=== PATIENT | female | born 1955 | race Caucasian/White ===

== ENCOUNTER 2021-01-14 10:54 | Emergency (ER) | payer MEDICARE, MEDICAID, SELFPAY ==
[2021-01-14] VITALS (17 sets, daily range): BP systolic 149–219; BP diastolic 61–78; PULSE 53–79; RESP 12–22; O2SAT 94–98
--- NOTE | ~2021-01-14 | CT_ITS ---
EXAMINATION: CTA brain carotid EXAM DATE: 01/14/2021 13:13 INDICATION: Headache, left neck pain, r/o dissection. TECHNIQUE: Noncontrast head CT. Spiral CTA of the carotid arteries was performed with intravenous i njection 100 cc of Omnipaque 350. Axial, coronal, sagittal reformatted images reviewed. Additional r eformatted images created on dedicated 3-D workstation. NASCET comparable standard used to assess th e degree of arterial stenosis. Spiral CT angiogram cerebral arteries performed with the same intrave nous injection of contrast. Source images of the brain CTA transferred to dedicated workstation for 3 -D rotational image creation. Coronal, sagittal maximum intensity pixel images also reviewed. The d ose-length product (DLP) for this examination was 1702.71 mGy-cm. The exposure was tailored accordi ng to patient size, and iterative reconstruction (ASIR) was used as additional dose reduction techniq ue. There is no prior study for comparison. FINDINGS: There is shelflike plaque at the aortic arch just proximal to the left subclavian origin, p rojecting into the lumen of the aortic arch, with short band (about 1 cm) of fibrous plaque or intima l flap inferior to this. No carotid, subclavian or vertebral artery dissection. There is right caroti d bulb 25% stenosis and left carotid bulb 40% stenosis. There is dense circumferential plaque of the intracranial carotid arteries with no more than mild stenosis suspected. Left vertebral artery is dom inant. There are no cerebral artery aneurysms. There is symmetric cerebral artery arborization. The s agittal, transverse and sigmoid sinuses enhance normally, no venous sinus thrombosis. Internal cerebr al veins also enhance normally. There is no acute intraparenchymal hemorrhage. No evidence of intraparenchymal brain mass lesion. N o evidence of acute infarction. There is moderate periventricular and subcortical hypodensity, nonspe cific but probably related to small vessel ischemic disease. There is mild prominence of the sulci and ventricles related to cerebral atrophy. There is no mass effect or midline shift. There is no obstructive hydrocephalus suspected. There are no extra-axial collections. Incidental Findings: Mild emphysema. Right upper lobe granuloma. Advanced cervical arthropathy. IMPRESSION: 1. Aortic arch shelflike plaque projecting into the lumen with small thin band extending from this t o aortic arch. Could be considered small intimal flap/dissection. 2. Right carotid bulb 25% stenosis, left 40% stenosis. 3. Age-related intracranial findings. Reviewed, dictated and finalized at location B. IMPRESSION: 1. Aortic arch shelflike plaque projecting into the lumen with small thin band extending from this to aortic arch. Could be considered small intimal flap/dis section. 2. Right carotid bulb 25% stenosis, left 40% stenosis. 3. Age-related intracranial findings.
--- NOTE | 2021-01-14 11:06 | ECG_ITS ---
Measurements Intervals [place] Rate: 67 P: 63 DE: 215 QRS: 59 QRSD: 103 T: 60 QT: 424 QTc: 449 Interpretive Statements SINUS RHYTHM WITH FIRST DEGREE AV BLOCK BASELINE ARTIFACT- I, II, AVR, AVL ,AVF, V1, V6 ABNORMAL ECG Electronically Signed On 01-14-2021 11:46:28 CDT by Kennedy Dykes D.O.
[2021-01-14 11:09] LABS: Glucose Point of Care 272 mg/dl (65-105)
[2021-01-14 11:23] LABS: Basophils Absolute Auto 0.1 K/mm3 (0.0-0.1); Basophils Percent Auto 0.7 % (0.2-1.2); Eosinophils Absolute Auto 0.1 K/mm3 (0-0.3); Eosinophils Percent Auto 1.3 % (0-4.4); Hematocrit 46.1 % (37.0-47.0); Hemoglobin 15.2 g/dL (12.0-15.0); Immature Granulocyte Absolute 0.03 K/mm3 (0.00-0.031); Immature Granulocyte Percent A 0.3 % (0-0.5); Lymphocytes Absolute Auto 4.27 K/mm3 (0.9-3.2); Lymphocytes Percent Auto 43.6 % (18.3-44.2); Mean Corpuscular Hemoglobin 29.6 pg (26-34); Mean Corpuscular Volume 89.7 fl (80-100); Mean Platelet Volume 10.3 fl (7.4-10.4); Monocytes Absolute Auto 0.7 K/mm3 (0.1-0.6); Monocytes Percent Auto 7.2 % (2.6-8.5); Neutrophils Absolute Auto 4.6 K/mm3 (1.3-6.7); Neutrophils Percent Auto 46.9 % (45.5-73.1); Platelet Count Result 193 k/mm3 (150-375); Red Blood Count 5.14 M/mm3 (4.2-5.4); Red Cell Distribution Width 13.8 % (11.5-14.5); White Blood Count 9.8 K/mm3 (4.5-10.0)
[2021-01-14 11:36] LABS: Alanine Aminotransferase 18 U/L (4-35); Albumin Level 4.1 g/dL (3.5-5.1); Alkaline Phosphatase 52 U/L (38-126); Anion Gap 7 mmol/L (8-16); Aspartate Amino Transferase 25 U/L (14-36); Blood Urea Nitrogen 11 mg/dL (7-17); Calcium 9.2 mg/dL (8.4-10.2); Carbon Dioxide 29 mmol/L (22-30); Chloride 103 mmol/L (98-107); Estimated CRCL calculation 67 ml/min; Estimated Glomerular Filt Rate > 60; Glucose 265 mg/dL (65-105); Sodium 139 mmol/L (137-145)
[2021-01-14 11:37] LABS: Add Urine Microscopic? YES; Appearance Urine Cloudy (Clear); Bacteria Urine Trace /hpf; Bilirubin Urine Negative (Negative); Blood Urine Negative (Negative); Color Urine Amber (Yellow); Glucose Urine UA 1+ mg/dL (Negative); Ketones Urine Trace mg/dL (Negative); Leukocyte Esterase Ur 1+ LEU/UL (Negative); Mucus Urine Few /lpf; Nitrate Urine Negative (Negative); Protein Urine 2+ mg/dL (Negative); Specific Grav Ur 1.027 (1.001-1.035); Squamous Epithelial Cell Urine Many /hpf (Few); WBC Urine 31-50 /hpf
--- NOTE | 2021-01-14 12:02 | ED.GENADULT ---
HPI - General Adult General Chief complaint: Weakness Stated complaint: Multiple Complaints Time Seen by Provider: 01/14/21 11:12 Source: patient History of Present Illness HPI narrative: Patient is a 65 y/o female complaining of generalized headache since yesterday. She describes her pain as a hurting pain. She took Tylenol, which did not help. She rates her headache as 10/10. She also has nausea, vomiting, left neck pain and generalized weakness. She denies focal weakness. Related Data Home Medications Medication Instructions Recorded Confirmed alprazolam 01/14/21 01/14/21 aspirin 81 mg PO DAILY 01/14/21 carvedilol 01/14/21 ezetimibe mg 01/14/21 furosemide 01/14/21 insulin lispro 01/14/21 lisinopril 01/14/21 Allergies Allergy/AdvReac Type Severity Reaction Status Date / Time codeine Allergy Unknown Nausea and Verified 01/14/21 14:22 Vomiting Review of Systems Constitutional: Constitutional: Denies chills, Denies fever(s), Reports headache(s) and Reports weakness Eyes: Eyes: Denies blurry vision ENT: Reports headache(s) and Reports neck pain Cardiovascular: Cardiovascular: Denies chest pain and Denies dyspnea Respiratory: Respiratory: Denies cough and Denies dyspnea Gastrointestinal: Gastrointestinal: Denies abdominal pain, Denies diarrhea, Denies nausea and Denies vomiting Genitourinary: Genitourinary: Denies hematuria and Denies dysuria Musculoskeletal: Musculoskeletal: Denies back pain and Reports neck pain Neurologic: Reports headache(s) and Reports weakness Exam Const: General: no acute distress and well developed Orientation/consciousness: oriented to person, oriented to place, oriented to time and patient oriented x3 HENMT: Head: normocephalic Ears: external ears normal General nose exam: Normal external nose present Eyes: General: appearance normal, both eyes and all related structures Conjunctivae: conjunctivae normal Neck: Neck: normal visual inspection and full ROM Chest: Chest palpation & inspection: normal inspection of the chest and no tenderness Resp: Effort & Inspection: normal respiratory effort Auscultation: clear to auscultation bilaterally Cardio: Rate: regular rate Rhythm: regular rhythm GI: GI Palp: No abdominal tenderness and Yes Soft to palpation Skin: General skin exam: normal color and turgor normal Neuro: General: oriented to person, oriented to place, oriented to time and patient oriented x3 Cranial nerves: Yes CN's II-XII intact bilaterally Cognition (Neuro): normal cognition Speech: normal speech Motor exam (neuro): 5/5 motor strength present throughout Sensory Exam: normal sensation Coordination: [id number] test normal and [id number] test normal Extrem: General: normal to inspection, full ROM and no pedal edema Psych: Appearance: grossly normal Mental Status: mental status grossly normal Affect: normal affect Course Consultations Consultation #1: Discussed with Dr. Silva (cardiothoracic surgery), who agrees to accept the patient to [facility]. Discussed with Dr. Watkins (EDP), who agrees to accept the patient to ED. He also recommends transferring patient by air if possible. Date: 01/14/21 Time: 14:08 Vital Signs Vital signs: Vital Signs Pulse Rate 67 01/14/21 11:01 Respiratory Rate 15 01/14/21 11:01 Blood Pressure 180/67 H 01/14/21 11:01 Pulse Oximetry 94 01/14/21 11:01 Pulse Rate 58 L 01/14/21 14:25 Respiratory Rate 16 01/14/21 14:22 Blood Pressure 219/62 H 01/14/21 14:25 Pulse Oximetry 95 01/14/21 14:22 Medical Decision Making Vital Signs Vital Signs: Vital Signs Pulse Rate 67 01/14/21 11:01 Respiratory Rate 15 01/14/21 11:01 Blood Pressure 180/67 H 01/14/21 11:01 Pulse Oximetry 94 01/14/21 11:01 Pulse Rate 58 L 01/14/21 14:25 Respiratory Rate 16 01/14/21 14:22 Blood Pressure 219/62 H 01/14/21 14:25 Pulse Oximetry 95 01/14/21 14:22 Lab Data Resu
[2021-01-14] MEDS: METOCLOPRAMIDE HCL INJ 10 MG/2 ML VIAL IV PUSH (12:37)
[2021-01-14] MEDS: KETOROLAC 30 MG/ML VIAL (*BKC) IV PUSH (12:38)
[2021-01-14] MEDS: diphenhydrAMINE HCl INJ 50 MG/ML VIAL 25 MG IV PUSH (12:38)
[2021-01-14] MEDS: SODIUM CHLORIDE 0.9% IV 1,000 ML 999 ML IV CONT (12:42)
[2021-01-14] MEDS: niCARdipine 20 MG/200 ML 20 MG/200 ML BAG 50 MG IV CONT (14:25)
--- NOTE | 2021-01-29 13:04 | PC.NURSE ---
LATE ENTRY This note is being entered to document information to the patient's record. The following information was omitted on [01/29/21], by [Taylor This medication was initiated at 1425 on 01/14/21 was continued infusing with flight crew. Pt transferred at 1445. Approx 15 mls infused prior to leaving
== END 2021-01-14 14:45 | disposition short-term general hospital (02) ==
PROVIDERS: Emergency Medicine; Emergency Provider Emergency Medicine; PCP Internal Medicine
DX: I71.01 Dissection of thoracic aorta (principal); R51.9 Headache, unspecified; I10 Essential (primary) hypertension; Z79.82 Long term (current) use of aspirin; Z79.4 Long term (current) use of insulin; I44.0 Atrioventricular block, first degree; J44.9 Chronic obstructive pulmonary disease, unspecified; E11.9 Type 2 diabetes mellitus without complications; R82.998 Other abnormal findings in urine
CPT/HCPCS: 36415; 70496; 70498; 80053; 81001; 82948; 85025; 87086; 87088; 93005; 96361; 96374; 96375; 99291; J1200; J1885; J2765; J7030; Q9967

== ENCOUNTER 2021-01-17 05:36 | Inpatient (IN) | payer MEDICARE, MEDICAID, SELFPAY ==
[2021-01-17] VITALS (32 sets, daily range): BP systolic 120–203; BP diastolic 54–81; PULSE 64–96; RESP 14–29; TEMP 36.4–37.7; O2SAT 85–99; BMI 39.8
--- NOTE | ~2021-01-17 | XR_ITS ---
EXAMINATION: XR chest 1V portable INDICATION: Shortness of breath TECHNIQUE: Portable AP chest at 0645 hours COMPARISON: 06/10/2004 FINDINGS: The lungs are free of acute opacities. There is no pleural effusion or pneumothorax. The ca rdiomediastinal silhouette is normal. The visualized bones and soft tissues are unremarkable. IMPRESSION: 1. No acute cardiopulmonary abnormality. Reviewed, dictated and finalized at location A.
--- NOTE | ~2021-01-17 | CT_ITS ---
EXAMINATION: CTA chest PE protocol DATE: 01/19/2021 13:37 INDICATION: Hypoxia TECHNIQUE: Computed tomography angiography (CTA) of the chest was performed with 100 mL Omnipaque-350 intravenous contrast timed to evaluate the pulmonary arteries. Coronal maximum intensity projection 3D-reconstructions were created by the technologist. The dose-length product (DLP) was 691.76 mGy-cm. Automated exposure control and iterative reconstruction technique were employed. COMPARISON: None. FINDINGS: The pulmonary arteries are well-opacified. No pulmonary embolism is identified. A calcified nodule of the right upper lobe is consistent with old granulomatous disease. The lungs are free of a cute opacities. There is no pleural effusion or pneumothorax. There is mild dependent atelectasis. No pathologically enlarged thoracic lymph nodes are identified. The heart size is normal. There is mode rate thoracic spondylosis. The gallbladder is surgically absent. Punctate calcifications in an otherw ise normal spleen likely represent healed granulomatous disease. IMPRESSION: 1. No pulmonary embolism or acute cardiopulmonary abnormality. Reviewed, dictated and finalized at location A.
--- NOTE | ~2021-01-17 | XR_ITS ---
EXAMINATION: XR knee RT 2V DATE: 01/17/2021 14:01 INDICATION: Right knee pain TECHNIQUE: Two views of the right knee were obtained. COMPARISON: None. FINDINGS: Alignment is normal. No fracture or osteochondral lesion. There is mild tricompartmental os teoarthritis characterized by tiny marginal osteophytes. No joint effusion/synovitis. Calcified athe rosclerosis is noted. IMPRESSION: 1. No acute osseous abnormality. Reviewed, dictated and finalized at location A.
--- NOTE | ~2021-01-17 | XR_ITS ---
EXAMINATION: XR knee LT 2V DATE: 01/17/2021 14:01 INDICATION: Left knee pain TECHNIQUE: Two views of the left knee were obtained. COMPARISON: None. FINDINGS: Alignment is normal. No fracture or osteochondral lesion. There is mild tricompartmental os teoarthritis characterized by tiny marginal osteophytes. No joint effusion/synovitis. Calcified athe rosclerosis is noted. IMPRESSION: 1. No acute osseous abnormality. Reviewed, dictated and finalized at location A.
[2021-01-17 05:48] LABS: Glucose Point of Care 281 mg/dl (65-105)
[2021-01-17] MEDS: IPRATROPIUM BR 0.02% INH SOLN 0.5 MG/2.5 ML VIAL INHALATION ×2 (06:13→19:34)
[2021-01-17] MEDS: ALBUTEROL SULFATE NEB 2.5 MG/0.5 ML INH 5 MG INHALATION ×2 (06:13→19:33)
--- NOTE | 2021-01-17 06:18 | ED.GENADULT ---
HPI - General Adult General Chief complaint: Fall <Te Campbell MD - Last Filed: 01/17/21 06:49> Stated complaint: fall, vomiting <Te Campbell MD - Last Filed: 01/17/21 06:49> Time Seen by Provider: 01/17/21 05:39 <Te Campbell MD - Last Filed: 01/17/21 06:49> History of Present Illness HPI narrative: Patient is a 65-year-old female who presents ER status post fall. Patient reports she got up was walking to her kitchen to her bathroom when she slipped and fell. She landed on her knees on her buttock. She did not strike her head or lose consciousness. She has been having some emesis which is why she is going to bathroom. This is causing her a lot of discomfort. Patient was recently seen here on 01/14 and diagnosed with possible aortic dissection. She went to [facility] where further work-up revealed she was not having acute dissection of aorta and she was discharged home. She was at home and feeling unwell and went to [facility] on 01/16/2021. There she is diagnosed with urinary tract infection due to having discolored urine and placed on antibiotic. Patient also endorses shortness of breath upon arrival. She is wheezing and has history of COPD. She has not used any of her home medications. <Te Campbell MD - Last Filed: 01/17/21 06:49> Related Data Home medications: Home Medications Medication Instructions Recorded Confirmed alprazolam 01/14/21 01/14/21 aspirin 81 mg PO DAILY 01/14/21 carvedilol 01/14/21 ezetimibe mg 01/14/21 furosemide 01/14/21 insulin lispro 01/14/21 lisinopril 01/14/21 <Te Campbell MD - Last Filed: 01/17/21 06:49> Allergies/adverse reactions: Allergies Allergy/AdvReac Type Severity Reaction Status Date / Time codeine Allergy Unknown Nausea and Verified 01/14/21 14:22 Vomiting sulfamethoxazole Allergy Nausea and Verified 01/17/21 09:50 [From Bactrim] Vomiting trimethoprim [From Bactrim] Allergy Nausea and Verified 01/17/21 09:50 Vomiting <Te Campbell MD - Last Filed: 01/17/21 06:49> Review of Systems Review of Systems: All systems reviewed & are unremarkable except as noted in HPI and below <Te Campbell MD - Last Filed: 01/17/21 06:49> Constitutional: Constitutional: Denies chills, Denies fever(s) and Reports weakness <Te Campbell MD - Last Filed: 01/17/21 06:49> ENT: Denies nasal congestion and Denies sore throat <Te Campbell MD - Last Filed: 01/17/21 06:49> Cardiovascular: Cardiovascular: Denies chest pain, Denies rapid heart rate and Denies radiating jaw, neck or arm pain <Te Campbell MD - Last Filed: 01/17/21 06:49> Respiratory: Respiratory: Reports cough, Reports dyspnea and Denies wheezing <Te Campbell MD - Last Filed: 01/17/21 06:49> Gastrointestinal: Gastrointestinal: Denies abdominal pain, Denies diarrhea, Reports nausea and Reports vomiting <Te Campbell MD - Last Filed: 01/17/21 06:49> Genitourinary: Genitourinary: Reports dysuria, Denies flank pain and Denies urinary incontinence <Te Campbell MD - Last Filed: 01/17/21 06:49> PMFSH Past Medical History Medical History: Medical History (Updated 01/17/21 @ 10:49 by Jordin Parish MD) Anxiety COPD (chronic obstructive pulmonary disease) Diabetes Hypertension <Te Campbell MD - Last Filed: 01/17/21 06:49> Surgical History Surgical History: Surgical History (Updated 01/17/21 @ 06:23 by Te Campbell MD) History of cholecystectomy History of hysterectomy History of tonsillectomy <Te Campbell MD - Last Filed: 01/17/21 06:49> Social History Social History: Social History (Updated 01/17/21 @ 06:25 by Te Campbell MD) Smoking status: Current every day smoker <Te Campbell MD - Last Filed: 01/17/21 06:49> Exam Narrative: Exam Narrative: GENERAL: chronically ill-appearing, well-nourished, and
[2021-01-17] MEDS: ONDANSETRON INJ 4 MG/2 ML VIAL IV PUSH ×2 (06:23→13:39)
[2021-01-17 06:33] LABS: Basophils Absolute Auto 0.1 K/mm3 (0.0-0.1); Basophils Percent Auto 0.7 % (0.2-1.2); Eosinophils Percent Auto 0.3 % (0-4.4); Hematocrit 42.7 % (37.0-47.0); Hemoglobin 14.5 g/dL (12.0-15.0); Immature Granulocyte Absolute 0.06 K/mm3 (0.00-0.031); Immature Granulocyte Percent A 0.7 % (0-0.5); Lymphocytes Absolute Auto 0.93 K/mm3 (0.9-3.2); Lymphocytes Percent Auto 10.3 % (18.3-44.2); Mean Corpuscular Hemoglobin 29.8 pg (26-34); Mean Corpuscular Volume 87.7 fl (80-100); Mean Platelet Volume 10.6 fl (7.4-10.4); Monocytes Absolute Auto 0.5 K/mm3 (0.1-0.6); Monocytes Percent Auto 5.3 % (2.6-8.5); Neutrophils Absolute Auto 7.5 K/mm3 (1.3-6.7); Neutrophils Percent Auto 82.7 % (45.5-73.1); Platelet Count Result 160 k/mm3 (150-375); Red Blood Count 4.87 M/mm3 (4.2-5.4); Red Cell Distribution Width 13.6 % (11.5-14.5); White Blood Count 9.1 K/mm3 (4.5-10.0)
[2021-01-17 06:37] LABS: Add Urine Microscopic? YES; Appearance Urine Clear (Clear); Bilirubin Urine Negative (Negative); Blood Urine 2+ (Negative); Color Urine Yellow (Yellow); Glucose Urine UA 3+ mg/dL (Negative); Ketones Urine Trace mg/dL (Negative); Leukocyte Esterase Ur 1+ LEU/UL (Negative); Mucus Urine Rare /lpf; Nitrate Urine Negative (Negative); Protein Urine Negative (Negative); Specific Grav Ur 1.027 (1.001-1.035); Squamous Epithelial Cell Urine Few /hpf (Few); Urobilinogen Urine Negative mg/dL (<2.0); WBC Urine 31-50 /hpf
[2021-01-17 06:45] LABS: Alanine Aminotransferase 20 U/L (4-35); Alkaline Phosphatase 54 U/L (38-126); Anion Gap 8 mmol/L (8-16); Aspartate Amino Transferase 26 U/L (14-36); Bilirubin,Total 0.5 mg/dL (0.2-1.3); Blood Urea Nitrogen 8 mg/dL (7-17); Calcium 8.8 mg/dL (8.4-10.2); Carbon Dioxide 26 mmol/L (22-30); Chloride 104 mmol/L (98-107); Estimated CRCL calculation 77 ml/min; Estimated Glomerular Filt Rate > 60; Glucose 283 mg/dL (65-105); Lipase 68 U/L (23-300); Potassium 3.7 mmol/L (3.4-5.0); Sodium 138 mmol/L (137-145)
--- NOTE | 2021-01-17 07:08 | PC.NURSE ---
Report to [facility]
--- NOTE | 2021-01-17 10:59 | ADMGEN ---
This patient, Marilynn Pinon, was admitted to 2 Medical Room 248-. Patient/family oriented to hospital policies and general routines including ID bracelet, bed and alarms, visiting hours, pain management, procedures, bathroom and other care routines, personal items, smoking policy, room service/diet, and visiting hours. Information on how to activate the Rapid Response Team has been discussed. Patient/Family are encouraged to report perceived risks to care and to ask questions if they do not understand what they are told or what they should do.
[2021-01-17 11:04] LABS: Glucose Point of Care 258 mg/dl (65-105)
--- NOTE | 2021-01-17 12:52 | PM.IMHP ---
H&P: HPI History of Present Illness Date/Time: 01/17/21 12:52 this is a 65-year-old female patient who lives home alone. The patient came to the emergency room due to a fall that she sustained. The patient stated that she was in her living room and was walking there for kitchen to get to the bathroom when her knees gave out and she fell landed on her knees and on her buttocks. The patient stated she did not hit her head and that only her knees are hurting. When I examined her she complained of some left lower quadrant pain. Patient had a CT scan on 01/15/2020 Which was read as. 1 Aortic arch shelflike plaque projecting into the lumen with small thin band extending from this to aortic arch. Could be considered small intimal flap/dissection. 2. Right carotid bulb 25% stenosis, left 40% stenosis. 3. Age-related intracranial findings. The patient had been sent to [facility] and was told that she has aortic flap which did not require any medical treatment. The patient complained of shortness of breath that he in her chest x-ray was read as no acute cardiopulmonary hearing abnormal. The patient was placed on oxygen at 2 L per nasal cannula and she was wheezing. The patient's O2 saturation on room air today was between 85 and 89% prior to the oxygen. Was given nebulizer treatments in the emergency room. On ceftriaxone. Patient was complaining of nausea and was given Zofran. Have been in the 200s. She does have an insulin pump was removed when she was admitted to the floor. The patient is being admitted to observation status on the date of service of 01/17/2021 Chief Complaint: Fall Review of Systems Review of Systems: All systems reviewed & are unremarkable except as noted in HPI and below Constitutional: Constitutional: Reports as per HPI and Reports no additional constitutional complaints Eyes: Eyes: Reports as per HPI and Reports no additional eye complaints ENT: Reports system reviewed and no additional complaints, except as documented and Reports Normal hearing present Cardiovascular: Cardiovascular: Reports no additional cardiovascular complaints Respiratory: Respiratory: Reports no additional respiratory complaints and Reports no additional respiratory complaints Gastrointestinal: Gastrointestinal: Reports as per HPI and Reports no additional gastrointestinal complaints Musculoskeletal: Musculoskeletal: Reports no additional musculoskeletal complaints Integumentary/Breasts: Skin/Breast: Reports system reviewed and no additional complaints, except as docu and Reports as per HPI Neurologic: Reports system reviewed and no additional complaints, except as documented, Reports as per HPI and Reports Normal hearing present Psychiatric: Psychiatric: Reports no additional psychiatric complaints and Reports as per HPI Endocrine: Endocrine: Reports no additional endocrine complaints Hematologic/Lymphatic: Hematologic/Lymphatic: Reports no additional hematologic/lymphatic complaints Allergic/Immunologic: Allergic/Immunologic: Reports no additional allergic/immunologic complaints [facility] Past Medical History Medical History (Updated 01/17/21 @ 13:11 by Nella Aguayo NP) Anxiety CHF (congestive heart failure), NYHA class I COPD (chronic obstructive pulmonary disease) Diabetes History of CVA (cerebrovascular accident) Hypertension Surgical History Surgical History History of cholecystectomy History of hysterectomy History of tonsillectomy Family History Family History (Updated 01/17/21 @ 11:29 by Jami Estevez RN) Father Diabetes mellitus Mother Diabetes mellitus Sibling Diabetes mellitus Social History Social History (Updated 01/17/21 @ 13:12 by Nella Aguayo NP) Social History: The patient is and lives home alone. She has 2 children. Her daughter is a durable power assistant city attorney for healthcare. The patient desires to be a full code. The patie
[2021-01-17] MEDS: SODIUM CHLORIDE 0.9% IV 1,000 ML 125 ML IV CONT ×2 (13:29→21:52)
[2021-01-17] MEDS: ACETAMINOPHEN 325 MG TABLET 650 MG PO (13:51)
[2021-01-17 17:51] LABS: Glucose Point of Care 280 mg/dl (65-105)
[2021-01-17] MEDS: ASPIRIN 81 MG CHEWABLE TABLET PO (18:46)
[2021-01-17] MEDS: lisinopriL 20 MG TABLET PO (18:46)
[2021-01-17] MEDS: carvediloL 12.5 MG TABLET PO (18:47)
[2021-01-17] MEDS: FUROSEMIDE INJ 40 MG/4 ML VIAL IV PUSH (18:47)
[2021-01-17] MEDS: EZETIMIBE 10 MG TABLET PO (18:49)
[2021-01-17] MEDS: INSULIN ASPART (*BKC) 100 UNITS/ML SUB-Q (18:52)
[2021-01-17] MEDS: ALPRAZolam (*CRX) 0.5 MG TABLET 1 MG PO (19:14)
[2021-01-17 20:52] LABS: Glucose Point of Care 311 mg/dl (65-105)
[2021-01-17] MEDS: FAMOTIDINE 20 MG/2 ML VIAL IV PUSH (21:53)
[2021-01-17] MEDS: MONTELUKAST SODIUM 10 MG TABLET PO (21:53)
[2021-01-18] VITALS (16 sets, daily range): BP systolic 140–158; BP diastolic 47–57; PULSE 59–82; RESP 16–20; TEMP 36.1–36.6; O2SAT 94–99
[2021-01-18] MEDS: IPRATROPIUM BR 0.02% INH SOLN 0.5 MG/2.5 ML VIAL INHALATION ×4 (02:30→19:48)
[2021-01-18] MEDS: ALBUTEROL SULFATE NEB 2.5 MG/0.5 ML INH 5 MG INHALATION ×4 (02:30→19:48)
[2021-01-18 05:31] LABS: Basophils Absolute Auto 0.1 K/mm3 (0.0-0.1); Basophils Percent Auto 0.9 % (0.2-1.2); Eosinophils Absolute Auto 0.2 K/mm3 (0-0.3); Eosinophils Percent Auto 3.3 % (0-4.4); Hematocrit 40.9 % (37.0-47.0); Hemoglobin 12.9 g/dL (12.0-15.0); Immature Granulocyte Absolute 0.02 K/mm3 (0.00-0.031); Immature Granulocyte Percent A 0.3 % (0-0.5); Immature Platelet Fraction Pct 3.6 % (0.9-11.2); Lymphocytes Absolute Auto 1.04 K/mm3 (0.9-3.2); Mean Corpuscular HGB Conc 31.5 g/dl (32-36); Mean Corpuscular Hemoglobin 29.3 pg (26-34); Mean Platelet Volume 10.6 fl (7.4-10.4); Monocytes Absolute Auto 0.7 K/mm3 (0.1-0.6); Monocytes Percent Auto 11.4 % (2.6-8.5); Neutrophils Absolute Auto 3.8 K/mm3 (1.3-6.7); Neutrophils Percent Auto 66.1 % (45.5-73.1); Platelet Count Result 140 k/mm3 (150-375); Red Cell Distribution Width 13.8 % (11.5-14.5); White Blood Count 5.8 K/mm3 (4.5-10.0)
[2021-01-18 05:45] LABS: Alanine Aminotransferase 16 U/L (4-35); Albumin Level 3.5 g/dL (3.5-5.1); Alkaline Phosphatase 41 U/L (38-126); Anion Gap 6 mmol/L (8-16); Aspartate Amino Transferase 17 U/L (14-36); Bilirubin,Total 0.3 mg/dL (0.2-1.3); Blood Urea Nitrogen 8 mg/dL (7-17); Calcium 8.6 mg/dL (8.4-10.2); Carbon Dioxide 31 mmol/L (22-30); Chloride 104 mmol/L (98-107); Estimated CRCL calculation 68 ml/min; Estimated Glomerular Filt Rate > 60; Glucose 244 mg/dL (65-105); Magnesium 1.8 mg/dL (1.6-2.3); Potassium 3.8 mmol/L (3.4-5.0); Sodium 141 mmol/L (137-145)
[2021-01-18 05:46] LABS: Lactic Acid Reflex 1.1 mmol/L (0.7-2.1)
[2021-01-18 06:19] LABS: Thyroid Stimulating Hormone Reflex 0.617 uIU/mL (0.465-4.68)
[2021-01-18 08:09] LABS: Glucose Point of Care 230 mg/dl (65-105)
[2021-01-18] MEDS: INSULIN ASPART (*BKC) 100 UNITS/ML SUB-Q ×3 (08:54→18:24)
[2021-01-18] MEDS: FUROSEMIDE INJ 40 MG/4 ML VIAL IV PUSH (08:56)
[2021-01-18] MEDS: lisinopriL 20 MG TABLET PO (08:56)
[2021-01-18] MEDS: FAMOTIDINE 20 MG/2 ML VIAL IV PUSH ×2 (08:56→20:55)
[2021-01-18] MEDS: ASPIRIN 81 MG CHEWABLE TABLET PO (08:56)
[2021-01-18] MEDS: carvediloL 12.5 MG TABLET PO ×2 (08:56→17:24)
--- NOTE | 2021-01-18 11:59 | PM.IMPN ---
Progress Note: A&P Assessment and Plan (1) Fall: Code(s): W19.XXXA - Unspecified fall, initial encounter Status: Acute Assessment and Plan: She had a mechanical fall at home on 01/17/2021. She fell and landed on her knees and buttocks. She did not hit her head. Bilateral knee x-rays were normal. Fall precautions Appreciate PT/OT eval (2) UTI (urinary tract infection): Qualifiers: Hematuria presence: without hematuria Urinary tract infection type: acute cystitis Qualified Code(s): N30.00 - Acute cystitis without hematuria Code(s): N39.0 - Urinary tract infection, site not specified Status: Acute Assessment and Plan: UA abnormal at presentation. She had low-grade temperature of 99.8?. No leukocytosis. Continue IV Rocephin Urine cultures pending. Await results and tailor antibiotics accordingly. Blood cultures are pending (3) COPD exacerbation: Code(s): J44.1 - Chronic obstructive pulmonary disease with (acute) exacerbation Status: Acute Assessment and Plan: Wheezing noted upon presentation. She is requiring 2 L per nasal cannula, though no hypoxic episodes have been documented. Continue scheduled nebulized breathing treatments She has declined IV steroids Supplemental O2 available as needed with goal saturation 90% or above. Wean to goal. (4) Diabetes: Code(s): E11.9 - Type 2 diabetes mellitus without complications Status: Chronic Assessment and Plan: A1c is 9.2. Blood sugars are elevated above target. Last glucose was 254. She has an insulin pump but requires the assistance of her daughter to function it and would prefer to not use it during her hospitalization. She is not able to tell me her daily insulin requirement. Continue Accu-Cheks, sliding scale insulin, hypoglycemic protocol Will add scheduled novolog 5 units with meals and basal insulin 20 units Lantus qHS. Monitor blood sugars and adjust regimen as needed. Insulin pump discontinued. (5) Hypertension: Qualifiers: Hypertension type: unspecified Qualified Code(s): I10 - Essential (primary) hypertension Code(s): I10 - Essential (primary) hypertension Status: Chronic Assessment and Plan: Blood pressure reviewed and has been running high. Improved today. Last BP 158/54. Continue lisinopril and carvedilol (6) CHF (congestive heart failure), NYHA class I: Code(s): I50.9 - Heart failure, unspecified Status: Chronic Assessment and Plan: Reports she has not taken her Lasix in some time because she ran out of her prescription. Overall appears euvolemic. Continue Lasix. Switch to 40 mg daily PO Monitor intake and output. Weigh daily. Heart healthy diet Subjective Date/time seen: 01/18/21 11:59 Interval history: Date of service: 01/18/2021 Marilynn Pinon is a 65-year-old female with history of CHF, COPD, diabetes mellitus, hypertension, history of CVA who is seen in follow-up for UTI and COPD exacerbation. She complains of shortness of breath today and notes dyspnea on exertion. She reports cough productive of clear-yellow sputum. She denies wheezing. Denies orthopnea. Feels her lower extremity edema is unchanged and typical with her baseline. Denies fever or chills. No chest pain or palpitations. She has been urinating frequently but denies dysuria or hematuria. No suprapubic pain, flank pain, or back pain. Denies abdominal pain, nausea, vomiting, diarrhea. Has been good. She has no other complaints at this time. Review of Systems Review of Systems: All systems reviewed & are unremarkable except as noted in HPI and below Exam Narrative: Exam Narrative: Ms Pinon is an obese, well-appearing 65-year-old female who is sitting in a chair by the bedside. She appears comfortable and is in NARD. Neuro: awake, alert and oriented x4, speech clear, no focal neuro deficits
[2021-01-18 12:07] LABS: Glucose Point of Care 254 mg/dl (65-105)
[2021-01-18 12:32] LABS: Hemoglobin A1C 9.2 % (<5.7)
[2021-01-18] MEDS: EZETIMIBE 10 MG TABLET PO (17:24)
[2021-01-18 18:49] LABS: Glucose Point of Care 248 mg/dl (65-105)
[2021-01-18] MEDS: MONTELUKAST SODIUM 10 MG TABLET PO (20:55)
[2021-01-18] MEDS: INSULIN GLARGINE (*BKC) 100 UNITS/ML 20 UNITS SUB-Q (20:58)
[2021-01-18] MEDS: ALPRAZolam (*CRX) 0.5 MG TABLET 1 MG PO (21:04)
[2021-01-18 22:17] LABS: Glucose Point of Care 307 mg/dl (65-105)
[2021-01-19] VITALS (24 sets, daily range): BP systolic 136–172; BP diastolic 49–89; PULSE 54–77; RESP 18–185; TEMP 36.1–36.6; O2SAT 84–99
[2021-01-19] MEDS: IPRATROPIUM BR 0.02% INH SOLN 0.5 MG/2.5 ML VIAL INHALATION ×4 (01:43→20:28)
[2021-01-19] MEDS: ALBUTEROL SULFATE NEB 2.5 MG/0.5 ML INH 5 MG INHALATION ×4 (01:43→20:28)
[2021-01-19 05:32] LABS: Hematocrit 37.5 % (37.0-47.0); Hemoglobin 12.4 g/dL (12.0-15.0); Immature Platelet Fraction Pct 4.4 % (0.9-11.2); Mean Corpuscular HGB Conc 33.1 g/dl (32-36); Mean Corpuscular Hemoglobin 29.4 pg (26-34); Mean Corpuscular Volume 88.9 fl (80-100); Mean Platelet Volume 10.6 fl (7.4-10.4); Platelet Count Result 126 k/mm3 (150-375); Red Blood Count 4.22 M/mm3 (4.2-5.4); Red Cell Distribution Width 13.6 % (11.5-14.5); White Blood Count 4.7 K/mm3 (4.5-10.0)
[2021-01-19 05:52] LABS: Anion Gap 3 mmol/L (8-16); Blood Urea Nitrogen 16 mg/dL (7-17); Calcium 8.6 mg/dL (8.4-10.2); Carbon Dioxide 34 mmol/L (22-30); Chloride 100 mmol/L (98-107); Estimated CRCL calculation 68 ml/min; Estimated Glomerular Filt Rate > 60; Glucose 307 mg/dL (65-105); Potassium 3.7 mmol/L (3.4-5.0); Sodium 137 mmol/L (137-145)
[2021-01-19 07:54] LABS: Glucose Point of Care 279 mg/dl (65-105)
[2021-01-19] MEDS: FUROSEMIDE 40 MG TABLET PO (08:14)
[2021-01-19] MEDS: ASPIRIN 81 MG CHEWABLE TABLET PO (08:14)
[2021-01-19] MEDS: lisinopriL 20 MG TABLET PO (08:14)
[2021-01-19] MEDS: FAMOTIDINE 20 MG/2 ML VIAL IV PUSH ×2 (08:14→21:17)
[2021-01-19] MEDS: carvediloL 12.5 MG TABLET PO ×2 (08:14→17:25)
[2021-01-19] MEDS: INSULIN ASPART (*BKC) 100 UNITS/ML SUB-Q ×4 (08:47→17:31)
[2021-01-19] MEDS: ACETAMINOPHEN 325 MG TABLET 650 MG PO (11:31)
[2021-01-19 12:14] LABS: Glucose Point of Care 337 mg/dl (65-105)
--- NOTE | 2021-01-19 15:32 | HOMEO2EVAL ---
Evaluation was performed at [facility] Home Oxygen Evaluation RC: Home Oxygen (O2) Evaluation Start: 01/17/21 13:15 Freq: ONCE Status: Active Protocol: RPE Activity Type Activity Date Activity User E-Sign Co-Sign Detail Recorded Client Recorded Date Recorded By Document 01/19/21 15:00 [email or web address] [email or web address] 01/19/21 15:32 DJO Document 01/19/21 15:05 [email or web address] [email or web address] 01/19/21 15:32 DJO Document 01/19/21 15:10 [email or web address] [email or web address] 01/19/21 15:32 DJO Document 01/19/21 15:15 [email or web address] [email or web address] 01/19/21 15:32 DJO Document 01/19/21 15:30 [email or web address] [email or web address] 01/19/21 15:32 DJO 01/19/21 01/19/21 01/19/21 15:00 15:05 15:10 Home O2 Evaluation Test Phase Resting Exercise Exercise Oxygen Delivery Room Air Room Air Nasal Cannula Oxygen Flow Rate (L/min) 1 Pulse Oximetry (90-100 %) 92 86 L 88 L Pulse Rate (60-100 beats/min) 55 L 74 75 Activity Tolerance Ambulation Distance (feet) Treatment Charges O2 Evaluation - Inpatient 01/19/21 01/19/21 15:15 15:30 Home O2 Evaluation Test Phase Exercise Resting Oxygen Delivery Nasal Cannula Room Air Oxygen Flow Rate (L/min) 2 Pulse Oximetry (90-100 %) 90 92 Pulse Rate (60-100 beats/min) 77 57 L Activity Tolerance Fair Ambulation Distance (feet) 200 Treatment Charges
--- NOTE | 2021-01-19 15:32 | PCRCNOTE ---
HOME OXYGEN EVAL COMPLETE, 2 LITERS WITH ACTIVITY. SET UP WITH [facility] PHONE NUMBER [phone]. TANK HAS BEEN DELIVERED TO PT'S ROOM FOR DISCHARGE.
[2021-01-19] MEDS: ALPRAZolam (*CRX) 0.5 MG TABLET 1 MG PO (15:49)
--- NOTE | 2021-01-19 15:54 | PM.IMPN ---
Progress Note: A&P Assessment and Plan (1) Fall: Code(s): W19.XXXA - Unspecified fall, initial encounter Status: Acute Assessment and Plan: She had a mechanical fall at home on 01/17/2021 some dizziness. She fell and landed on her knees and buttocks. She did not hit her head. Bilateral knee x-rays were normal. Fall precautions Could be due to hypoxia will need home oxygen evaluation closer to discharge Appreciate PT/OT eval (2) UTI (urinary tract infection): Qualifiers: Hematuria presence: without hematuria Urinary tract infection type: acute cystitis Qualified Code(s): N30.00 - Acute cystitis without hematuria Code(s): N39.0 - Urinary tract infection, site not specified Status: Acute Assessment and Plan: UA abnormal at presentation. But no symptoms and urine culture is negative IV Rocephin discontinued (3) COPD exacerbation: Code(s): J44.1 - Chronic obstructive pulmonary disease with (acute) exacerbation Status: Acute Assessment and Plan: Wheezing noted upon presentation. She is requiring 2 L per nasal cannula, though no hypoxic episodes have been documented. Patient is significantly wheezy Continue scheduled nebulized breathing treatments After further discussion, she is going to go forward with IV steroids. She says steroids make her stomach hurts ongoing add Protonix Will add azithromycin for inflammatory affect and COPD exacerbation CTA of the chest negative for acute pathology Supplemental O2 available as needed with goal saturation 90% or above. Wean to goal. Consider pulmonology consult if patient worsens (4) Diabetes: Code(s): E11.9 - Type 2 diabetes mellitus without complications Status: Chronic Assessment and Plan: A1c is 9.2. Blood sugars are elevated above target. Last glucose was 337 before steroids. She has an insulin pump but requires the assistance of her daughter to function it and would prefer to not use it during her hospitalization. She is not able to tell me her daily insulin requirement. Continue Accu-Cheks, sliding scale insulin, hypoglycemic protocol I have added scheduled novolog 5 units with meals, continued sliding scale insulin, and increased Lantus to 30 units Lantus qHS. Monitor blood sugars and adjust regimen as needed. Insulin pump discontinued. This may worsen on steroids (5) Hypertension: Qualifiers: Hypertension type: unspecified Qualified Code(s): I10 - Essential (primary) hypertension Code(s): I10 - Essential (primary) hypertension Status: Chronic Assessment and Plan: Blood pressure reviewed and has been running high. Improved today. Last BP 136/54 Continue lisinopril and carvedilol (6) CHF (congestive heart failure), NYHA class I: Code(s): I50.9 - Heart failure, unspecified Status: Chronic Assessment and Plan: Reports she has not taken her Lasix in some time because she ran out of her prescription. Overall appears euvolemic. Continue Lasix (ordered as scheduled now) Monitor intake and output. Weigh daily. Heart healthy diet Time Spent With Patient Time with patient: 25 - 35 minutes Subjective Date/time seen: 01/19/21 15:54 Interval history: Pt is a 65-year-old female here for COPD exacerbation and fall. Patient was seen today and is requiring oxygen and still feels wheezy. She has no lightheadedness today but was lightheaded/dizzy when she fell. She says she has a productive cough but does not look at the color. She feels short of breath and is having to use pillows to prop her up which has only been going on for a few days. She thinks her breathing is the same since she has been here. She denies chest pain, diarrhea, cough, leg swelling or headache. Review of Systems Review of Systems: All systems reviewed & are unremarkable except as noted in HPI and below Exam Narrative:
[2021-01-19] MEDS: EZETIMIBE 10 MG TABLET PO (17:25)
[2021-01-19 19:19] LABS: Glucose Point of Care 263 mg/dl (65-105)
[2021-01-19] MEDS: methylPREDNISolone SOD SUCC 40 MG VIAL IV PUSH (21:16)
[2021-01-19] MEDS: MONTELUKAST SODIUM 10 MG TABLET PO (21:17)
[2021-01-19] MEDS: INSULIN GLARGINE (*BKC) 100 UNITS/ML 30 UNITS SUB-Q (21:22)
[2021-01-19 21:39] LABS: Glucose Point of Care 285 mg/dl (65-105)
[2021-01-20] VITALS (19 sets, daily range): BP systolic 153–182; BP diastolic 72–91; PULSE 55–75; RESP 18–20; TEMP 36.1–37.1; O2SAT 93–99; BMI 40.4
[2021-01-20] MEDS: ALPRAZolam (*CRX) 0.5 MG TABLET 1 MG PO ×2 (00:29→21:20)
[2021-01-20] MEDS: ALBUTEROL SULFATE NEB 2.5 MG/0.5 ML INH 5 MG INHALATION ×4 (02:06→21:42)
[2021-01-20] MEDS: IPRATROPIUM BR 0.02% INH SOLN 0.5 MG/2.5 ML VIAL INHALATION ×4 (02:06→21:43)
[2021-01-20 05:33] LABS: Basophils Percent Auto 0.7 % (0.2-1.2); Eosinophils Percent Auto 0.2 % (0-4.4); Hematocrit 40.4 % (37.0-47.0); Hemoglobin 13.9 g/dL (12.0-15.0); Immature Granulocyte Absolute 0.06 K/mm3 (0.00-0.031); Immature Granulocyte Percent A 1.4 % (0-0.5); Lymphocytes Absolute Auto 0.83 K/mm3 (0.9-3.2); Lymphocytes Percent Auto 19.1 % (18.3-44.2); Mean Corpuscular HGB Conc 34.4 g/dl (32-36); Mean Corpuscular Hemoglobin 29.6 pg (26-34); Mean Platelet Volume 10.3 fl (7.4-10.4); Monocytes Absolute Auto 0.1 K/mm3 (0.1-0.6); Monocytes Percent Auto 2.3 % (2.6-8.5); Neutrophils Absolute Auto 3.3 K/mm3 (1.3-6.7); Neutrophils Percent Auto 76.3 % (45.5-73.1); Platelet Count Result 151 k/mm3 (150-375); Red Cell Distribution Width 13.1 % (11.5-14.5); White Blood Count 4.4 K/mm3 (4.5-10.0)
[2021-01-20 05:47] LABS: Anion Gap 9 mmol/L (8-16); Blood Urea Nitrogen 14 mg/dL (7-17); Carbon Dioxide 28 mmol/L (22-30); Chloride 102 mmol/L (98-107); Estimated CRCL calculation 90 ml/min; Estimated Glomerular Filt Rate > 60; Glucose 345 mg/dL (65-105); Sodium 139 mmol/L (137-145)
[2021-01-20 07:42] LABS: Glucose Point of Care 336 mg/dl (65-105)
[2021-01-20] MEDS: INSULIN ASPART (*BKC) 100 UNITS/ML SUB-Q ×3 (07:43→21:17)
[2021-01-20] MEDS: methylPREDNISolone SOD SUCC 40 MG VIAL IV PUSH ×2 (07:52→20:28)
[2021-01-20] MEDS: PANTOPRAZOLE SODIUM IV 40 MG VIAL IV PUSH (07:54)
[2021-01-20] MEDS: FAMOTIDINE 20 MG/2 ML VIAL IV PUSH (08:01)
[2021-01-20] MEDS: ASPIRIN 81 MG CHEWABLE TABLET PO (08:03)
[2021-01-20] MEDS: carvediloL 12.5 MG TABLET PO ×2 (08:03→17:23)
[2021-01-20] MEDS: lisinopriL 20 MG TABLET PO (08:03)
[2021-01-20] MEDS: AZITHROMYCIN 250 MG TABLET PO (08:04)
[2021-01-20] MEDS: FUROSEMIDE 40 MG TABLET PO (08:04)
--- NOTE | 2021-01-20 10:41 | PM.IMPN ---
Progress Note: A&P Assessment and Plan (1) Hypoxia: Code(s): R09.02 - Hypoxemia Status: Acute Assessment and Plan: Noted to be hypoxic down to 84%. Likely secondary to COPD exacerbation. She is requiring 2 L per nasal cannula Continue supplemental oxygen with goal saturation 90% or above. Wean to goal. She will benefit from home oxygen trial prior to discharge (2) COPD exacerbation: Code(s): J44.1 - Chronic obstructive pulmonary disease with (acute) exacerbation Status: Acute Assessment and Plan: Wheezing noted upon presentation and she is requiring 2 L supplemental O2. Wheezing improved today. CTA of the chest negative for acute pathology Initially refused IV steroids, later agreeable. IV Solu-Medrol started on 01/19. Continue azithromycin for inflammatory affect and COPD exacerbation Scheduled nebulized breathing treatments q6h Supplemental O2 available as needed with goal saturation 90% or above. Wean to goal. Consider pulmonology consult if patient worsens at the staff (3) Fall: Code(s): W19.XXXA - Unspecified fall, initial encounter Status: Acute Assessment and Plan: She had a mechanical fall at home on 01/17/2021 with some dizziness. She fell and landed on her knees and buttocks. She did not hit her head. Bilateral knee x-rays were normal. Fall precautions Could be due to hypoxia will need home oxygen evaluation closer to discharge Appreciate PT/OT eval (4) Diabetes: Code(s): E11.9 - Type 2 diabetes mellitus without complications Status: Chronic Assessment and Plan: A1c is 9.2. Blood sugars are elevated above target, worsened with IV steroids. She has an insulin pump but requires the assistance of her daughter to function it and would prefer to not use it during her hospitalization. She is not able to tell me her daily insulin requirement. Continue Accu-Cheks, sliding scale insulin, hypoglycemic protocol Continue scheduled novolog 5 units with meals Iincreased Lantus to 35 units Lantus qHS. Monitor blood sugars and adjust regimen as needed. Insulin pump discontinued. Monitor glucose trends closely, especially while on IV steroids (5) Hypertension: Qualifiers: Hypertension type: unspecified Qualified Code(s): I10 - Essential (primary) hypertension Code(s): I10 - Essential (primary) hypertension Status: Chronic Assessment and Plan: Blood pressure reviewed and has been running high. Improved today. Last BP 172/80 Continue lisinopril and carvedilol Monitor blood pressure trends and adjust medications (6) CHF (congestive heart failure), NYHA class I: Code(s): I50.9 - Heart failure, unspecified Status: Chronic Assessment and Plan: Reports she has not taken her Lasix in some time because she ran out of her prescription. Overall appears euvolemic. Continue Lasix 40 mg daily Monitor intake and output. Weigh daily. Heart healthy diet (7) UTI (urinary tract infection): Qualifiers: Hematuria presence: without hematuria Urinary tract infection type: acute cystitis Qualified Code(s): N30.00 - Acute cystitis without hematuria Code(s): N39.0 - Urinary tract infection, site not specified Status: Acute Assessment and Plan: Ruled out. UA abnormal at presentation but no symptoms and urine culture is negative. IV Rocephin discontinued on 01/19. Subjective Date/time seen: 01/20/21 10:41 Interval history: Date of service: 01/18/2021 Marilynn Pinon is a 65-year-old female with history of CHF, COPD, diabetes mellitus, hypertension, history of CVA who is seen in follow-up for COPD exacerbation. She is feeling much better. She wants to go home as soon as possible. I told her I did not feel comfortable to send her home today and she said that she will be going home tomorrow no matter how she is doing. She reports she
[2021-01-20 12:31] LABS: Glucose Point of Care 421 mg/dl (65-105)
[2021-01-20] MEDS: INSULIN ASPART (*BKC) 100 UNITS/ML 13 UNITS SUB-Q (12:47)
[2021-01-20 14:40] LABS: Glucose Point of Care 354 mg/dl (65-105)
[2021-01-20] MEDS: INSULIN ASPART (*BKC) 100 UNITS/ML 8 UNITS SUB-Q (15:00)
[2021-01-20] MEDS: EZETIMIBE 10 MG TABLET PO (17:23)
[2021-01-20] MEDS: INSULIN ASPART (*BKC) 100 UNITS/ML 15 UNITS SUB-Q (17:35)
[2021-01-20 17:54] LABS: Glucose Point of Care 421 mg/dl (65-105)
[2021-01-20] MEDS: MONTELUKAST SODIUM 10 MG TABLET PO (20:28)
[2021-01-20] MEDS: INSULIN GLARGINE (*BKC) 100 UNITS/ML 35 UNITS SUB-Q (20:31)
[2021-01-20 22:06] LABS: Glucose Point of Care 372 mg/dl (65-105)
[2021-01-21] VITALS (16 sets, daily range): BP systolic 154–177; BP diastolic 62–87; PULSE 55–69; RESP 16–20; TEMP 36.1–36.5; O2SAT 91–100
[2021-01-21] MEDS: ALBUTEROL SULFATE NEB 2.5 MG/0.5 ML INH 5 MG INHALATION ×4 (02:05→20:15)
[2021-01-21] MEDS: IPRATROPIUM BR 0.02% INH SOLN 0.5 MG/2.5 ML VIAL INHALATION ×4 (02:05→20:15)
[2021-01-21 05:39] LABS: Hematocrit 40.7 % (37.0-47.0); Hemoglobin 13.7 g/dL (12.0-15.0); Mean Corpuscular HGB Conc 33.7 g/dl (32-36); Mean Corpuscular Hemoglobin 29.7 pg (26-34); Mean Corpuscular Volume 88.1 fl (80-100); Mean Platelet Volume 10.5 fl (7.4-10.4); Platelet Count Result 185 k/mm3 (150-375); Red Blood Count 4.62 M/mm3 (4.2-5.4); Red Cell Distribution Width 13.3 % (11.5-14.5); White Blood Count 7.3 K/mm3 (4.5-10.0)
[2021-01-21 05:49] LABS: Anion Gap 6 mmol/L (8-16); Blood Urea Nitrogen 19 mg/dL (7-17); Calcium 9.1 mg/dL (8.4-10.2); Carbon Dioxide 33 mmol/L (22-30); Chloride 100 mmol/L (98-107); Estimated CRCL calculation 78 ml/min; Estimated Glomerular Filt Rate > 60; Glucose 342 mg/dL (65-105); Potassium 3.9 mmol/L (3.4-5.0); Sodium 139 mmol/L (137-145)
[2021-01-21 08:08] LABS: Glucose Point of Care 360 mg/dl (65-105)
[2021-01-21] MEDS: INSULIN ASPART (*BKC) 100 UNITS/ML 9 UNITS SUB-Q ×3 (08:32→17:09)
[2021-01-21] MEDS: INSULIN ASPART (*BKC) 100 UNITS/ML SUB-Q ×3 (08:32→17:09)
[2021-01-21] MEDS: lisinopriL 20 MG TABLET PO (08:38)
[2021-01-21] MEDS: ASPIRIN 81 MG CHEWABLE TABLET PO (08:38)
[2021-01-21] MEDS: methylPREDNISolone SOD SUCC 40 MG VIAL IV PUSH ×2 (08:38→20:39)
[2021-01-21] MEDS: PANTOPRAZOLE SODIUM IV 40 MG VIAL IV PUSH (08:38)
[2021-01-21] MEDS: carvediloL 12.5 MG TABLET PO ×2 (08:38→17:15)
[2021-01-21] MEDS: AZITHROMYCIN 250 MG TABLET PO (08:38)
[2021-01-21] MEDS: FUROSEMIDE 40 MG TABLET PO (08:38)
[2021-01-21 11:54] LABS: Glucose Point of Care 364 mg/dl (65-105)
[2021-01-21] MEDS: ALPRAZolam (*CRX) 0.5 MG TABLET 1 MG PO ×2 (15:03→22:53)
--- NOTE | 2021-01-21 15:29 | P.PNIM_ITS ---
Progress Note: A&P Assessment and Plan (1) Hypoxia: Code(s): R09.02 - Hypoxemia Status: Acute Assessment and Plan: Noted to be hypoxic down to 84% and required up to 2 L supplemental O2. Ssecondary to COPD exacerbation. She is currently maintaining adequate oxygenation on room air. * Continue supplemental oxygen as needed with goal saturation 90% or above. Wean to goal. * Home oxygen trial performed. She will need 2 L of oxygen with activity. O2 tank has been provided (2) COPD exacerbation: Code(s): J44.1 - Chronic obstructive pulmonary disease with (acute) exacerbation Status: Acute Assessment and Plan: Wheezing noted upon presentation with increased O2 requirements. CTA of the chest negative for acute pathology * Initially refused IV steroids, later agreeable. IV Solu-Medrol started on 01/19. * Continue azithromycin for inflammatory affect and COPD exacerbation * Scheduled nebulized breathing treatments q6h * Supplemental O2 available as needed with goal saturation 90% or above. Wean to goal. * Consider pulmonology consult if patient worsens (3) Fall: Code(s): W19.XXXA - Unspecified fall, initial encounter Status: Acute Assessment and Plan: She had a mechanical fall at home on 01/17/2021 with some dizziness; may have been due to hypoxia. She fell and landed on her knees and buttocks. She did not hit her head. Bilateral knee x-rays were normal. * Fall precautions * Appreciate PT/OT eval (4) Diabetes: Code(s): E11.9 - Type 2 diabetes mellitus without complications Status: Chronic Assessment and Plan: A1c is 9.2. Blood sugars are elevated above target, worsened with IV steroids. She has an insulin pump but requires the assistance of her daughter to function it and would prefer to not use it during her hospitalization. She is not able to tell me her daily insulin requirement. * Continue Accu-Cheks, sliding scale insulin, hypoglycemic protocol * Continue scheduled novolog 9 units with meals * Iincreased Lantus to 40 units qHS. Monitor blood sugars and adjust regimen as needed. * Insulin pump discontinued. * Monitor glucose trends closely, especially while on IV steroids * She was seen by [employer] chemical educator on 01/20 (5) Hypertension: Qualifiers: Hypertension type: unspecified Qualified Code(s): I10 - Essential (primary) hypertension Code(s): I10 - Essential (primary) hypertension Status: Chronic Assessment and Plan: Blood pressure reviewed and has been running high. Improved today. Last BP 155/70 * Continue lisinopril and carvedilol * Monitor blood pressure trends and adjust medications (6) CHF (congestive heart failure), NYHA class I: Code(s): I50.9 - Heart failure, unspecified Status: Chronic Assessment and Plan: Reports she has not taken her Lasix in some time because she ran out of her prescription. Overall appears euvolemic. * Continue Lasix 40 mg daily * Monitor intake and output. Weigh daily. * Heart healthy diet (7) UTI (urinary tract infection): Qualifiers: Hematuria presence: without hematuria Urinary tract infection type: acute cystitis Qualified Code(s): N30.00 - Acute cystitis without hematuria Code(s): N39.0 - Urinary tract infection, site not specified Status: Acute Assessment and Plan: Ruled out. UA abnormal at presentation but no symptoms and urine culture is negative. IV Rocephin discontinued on 01/19.
--- NOTE | 2021-01-21 15:29 | PM.IMPN ---
Progress Note: A&P Assessment and Plan (1) Hypoxia: Code(s): R09.02 - Hypoxemia Status: Acute Assessment and Plan: Noted to be hypoxic down to 84% and required up to 2 L supplemental O2. Ssecondary to COPD exacerbation. She is currently maintaining adequate oxygenation on room air. Continue supplemental oxygen as needed with goal saturation 90% or above. Wean to goal. Home oxygen trial performed. She will need 2 L of oxygen with activity. O2 tank has been provided (2) COPD exacerbation: Code(s): J44.1 - Chronic obstructive pulmonary disease with (acute) exacerbation Status: Acute Assessment and Plan: Wheezing noted upon presentation with increased O2 requirements. CTA of the chest negative for acute pathology Initially refused IV steroids, later agreeable. IV Solu-Medrol started on 01/19. Continue azithromycin for inflammatory affect and COPD exacerbation Scheduled nebulized breathing treatments q6h Supplemental O2 available as needed with goal saturation 90% or above. Wean to goal. Consider pulmonology consult if patient worsens (3) Fall: Code(s): W19.XXXA - Unspecified fall, initial encounter Status: Acute Assessment and Plan: She had a mechanical fall at home on 01/17/2021 with some dizziness; may have been due to hypoxia. She fell and landed on her knees and buttocks. She did not hit her head. Bilateral knee x-rays were normal. Fall precautions Appreciate PT/OT eval (4) Diabetes: Code(s): E11.9 - Type 2 diabetes mellitus without complications Status: Chronic Assessment and Plan: A1c is 9.2. Blood sugars are elevated above target, worsened with IV steroids. She has an insulin pump but requires the assistance of her daughter to function it and would prefer to not use it during her hospitalization. She is not able to tell me her daily insulin requirement. Continue Accu-Cheks, sliding scale insulin, hypoglycemic protocol Continue scheduled novolog 9 units with meals Iincreased Lantus to 40 units qHS. Monitor blood sugars and adjust regimen as needed. Insulin pump discontinued. Monitor glucose trends closely, especially while on IV steroids She was seen by [employer] clin tech on 01/20 (5) Hypertension: Qualifiers: Hypertension type: unspecified Qualified Code(s): I10 - Essential (primary) hypertension Code(s): I10 - Essential (primary) hypertension Status: Chronic Assessment and Plan: Blood pressure reviewed and has been running high. Improved today. Last BP 155/70 Continue lisinopril and carvedilol Monitor blood pressure trends and adjust medications (6) CHF (congestive heart failure), NYHA class I: Code(s): I50.9 - Heart failure, unspecified Status: Chronic Assessment and Plan: Reports she has not taken her Lasix in some time because she ran out of her prescription. Overall appears euvolemic. Continue Lasix 40 mg daily Monitor intake and output. Weigh daily. Heart healthy diet (7) UTI (urinary tract infection): Qualifiers: Hematuria presence: without hematuria Urinary tract infection type: acute cystitis Qualified Code(s): N30.00 - Acute cystitis without hematuria Code(s): N39.0 - Urinary tract infection, site not specified Status: Acute Assessment and Plan: Ruled out. UA abnormal at presentation but no symptoms and urine culture is negative. IV Rocephin discontinued on 01/19. Subjective Date/time seen: 01/21/21 15:29 Interval history: Date of service: 01/21/2021 Marilynn Pinon is a 65-year-old female with history of CHF, COPD, diabetes mellitus, hypertension, history of CVA who is seen in follow-up for COPD exacerbation. She is doing better. She wants to go home. She does not feel like she needs to be hospitalized. I explained to her the need for continued IV medications. She wants to go home
[2021-01-21] MEDS: EZETIMIBE 10 MG TABLET PO (17:15)
[2021-01-21 17:26] LABS: Glucose Point of Care 397 mg/dl (65-105)
[2021-01-21] MEDS: MONTELUKAST SODIUM 10 MG TABLET PO (20:39)
[2021-01-21] MEDS: INSULIN ASPART (*BKC) 100 UNITS/ML 6 UNITS SUB-Q (20:50)
[2021-01-21] MEDS: INSULIN GLARGINE (*BKC) 100 UNITS/ML 40 UNITS SUB-Q (20:51)
[2021-01-21 22:21] LABS: Glucose Point of Care 401 mg/dl (65-105)
[2021-01-22] VITALS (12 sets, daily range): BP systolic 153–184; BP diastolic 52–74; PULSE 55–66; RESP 16–18; TEMP 35.9–36.3; O2SAT 90–97
[2021-01-22 00:49] LABS: Glucose Point of Care 287 mg/dl (65-105)
[2021-01-22] MEDS: IPRATROPIUM BR 0.02% INH SOLN 0.5 MG/2.5 ML VIAL INHALATION ×3 (02:38→14:18)
[2021-01-22] MEDS: ALBUTEROL SULFATE NEB 2.5 MG/0.5 ML INH 5 MG INHALATION ×3 (02:39→14:18)
[2021-01-22 05:40] LABS: Hematocrit 39.1 % (37.0-47.0); Hemoglobin 13.5 g/dL (12.0-15.0)
[2021-01-22 05:50] LABS: Anion Gap 6 mmol/L (8-16); Blood Urea Nitrogen 28 mg/dL (7-17); Calcium 8.8 mg/dL (8.4-10.2); Carbon Dioxide 30 mmol/L (22-30); Chloride 101 mmol/L (98-107); Estimated CRCL calculation 77 ml/min; Estimated Glomerular Filt Rate > 60; Glucose 331 mg/dL (65-105); Potassium 4.1 mmol/L (3.4-5.0); Sodium 137 mmol/L (137-145)
[2021-01-22] MEDS: INSULIN ASPART (*BKC) 100 UNITS/ML 15 UNITS SUB-Q ×2 (08:29→11:44)
[2021-01-22] MEDS: INSULIN ASPART (*BKC) 100 UNITS/ML SUB-Q ×2 (08:30→11:45)
[2021-01-22 08:35] LABS: Glucose Point of Care 305 mg/dl (65-105)
[2021-01-22] MEDS: ASPIRIN 81 MG CHEWABLE TABLET PO (08:38)
[2021-01-22] MEDS: methylPREDNISolone SOD SUCC 40 MG VIAL IV PUSH (08:39)
[2021-01-22] MEDS: AZITHROMYCIN 250 MG TABLET PO (08:39)
[2021-01-22] MEDS: carvediloL 12.5 MG TABLET PO (08:39)
[2021-01-22] MEDS: lisinopriL 20 MG TABLET PO (08:39)
[2021-01-22] MEDS: FUROSEMIDE 40 MG TABLET PO (08:39)
[2021-01-22] MEDS: PANTOPRAZOLE 40 MG TABLET PO (08:40)
[2021-01-22 12:32] LABS: Glucose Point of Care 389 mg/dl (65-105)
--- NOTE | 2021-01-22 12:46 | PM.DS ---
DS: Admitting Diagnosis Admitting Diagnosis Admitting Diagnosis: COPD exacerbation UTI Hyperglycemia DS: Discharge Diagnosis Discharge Diagnosis (1) Hypoxia: Code(s): R09.02 - Hypoxemia Status: Acute Assessment and Plan: Noted to be hypoxic down to 84% and required up to 2 L supplemental O2. Ssecondary to COPD exacerbation. She is currently maintaining adequate oxygenation on room air. Continue supplemental oxygen as needed with goal saturation 90% or above. Wean to goal. Home oxygen trial performed. She will need 2 L of oxygen with activity. O2 tank has been provided (2) COPD exacerbation: Code(s): J44.1 - Chronic obstructive pulmonary disease with (acute) exacerbation Status: Acute Assessment and Plan: Wheezing noted upon presentation with increased O2 requirements. CTA of the chest negative for acute pathology Initially refused IV steroids, later agreeable. IV Solu-Medrol started on 01/19. Continue azithromycin for inflammatory affect and COPD exacerbation Scheduled nebulized breathing treatments q6h Supplemental O2 available as needed with goal saturation 90% or above. Wean to goal. Consider pulmonology consult if patient worsens (3) Fall: Code(s): W19.XXXA - Unspecified fall, initial encounter Status: Acute Assessment and Plan: She had a mechanical fall at home on 01/17/2021 with some dizziness; may have been due to hypoxia. She fell and landed on her knees and buttocks. She did not hit her head. Bilateral knee x-rays were normal. Fall precautions Appreciate PT/OT eval (4) Diabetes: Code(s): E11.9 - Type 2 diabetes mellitus without complications Status: Chronic Assessment and Plan: A1c is 9.2. Blood sugars are elevated above target, worsened with IV steroids. She has an insulin pump but requires the assistance of her daughter to function it and would prefer to not use it during her hospitalization. She is not able to tell me her daily insulin requirement. Continue Accu-Cheks, sliding scale insulin, hypoglycemic protocol Continue scheduled novolog 9 units with meals Iincreased Lantus to 40 units qHS. Monitor blood sugars and adjust regimen as needed. Insulin pump discontinued. Monitor glucose trends closely, especially while on IV steroids She was seen by [employer] simulation educator on 01/20 (5) Hypertension: Qualifiers: Hypertension type: unspecified Qualified Code(s): I10 - Essential (primary) hypertension Code(s): I10 - Essential (primary) hypertension Status: Chronic Assessment and Plan: Blood pressure reviewed and has been running high. Improved today. Last BP 155/70 Continue lisinopril and carvedilol Monitor blood pressure trends and adjust medications (6) CHF (congestive heart failure), NYHA class I: Code(s): I50.9 - Heart failure, unspecified Status: Chronic Assessment and Plan: Reports she has not taken her Lasix in some time because she ran out of her prescription. Overall appears euvolemic. Continue Lasix 40 mg daily Monitor intake and output. Weigh daily. Heart healthy diet (7) UTI (urinary tract infection): Qualifiers: Hematuria presence: without hematuria Urinary tract infection type: acute cystitis Qualified Code(s): N30.00 - Acute cystitis without hematuria Code(s): N39.0 - Urinary tract infection, site not specified Status: Acute Assessment and Plan: Ruled out. UA abnormal at presentation but no symptoms and urine culture is negative. IV Rocephin discontinued on 01/19. DS: Summary Hospital Course Hospital Course: Patient is a 65 year old female with a past medical history of CHF, COPD, DM, and CVA that presented to the ED after a fall. Patient was going from her living room to the bathroom when her legs gave out and she fell to the floor. She did come to the hospital and has been
--- NOTE | 2021-01-22 12:46 | P.DS_ITS ---
DS: Admitting Diagnosis Admitting Diagnosis Admitting Diagnosis: COPD exacerbation UTI Hyperglycemia DS: Discharge Diagnosis Discharge Diagnosis (1) Hypoxia: Code(s): R09.02 - Hypoxemia Status: Acute Assessment and Plan: Noted to be hypoxic down to 84% and required up to 2 L supplemental O2. Ssecondary to COPD exacerbation. She is currently maintaining adequate oxygenation on room air. * Continue supplemental oxygen as needed with goal saturation 90% or above. Wean to goal. * Home oxygen trial performed. She will need 2 L of oxygen with activity. O2 tank has been provided (2) COPD exacerbation: Code(s): J44.1 - Chronic obstructive pulmonary disease with (acute) exacerbation Status: Acute Assessment and Plan: Wheezing noted upon presentation with increased O2 requirements. CTA of the chest negative for acute pathology * Initially refused IV steroids, later agreeable. IV Solu-Medrol started on 01/19. * Continue azithromycin for inflammatory affect and COPD exacerbation * Scheduled nebulized breathing treatments q6h * Supplemental O2 available as needed with goal saturation 90% or above. Wean to goal. * Consider pulmonology consult if patient worsens (3) Fall: Code(s): W19.XXXA - Unspecified fall, initial encounter Status: Acute Assessment and Plan: She had a mechanical fall at home on 01/17/2021 with some dizziness; may have been due to hypoxia. She fell and landed on her knees and buttocks. She did not hit her head. Bilateral knee x-rays were normal. * Fall precautions * Appreciate PT/OT eval (4) Diabetes: Code(s): E11.9 - Type 2 diabetes mellitus without complications Status: Chronic Assessment and Plan: A1c is 9.2. Blood sugars are elevated above target, worsened with IV steroids. She has an insulin pump but requires the assistance of her daughter to function it and would prefer to not use it during her hospitalization. She is not able to tell me her daily insulin requirement. * Continue Accu-Cheks, sliding scale insulin, hypoglycemic protocol * Continue scheduled novolog 9 units with meals * Iincreased Lantus to 40 units qHS. Monitor blood sugars and adjust regimen as needed. * Insulin pump discontinued. * Monitor glucose trends closely, especially while on IV steroids * She was seen by [employer]ue peer educator on 01/20 (5) Hypertension: Qualifiers: Hypertension type: unspecified Qualified Code(s): I10 - Essential (primary) hypertension Code(s): I10 - Essential (primary) hypertension Status: Chronic Assessment and Plan: Blood pressure reviewed and has been running high. Improved today. Last BP 155/70 * Continue lisinopril and carvedilol * Monitor blood pressure trends and adjust medications (6) CHF (congestive heart failure), NYHA class I: Code(s): I50.9 - Heart failure, unspecified Status: Chronic Assessment and Plan: Reports she has not taken her Lasix in some time because she ran out of her prescription. Overall appears euvolemic. * Continue Lasix 40 mg daily * Monitor intake and output. Weigh daily. * Heart healthy diet (7) UTI (urinary tract infection): Qualifiers: Hematuria presence: without hematuria Urinary tract infection type: ac zachariah cystitis Qualified Code(s): N30.00 - Acute cystitis without hematuria Code(s): N39.0 - Urinary tract infection, site not specified Status: Acute Assessment and Plan:
[2021-01-22] MEDS: ALPRAZolam (*CRX) 0.5 MG TABLET 1 MG PO (13:12)
--- NOTE | 2021-01-22 14:28 | HOMEO2EVAL ---
Evaluation was performed at [facility] Home Oxygen Evaluation RC: Home Oxygen (O2) Evaluation Start: 01/22/21 12:09 Freq: ONCE Status: Active Protocol: RPE Activity Type Activity Date Activity User E-Sign Co-Sign Detail Recorded Client Recorded Date Recorded By Document 01/22/21 13:00 DJO [email or web address] 01/22/21 14:28 DJO Document 01/22/21 13:05 DJO [email or web address] 01/22/21 14:28 DJO Document 01/22/21 13:15 [email or web address] [email or web address] 01/22/21 14:28 DJO 01/22/21 01/22/21 01/22/21 13:00 13:05 13:15 Home O2 Evaluation Test Phase Resting Exercise Resting Oxygen Delivery Room Air Room Air Room Air Pulse Oximetry (90-100 %) 94 90 95 Home Oxygen Evaluation Comments NO HOME O2 NEEDED AT THIS TIME. Treatment Charges O2 Evaluation - Inpatient
--- NOTE | 2021-01-22 14:28 | PCRCNOTE ---
HOME O2 EVAL REPEATED. THIS TIME PT DOES NOT REQUIRE HOME O2. [facility] HAD ALREADY SET UP O2 IN THE PATIENTS HOME, EVAL WAS COMPLETED TOO EARLY. I WILL CONTACT [facility] TO RETRIEVE O2 FROM HOME.
== END 2021-01-22 15:30 | disposition home or self-care (01) | DRG 192 ==
LOC: ANHED 09:47 → ANH2MED 10:06
PROVIDERS: Emergency Medicine; Nurse Practitioner; Physician Assistant; Admitting Provider Family Medicine; Emergency Provider Family Medicine; PCP Internal Medicine; Visit Provider Physician Assistant
DX: J44.1 Chronic obstructive pulmonary disease with (acute) exacerbation (principal); F17.210 Nicotine dependence, cigarettes, uncomplicated; I11.0 Hypertensive heart disease with heart failure; I50.9 Heart failure, unspecified; E11.65 Type 2 diabetes mellitus with hyperglycemia; R42 Dizziness and giddiness; R53.1 Weakness; R09.02 Hypoxemia; R82.90 Unspecified abnormal findings in urine; F41.9 Anxiety disorder, unspecified; W19.XXXA Unspecified fall, initial encounter; Z96.41 Presence of insulin pump (external) (internal); Z79.4 Long term (current) use of insulin; Z79.899 Other long term (current) drug therapy; Z86.73 Personal history of transient ischemic attack (TIA), and cerebral infarction without residual deficits
CPT/HCPCS: 36415; 51701; 71045; 71275; 73560; 80048; 80053; 81001; 82948; 83036; 83605; 83690; 83735; 84443; 85014; 85018; 85025; 85027; 85055; 87040; 87070; 87086; 87205; 94618; 94640; 96361; 96365; 96366; 96375; 96376; 97110; 97161; 97165; 97530; 97535; 99285; A9270; C9113; G0378; J0696; J1815; J1940; J2405; J2920; J7030; Q9967

== ENCOUNTER 2021-08-18 13:51 | Emergency (ER) | payer MEDICARE, SELFPAY ==
[2021-08-18 14:12] VITALS: BP 151/66; PULSE 69; RESP 18; TEMP 37.1; O2SAT 96
--- NOTE | 2021-08-18 14:26 | ED.GENADULT ---
HPI - General Adult General Chief complaint: Ear Stated complaint: Ear pain/covid exposure Time Seen by Provider: 08/18/21 14:01 Source: patient Mode of arrival: ambulatory Limitations: no limitations History of Present Illness HPI narrative: 66-year-old female presented for complaint of headache, body aches, sinus pressure/congestion, bilateral ear pain, denies chest pain, shortness of breath, cough, fever/chills. Endorses she had a positive home COVID test last week. Related Data Home Medications Medication Instructions Recorded Confirmed alprazolam 1 mg PO BID PRN 01/14/21 01/17/21 aspirin 81 mg PO DAILY 01/14/21 01/17/21 carvedilol 12.5 mg PO BID 01/14/21 01/17/21 ezetimibe 10 mg PO QPM 01/14/21 01/17/21 lisinopril 20 mg PO DAILY 01/14/21 01/17/21 furosemide 08/18/21 08/18/21 insulin lispro [Humalog U-100 08/18/21 Insulin] Allergies Allergy/AdvReac Type Severity Reaction Status Date / Time codeine Allergy Unknown Nausea and Verified 08/18/21 14:03 Vomiting sulfamethoxazole Allergy Nausea and Verified 08/18/21 14:03 [From Bactrim] Vomiting trimethoprim [From Bactrim] Allergy Nausea and Verified 08/18/21 14:03 Vomiting Review of Systems Review of Systems: CONSTITUTIONAL: Endorses malaise, denies chills, sweats, fever. EYES: Denies visual changes, redness, or discharge. ENT: Reports rhinorrhea, congestion, sinus pain, otalgia and sore throat. CARDIOVASCULAR: Denies chest pain, palpitations, or edema. RESPIRATORY: Reports cough, post nasal drainage. Denies dyspnea. GASTROINTESTINAL: Denies abdominal pain, nausea, vomiting, diarrhea SKIN: Denies rash or itching. MUSCULOSKELETAL: Endorses myalgia. NEUROLOGIC: Denies headache. [facility] Past Medical History Medical History Anxiety CHF (congestive heart failure), NYHA class I COPD (chronic obstructive pulmonary disease) Diabetes History of CVA (cerebrovascular accident) Hypertension Surgical History Surgical History History of cholecystectomy History of hysterectomy History of tonsillectomy Family History Family History Father Diabetes mellitus Mother Diabetes mellitus Sibling Diabetes mellitus Social History Social History Social History: The patient is and lives home alone. She has 2 children. Her daughter is a durable power estate attorney for healthcare. The patient desires to be a full code. The patient continues to smoke 10 cigarettes a day. The patient is on disability. She denies any alcohol, marijuana, or illicit drug. Years smoked: 51 Smoking status: Light tobacco smoker Tobacco type: cigarettes Second hand tobacco smoke exposure: No Alcohol intake: former Substance use: never Gender identity (if verbalized by the patient): Female Spiritual care concerns: No Exam Narrative: GENERAL: Ill-appearing, nontoxic no acute distress. HEAD: Normocephalic EYES: PERRLA, conjunctivae clear ENT: Mucous membranes moist. TM pearly rosen with dull light reflex bilaterally; no tragal tenderness. Oropharynx erythematous without lesions, no drooling, no hoarseness, no trismus, uvula midline. NECK: Supple. No lymphadenopathy CHEST: Clear to auscultation, breath sounds equal. No wheezing, rhonchi, rales, or stridor. No respiratory distress, speaks in full sentences. HEART: Regular rate and rhythm. No murmur heard. SKIN: Warm, dry, no rash. NEURO: Alert and oriented x3. PSYCH: Normal mood and affect Course Course Emergency Course: pt sustained left forearm skin tear from the door approx 1cm diameter, applied ALBINA and bandaid. Pt is requesting COVID test so she 'can be around her family' however pt is informed that she had a positive test at home last week and it is not indicated to retest
== END 2021-08-18 14:37 | disposition left against medical advice (07) ==
PROVIDERS: Emergency Provider Nurse Practitioner Family; PCP Internal Medicine
DX: H92.02 Otalgia, left ear (principal); B34.9 Viral infection, unspecified; I11.0 Hypertensive heart disease with heart failure; I50.9 Heart failure, unspecified; J44.9 Chronic obstructive pulmonary disease, unspecified; Z86.73 Personal history of transient ischemic attack (TIA), and cerebral infarction without residual deficits; E11.9 Type 2 diabetes mellitus without complications; F41.9 Anxiety disorder, unspecified; F17.210 Nicotine dependence, cigarettes, uncomplicated; Z86.16 Personal history of COVID-19
CPT/HCPCS: 99211; G0463

== ENCOUNTER 2023-02-27 10:12 | Inpatient (IN) | payer MEDICARE, MEDICAID, SELFPAY ==
[2023-02-27] VITALS (26 sets, daily range): BP systolic 139–201; BP diastolic 47–87; PULSE 60–72; RESP 17–24; TEMP 36.4–36.6; O2SAT 87–97; BMI 42.1
--- NOTE | ~2023-02-27 | XR_ITS ---
XR chest 2V DATE: 02/27/2023 10:52 INDICATION: Shortness of breath. Edema. TECHNIQUE: AP and lateral views COMPARISON: 01/19/2021 CT pulmonary scan 01/17/2021 portable AP chest FINDINGS: Cardiomegaly. Minimal aortic unfolding. There is a moderate device overlying the lower medial left chest. No hilar or mediastinal enlargement. No pulmonary infiltrate or consolidation, pleural effusion or pulmonary vascular congestion or pneumo thorax. Diffuse idiopathic skeletal hyperostosis of the thoracic spine. Status post cholecystectomy. IMPRESSION: Cardiomegaly No active pulmonary disease Reviewed, dictated and finalized at location A.
--- NOTE | ~2023-02-27 | XR_ITS ---
Clinical Indication: CHF AP and lateral views of the chest: Comparison: 02/27/2023 Findings: The lungs are clear, without evidence of focal consolidation or pleural effusion. Cardiome diastinal silhouette is within normal limits. Stable loop recorder present. Bones and soft tissues ar e unremarkable. Impression: Clear lungs. Reviewed, dictated and finalized at location . Impression: Clear lungs.
--- NOTE | ~2023-02-27 | US_ITS ---
EXAMINATION: US venous doppler [facility] DATE: 02/28/2023 08:43 INDICATION: Lower limb edema. TECHNIQUE: Grayscale ultrasound images without and with compression and Doppler ultrasound images of the bilateral lower extremity veins were obtained. COMPARISON: None. FINDINGS: The visualized portions of right common femoral vein, profunda (deep) femoral vein, femoral vein, pop liteal vein, peroneal veins, posterior tibial veins, and greater saphenous vein outflow are patent. The visualized portions of left common femoral vein, profunda femoral vein, femoral vein, popliteal v ein, and greater saphenous vein outflow are patent. The calf veins are not well visualized. IMPRESSION: 1. No deep venous thrombosis. Reviewed, dictated and finalized at location A.
--- NOTE | 2023-02-27 10:20 | ECG_ITS ---
Measurements Intervals [place] Rate: 68 P: 31 CO: 240 QRS: 56 QRSD: 103 T: 48 QT: 398 QTc: 424 Interpretive Statements SINUS RHYTHM WITH FIRST DEGREE AV BLOCK BORDERLINE ST-T WAVE ABNORMALITY- DIFFUSE LEADS BASELINE ARTIFACT- I, II, III, AVR, AVL, AVF, V1 BORDERLINE ECG COMPARED TO ECG 01/14/2021 11:04:24 ST-T WAVE ABNORMALITY NOW PRESENT Electronically Signed On 02-27-2023 23:57:21 CDT by Kennedy Dykes D.O.
[2023-02-27 11:03] LABS: Basophils Absolute Auto 0.1 K/mm3 (0.0-0.1); Basophils Percent Auto 0.7 % (0.2-1.2); Eosinophils Absolute Auto 0.3 K/mm3 (0-0.3); Eosinophils Percent Auto 3.8 % (0-4.4); Hematocrit 40.1 % (37.0-47.0); Hemoglobin 13.4 g/dL (12.0-15.0); Immature Granulocyte Absolute 0.02 K/mm3 (0.00-0.031); Immature Granulocyte Percent A 0.2 % (0-0.5); Lymphocytes Absolute Auto 3.04 K/mm3 (0.9-3.2); Mean Corpuscular HGB Conc 33.4 g/dl (32-36); Mean Corpuscular Hemoglobin 29.9 pg (26-34); Mean Corpuscular Volume 89.5 fl (80-100); Mean Platelet Volume 9.8 fl (7.4-10.4); Monocytes Absolute Auto 0.6 K/mm3 (0.1-0.6); Monocytes Percent Auto 7.4 % (2.6-8.5); Neutrophils Absolute Auto 4.2 K/mm3 (1.3-6.7); Neutrophils Percent Auto 50.9 % (45.5-73.1); Platelet Count Result 199 k/mm3 (150-375); Red Blood Count 4.48 M/mm3 (4.2-5.4); Red Cell Distribution Width 14.9 % (11.5-14.5); White Blood Count 8.2 K/mm3 (4.5-10.0)
[2023-02-27 11:16] LABS: Partial Thromboplastin Time 25.6 SECONDS (22.3-36.8); Prothrombin Time 13.7 Seconds (11.1-14.7)
[2023-02-27 11:27] LABS: NT Pro B Type Natriuretic Pept 221 pg/mL (19.9-100); Troponin I < 0.012 ng/mL (0.000-0.034)
[2023-02-27 11:35] LABS: Alanine Aminotransferase 18 U/L (6-35); Albumin Level 3.7 g/dL (3.5-5.1); Alkaline Phosphatase 34 U/L (38-126); Anion Gap 6 mmol/L (8-16); Aspartate Amino Transferase 17 U/L (14-36); Bilirubin,Total 0.4 mg/dL (0.2-1.3); Blood Urea Nitrogen 9 mg/dL (7-17); Calcium 8.6 mg/dL (8.4-10.2); Carbon Dioxide 31 mmol/L (22-30); Chloride 100 mmol/L (98-107); Estimated CRCL calculation 87 ml/min; Estimated Glomerular Filt Rate > 60; Glucose 282 mg/dL (65-110); Potassium 2.8 mmol/L (3.4-5.0); Sodium 137 mmol/L (137-145)
[2023-02-27] MEDS: POTASSIUM CHLORIDE 20 MEQ PACKET (FOR LIQUID) 40 MEQ PO (11:55)
[2023-02-27] MEDS: POTASSIUM CHLORIDE INJ 40 MEQ in SODIUM CHLORIDE 0.9% IV 500 ML 130 MEQ IVPB (11:55)
--- NOTE | 2023-02-27 12:34 | ED.EXTPRO ---
HPI - Extremity Problem General Chief complaint: Extremity Problem,Nontraumatic Stated complaint: swollen feet Time Seen by Provider: 02/27/23 10:24 History of Present Illness HPI Narrative: Patient states that over the last few days, she has noticed increased swelling to both legs, to the point where it is now past her knees, and she is having some difficulty breathing, initially worst with exertion and with laying flat but now also sometimes just at rest. She does have history of congestive heart failure for which she takes 80 mg of Lasix. Related Data Home Medications Medication Instructions Recorded Confirmed alprazolam 1 mg tablet 1 mg PO BID 01/14/21 09/03/22 carvedilol 12.5 mg tablet 12.5 mg PO BID 01/14/21 09/03/22 ezetimibe 10 mg tablet 10 mg PO DAILY 01/14/21 09/03/22 insulin lispro 100 unit/mL 11 unit subcut TID 08/18/21 09/03/22 subcutaneous solution (Humalog U-100 Insulin) albuterol sulfate 90 mcg/actuation 1 puff inhalation Q4H PRN 09/03/22 09/03/22 aerosol inhaler (Ventolin HFA) Shortness Of Breath amlodipine 10 mg tablet 10 mg PO DAILY 09/03/22 09/03/22 aspirin 81 mg tablet,delayed 81 mg PO DAILY 09/03/22 09/03/22 release furosemide 40 mg tablet 80 mg PO DAILY 09/03/22 09/03/22 hydralazine 25 mg tablet 25 mg PO TID 09/03/22 09/03/22 lisinopril 40 mg tablet 40 mg PO DAILY 09/03/22 09/03/22 metformin 500 mg tablet,extended 500 mg PO QHS 09/03/22 09/03/22 release 24 hr Allergies Allergy/AdvReac Type Severity Reaction Status Date / Time codeine AdvReac Unknown Nausea and Verified 02/27/23 11:38 Vomiting baclofen AdvReac Nausea and Verified 02/27/23 11:38 Vomiting sulfamethoxazole AdvReac Nausea and Verified 02/27/23 11:38 [From Bactrim] Vomiting trimethoprim [From Bactrim] AdvReac Nausea and Verified 02/27/23 11:38 Vomiting Review of Systems Review of Systems: CONST: No fever. HEENT: No sore throat C/V: No chest pain RESP: Shortness of breath GI: No abdominal pain : No dysuria. M/S: Bilateral lower extremity edema. SKIN: No rash. NEURO: [No headache or focal numbness or weakness] PSYCH: [No depression] [facility] Past Medical History Medical History Anxiety CHF (congestive heart failure), NYHA class I COPD (chronic obstructive pulmonary disease) Diabetes History of CVA (cerebrovascular accident) Hyperlipidemia Hypertension Stenosis of left internal carotid artery Surgical History Surgical History History of cholecystectomy History of hysterectomy History of tonsillectomy Family History Family History Father Diabetes mellitus Coronary artery disease Mother Diabetes mellitus Coronary artery disease Colon cancer Sibling Diabetes mellitus Social History Social History Social History: The patient is and lives home alone. She has 2 children. Her daughter is a durable power [place] attorney for healthcare. The patient desires to be a full code. The patient continues to smoke 10 cigarettes a day. The patient is on disability. She denies any alcohol, marijuana, or illicit drug. Smoking packs per day: 0.5 Smoking cigarettes per day: 10.0 Years smoked: 52 Smoking pack-years: 26.00 Smoking status: Former smoker Tobacco type: cigarettes Second hand tobacco smoke exposure: No Alcohol intake: former Substance use: never Gender identity (if verbalized by the patient): Female Spiritual care concerns: No Exam Narrative: EXAMINATION OF ORGAN SYSTEMS/BODY AREAS: Constitutional: Vital signs per nursing GENERAL:[No acute distress, non-toxic appearing.] HEAD: Normal with no signs of head trauma. EYES: EOMI, conjunctiva normal ENT: Hearing grossly intact LUNGS: Nonlabored breathing. HEART: [Re
[2023-02-27] MEDS: hydrALAZINE HCL 25 MG TABLET PO (14:55)
[2023-02-27] MEDS: carvediloL 12.5 MG TABLET PO (14:55)
[2023-02-27] MEDS: FUROSEMIDE INJ 100 MG/10 ML VIAL 80 MG IV PUSH (14:55)
[2023-02-27] MEDS: lisinopriL 20 MG TABLET 40 MG PO (14:56)
[2023-02-27] MEDS: amLODIPine BESYLATE 5 MG TABLET 10 MG PO (14:59)
--- NOTE | 2023-02-27 15:37 | PM.IMHP ---
H&P: HPI History of Present Illness Date/Time: 02/27/23 16:00 Chief Complaint: Leg swelling. Narrative: This is a 67-year-old female smoker with history of diastolic congestive heart failure, stroke, hyperlipidemia, carotid artery disease, insulin-dependent diabetes, and chronic obstructive pulmonary disease who presented to the emergency department for evaluation of leg swelling. The patient provides the following history. It is not unusual for her to have occasional swelling in her feet however the last several days she has had an increase in swelling which is now past her knees associated with pain and tightness in the legs. She is also felt more short of breath with activity and endorses mild orthopnea. She is on furosemide at home and reports compliance with that. She has a rescue inhaler which she has not been using. She denies fever, chills, sweats, chest pain, pleuritic pain, productive cough, racing heart, palpitations, cough, nausea, and vomiting. She she denies recent travel and has no history of venous thromboembolism. She was afebrile on arrival to the emergency department. Blood pressures have been as high as 201/87 though she admitted that she did not take her blood pressure medications yet this morning and she received those in the ED with improvement in her readings. Labs were significant for a normal white blood cell count, potassium 2.8, creatinine 0.60, glucose 282, proBNP 221. Chest x-ray showed cardiomegaly with no acute cardiopulmonary disease. She was given a dose of furosemide in the ED and is being admitted in this setting for further diuresis. At the time my evaluation she does not have any specific complaints. Review of Systems Review of Systems: Twelve systems were reviewed. No headache. No significant cold or flu symptoms. She denies sick contacts. No history of venous thromboembolism. No known history of sleep apnea though she does snore and has daytime somnolence on occasion. Except as documented, all other systems were reviewed and are negative. [facility] Past Medical History Medical History Anxiety Cerebrovascular accident Chronic obstructive pulmonary disease Diastolic congestive heart failure Hyperlipidemia Hypertension Insulin dependent diabetes mellitus Stenosis of left internal carotid artery Surgical History Surgical History History of cholecystectomy History of hysterectomy History of tonsillectomy Family History Family History Father Diabetes mellitus Coronary artery disease Mother Diabetes mellitus Coronary artery disease Colon cancer Sibling Diabetes mellitus Social History Social History (Updated 02/27/23 @ 23:41 by Dana Ashley PA-C) Social History: Surrogate medical decision maker: Ellen Tomlinson, sister. Code status: Full code. Smoking packs per day: 0.25 Smoking cigarettes per day: 5.0 Years smoked: 30 Smoking pack-years: 7.50 Smoking status: Current every day smoker Tobacco type: cigarettes Second hand tobacco smoke exposure: No Alcohol intake: former Substance use: never Lack of Transportation: No Lack of Food: Never True Current Housing: I Have Housing Concerned About Future Housing: No Difficulty Paying Gas/Electric Bills: No Difficulty Paying for Meds: No Currently Unemployed: No Education: Grade School Difficulty w/ Childcare or Family Care: No Additional living arrangements comments: . Lives alone. Has 2 children. Additional occupation/education comments: Disabled. Spiritual care concerns: No Meds Home Medications and Allergies Home Medications Medication Instructions Recorded Confirmed Type alprazolam 1 mg tablet 1 mg PO BID 01/14/21 02/27/23 History carvedilol 12.5 mg tablet 12.5 mg PO BID 01/14/21 02/27/23 History e
[2023-02-27 16:58] LABS: Glucose Point of Care 262 mg/dl (65-105)
--- NOTE | 2023-02-27 18:18 | ADMGEN ---
This patient, Marilynn Pinon, was admitted to [facility] Surg Room 332-01. Patient/family oriented to hospital policies and general routines including ID bracelet, bed and alarms, visiting hours, pain management, procedures, bathroom and other care routines, personal items, smoking policy, room service/diet, and visiting hours. Information on how to activate the Rapid Response Team has been discussed. Patient/Family are encouraged to report perceived risks to care and to ask questions if they do not understand what they are told or what they should do.
[2023-02-27 20:42] LABS: Anion Gap 4 mmol/L (8-16); Blood Urea Nitrogen 9 mg/dL (7-17); Calcium 8.3 mg/dL (8.4-10.2); Carbon Dioxide 35 mmol/L (22-30); Chloride 99 mmol/L (98-107); Estimated CRCL calculation 77 ml/min; Estimated Glomerular Filt Rate > 60; Glucose 308 mg/dL (65-110); Magnesium 1.9 mg/dL (1.6-2.3); Potassium 3.7 mmol/L (3.4-5.0); Sodium 138 mmol/L (137-145)
[2023-02-27 22:06] LABS: Glucose Point of Care 265 mg/dl (65-105)
[2023-02-28] VITALS (20 sets, daily range): BP systolic 143–150; BP diastolic 54–65; PULSE 53–80; RESP 16–20; TEMP 36.2–37.2; O2SAT 93–97
[2023-02-28] MEDS: carvediloL 12.5 MG TABLET PO ×3 (01:01→20:20)
[2023-02-28] MEDS: ALPRAZolam (*CRX) 0.5 MG TABLET 1 MG PO ×3 (01:01→18:03)
[2023-02-28] MEDS: INSULIN GLARGINE (*BKC) 100 UNITS/ML 36 UNITS SUB-Q ×2 (01:01→20:20)
[2023-02-28] MEDS: ALBUTEROL SULFATE NEB 2.5 MG/3 ML INH INHALATION ×4 (01:32→19:51)
[2023-02-28] MEDS: IPRATROPIUM BR 0.02% INH SOLN 0.5 MG/2.5 ML VIAL INHALATION ×4 (01:32→19:51)
--- NOTE | 2023-02-28 01:34 | PCRCNOTE ---
Apnea link not done this evening due to lack of boxes available. Apnea link to be done 02/28/23
[2023-02-28 07:30] LABS: Hematocrit 39.7 % (37.0-47.0); Mean Corpuscular HGB Conc 32.7 g/dl (32-36); Mean Corpuscular Hemoglobin 29.6 pg (26-34); Mean Corpuscular Volume 90.4 fl (80-100); Mean Platelet Volume 9.6 fl (7.4-10.4); Platelet Count Result 182 k/mm3 (150-375); Red Blood Count 4.39 M/mm3 (4.2-5.4); Red Cell Distribution Width 14.9 % (11.5-14.5); White Blood Count 7.5 K/mm3 (4.5-10.0)
[2023-02-28 07:39] LABS: Anion Gap 1 mmol/L (8-16); Blood Urea Nitrogen 10 mg/dL (7-17); Calcium 8.2 mg/dL (8.4-10.2); Carbon Dioxide 37 mmol/L (22-30); Chloride 99 mmol/L (98-107); Estimated CRCL calculation 90 ml/min; Estimated Glomerular Filt Rate > 60; Glucose 202 mg/dL (65-110); Potassium 3.5 mmol/L (3.4-5.0); Sodium 137 mmol/L (137-145)
[2023-02-28 08:33] LABS: Hemoglobin A1C 9.4 % (<5.7)
[2023-02-28 09:03] LABS: Thyroid Stimulating Hormone Reflex 0.504 uIU/mL (0.465-4.68)
[2023-02-28 09:08] LABS: Glucose Point of Care 180 mg/dl (65-105)
[2023-02-28] MEDS: INSULIN ASPART (*BKC) 100 UNITS/ML 11 UNITS SUB-Q ×3 (09:15→18:03)
[2023-02-28] MEDS: lisinopriL 20 MG TABLET 40 MG PO (09:17)
[2023-02-28] MEDS: CLOPIDOGREL BISULFATE 75 MG TABLET PO (09:17)
[2023-02-28] MEDS: amLODIPine BESYLATE 5 MG TABLET 10 MG PO (09:17)
[2023-02-28] MEDS: POTASSIUM CHLORIDE 20 MEQ ER TABLET PO (09:17)
[2023-02-28] MEDS: ATORVASTATIN 40 MG TABLET 80 MG PO (09:17)
[2023-02-28] MEDS: predniSONE 20 MG TABLET 40 MG PO (09:18)
[2023-02-28] MEDS: hydrALAZINE HCL 25 MG TABLET PO ×3 (09:18→18:03)
[2023-02-28] MEDS: EZETIMIBE 10 MG TABLET PO (09:18)
[2023-02-28] MEDS: FUROSEMIDE INJ 40 MG/4 ML VIAL IV PUSH ×2 (09:21→18:03)
[2023-02-28] MEDS: ASPIRIN 81 MG ENTERIC TABLET PO (09:23)
--- NOTE | 2023-02-28 11:34 | PM.IMPN ---
Progress Note: A&P Assessment and Plan (1) Acute on chronic diastolic congestive heart failure: Code(s): I50.33 - Acute on chronic diastolic (congestive) heart failure Status: Acute (2) Hypokalemia: Code(s): E87.6 - Hypokalemia Status: Acute (3) COPD exacerbation: Code(s): J44.1 - Chronic obstructive pulmonary disease with (acute) exacerbation Status: Acute (4) Suspected sleep apnea: Code(s): R29.818 - Other symptoms and signs involving the nervous system Status: Acute (5) Insulin dependent diabetes mellitus: Status: Acute Plan The patient presented to the emergency department for evaluation of lower extremity swelling and orthopnea as detailed in HPI. Labs, imaging, EKG, and all reports were personally reviewed. She appears to have mild volume overload and she will be judiciously diuresed with close monitoring of volume status, renal function, and electrolytes. Potassium has been replaced. Lower extremity venous Doppler ultrasounds ordered to rule out DVT. Chest CTA was negative for pulmonary embolism but was somewhat limited due to artifact. Echocardiogram ordered to evaluate cardiac function. She does have wheezing on exam and has been started on scheduled bronchodilators and a short burst of prednisone. Apnea link ordered given suspicions for sleep apnea. Wean oxygen as tolerated. She would benefit a home oxygen study prior to discharge. Continue basal insulin. Initiate sliding scale insulin, Accu-Cheks, and hypoglycemic protocol. Check hemoglobin A1c. Vital signs were reviewed and they have been stable. Smoking cessation is imperative and was discussed. She declines the need for nicotine patch. Her home medications will be reviewed and resumed as appropriate. Subjective Date/time seen: 02/28/23 11:34 Interval history: Breathing better Exam Narrative: General: Well-developed female in the semi-[place]valle position in bed in no acute distress. Weight: 104.5 kg. BMI: 42.1. HEENT: PERRL, EOMI.? Sclerae anicteric. Tacky mucous membranes. Oropharynx is crowded. Neck:? Supple. No obvious JVD or lymphadenopathy Though exam limited due to neck circumference. Respiratory: Respirations appear nonlabored. Lung sounds are diminished throughout with scattered end-expiratory wheezing. Cardiovascular:? Regular rate and rhythm with S1-S2.? Gastrointestinal:? Abdomen is soft, obese, nontender, and nondistended with positive bowel sounds. Skin:? Warm and dry. Extremities:? No cyanosis or clubbing. Bilateral lower extremity pitting edema, left greater than right. No palpable knots or cords. Equivocal Homans sign bilaterally. Neurologic: Alert and oriented. Cranial nerves 2-12 grossly intact. No gross focal deficits to casual conversation. Psychiatric: Pleasant and cooperative with appropriate mood and affect. Objective Data Vital Signs Vital Signs: Vital Signs - 24 hr 02/27/23 11:58 02/27/23 11:59 02/27/23 11:45 Temperature Pulse Rate 67 66 Respiratory Rate 22 H Blood Pressure Pulse Oximetry 94 89 L Oxygen Delivery Nasal Cannula Oxygen Flow Rate 2 Fraction of Inspired Oxygen 02/27/23 11:47 02/27/23 11:48 02/27/23 12:06 Temperature Pulse Rate 65 67 63 Respiratory Rate 20 19 21 H Blood Pressure 201/87 H Pulse Oximetry 89 L 87 L 97 Oxygen Delivery Oxygen Flow Rate Fraction of Inspired Oxygen 02/27/23 12:15 02/27/23 12:17 02/27/23 12:19 Temperature Pulse Rate 64 63 63 Respiratory Rate 22 H 21 H 21 H Blood Pressure 186/81 H Pulse Oximetry 96 97 96 Oxygen Delivery Oxygen Flow Rate Fraction of Inspired Oxygen 02/27/23 12:30 02/27/23 12:45 02/27/23 12:46 Temperature Pulse Rate 63 63 65 Respiratory Rate 21 H 20 21 H Blood Pressure 189/85 H Pulse Oximetry 97 95 95 Oxygen Delivery Oxygen Flow Rate Fraction of Inspired Oxygen 02/27/23 13:00 02/27/23 13:25 02/27/23 14:54 Temperature Pulse Rate 66
[2023-02-28 12:00] LABS: Glucose Point of Care 265 mg/dl (65-105)
[2023-02-28] MEDS: INSULIN ASPART (*BKC) 100 UNITS/ML SUB-Q ×3 (12:43→20:20)
[2023-02-28] MEDS: ENOXAPARIN 40 MG/0.4 ML SYRINGE SUB-Q (12:51)
--- NOTE | 2023-02-28 15:44 | ECHO_ITS ---
Patient Info Name: Marilynn Pinon Age: 67 years : 1955 Gender: Female Ht: 62 in Wt: 219 lbs BSA: 2.14 m2 HR: 57 bpm BP: 163 / 75 mmHg Heart Rhythm: Sinus Rhythm Technical Quality: Fair Exam Date: 02/28/2023 11:36 AM Exam Location: [facility] Card Pulmonary Patient Status: Inpatient Admit Date: 02/27/2023 Staff Ordering Physician: Dana Ashley PA-C Crew Supervisor: Delores Bedoya RDCS Attending Provider: Nicole Knight DO Referring Physician: Dion IZAGUIRRE; Exam Type: CA echo doppler color flow Study Info Indications - CHF I10 - Essential (primary) hypertension Complete two-dimensional, color flow and Doppler transthoracic echocardiogram is performed. Summary 1. Complete two-dimensional, color flow and Doppler transthoracic echocardiogram is performed. 2. Normal left ventricular size with mild concentric hypertrophy and normal systolic function. 3. No valvular abnormalities. Left Ventricle Left ventricular systolic function is normal, estimated at 65-70%. There is mild concentric increased left ventricular wall thickness. The left ventricular diastolic function is grade I diastolic dysfunction. Right Ventricle Right ventricular chamber dimension is normal. Left Atria Left atrial chamber dimension is normal. Right Atria Right atrial chamber dimension is normal. Aortic Valve The aortic valve is normal. Pulmonic Valve The pulmonic valve is not well visualized. Mitral Valve The mitral valve has normal leaflets. The mitral valve annulus is mildly calcified. Tricuspid Valve The tricuspid valve leaflets are normal. Pericardium/Pleural The pericardium appears normal. Aorta The aortic root size at the sinus of Valsalva is normal. Left Ventricular Outflow Tract Name Value Normal LVOT 2D LVOT Diameter 2.0 cm LVOT Doppler LVOT Peak Gradient 6 mmHg LVOT Mean Gradient 4 mmHg LVOT VTI 32 cm LVOT VTI/AV VTI Ratio 0.9 LVOT Stroke Volume 104 ml LVOT CO 6.1 l/min LVOT CI 2.8 l/min/m2 Pulmonic Valve Name Value Normal RVOT Doppler RVOT Peak Gradient 3 mmHg PV Doppler PV Peak Gradient 5 mmHg Mitral Valve Name Value Normal MV Doppler MV Decel [place] 398 cm/s2 MV PHT 71 ms MV Area (PHT) 3.1 cm2 4.0-5.0 MV Diastolic Function
[2023-02-28 17:23] LABS: Glucose Point of Care 342 mg/dl (65-105)
--- NOTE | 2023-02-28 19:08 | PC.NURSE ---
Pt is A&O4 female who has participated and contributed in plan of care. Pt denies any pain. Pt oxygenating better today than yesterday, still on 4L O2. Pt has been slid 2 times today with standing insulin order. Pt has been monitored for any changes in status while here.
[2023-02-28 22:36] LABS: Glucose Point of Care 376 mg/dl (65-105)
[2023-03-01] VITALS (11 sets, daily range): BP systolic 102–146; BP diastolic 44–51; PULSE 59–88; RESP 16–18; TEMP 35.9–37; O2SAT 94–98
[2023-03-01] MEDS: MELATONIN 5 MG TABLET PO (01:06)
[2023-03-01 06:54] LABS: Basophils Percent Auto 0.3 % (0.2-1.2); Eosinophils Absolute Auto 0.1 K/mm3 (0-0.3); Eosinophils Percent Auto 0.5 % (0-4.4); Hematocrit 38.8 % (37.0-47.0); Hemoglobin 12.8 g/dL (12.0-15.0); Immature Granulocyte Absolute 0.04 K/mm3 (0.00-0.031); Immature Granulocyte Percent A 0.4 % (0-0.5); Lymphocytes Absolute Auto 2.66 K/mm3 (0.9-3.2); Lymphocytes Percent Auto 28.2 % (18.3-44.2); Mean Corpuscular Hemoglobin 29.5 pg (26-34); Mean Corpuscular Volume 89.4 fl (80-100); Mean Platelet Volume 9.6 fl (7.4-10.4); Monocytes Absolute Auto 0.8 K/mm3 (0.1-0.6); Neutrophils Absolute Auto 5.9 K/mm3 (1.3-6.7); Neutrophils Percent Auto 62.6 % (45.5-73.1); Platelet Count Result 191 k/mm3 (150-375); Red Blood Count 4.34 M/mm3 (4.2-5.4); Red Cell Distribution Width 14.3 % (11.5-14.5); White Blood Count 9.4 K/mm3 (4.5-10.0)
[2023-03-01 07:02] LABS: Anion Gap 2 mmol/L (8-16); Blood Urea Nitrogen 19 mg/dL (7-17); Calcium 8.9 mg/dL (8.4-10.2); Carbon Dioxide 37 mmol/L (22-30); Chloride 97 mmol/L (98-107); Estimated CRCL calculation 77 ml/min; Estimated Glomerular Filt Rate > 60; Glucose 229 mg/dL (65-110); Potassium 3.9 mmol/L (3.4-5.0); Sodium 136 mmol/L (137-145)
[2023-03-01 07:53] LABS: Glucose Point of Care 210 mg/dl (65-105)
[2023-03-01] MEDS: INSULIN ASPART (*BKC) 100 UNITS/ML 11 UNITS SUB-Q ×3 (08:32→17:08)
[2023-03-01] MEDS: INSULIN ASPART (*BKC) 100 UNITS/ML SUB-Q ×4 (08:33→21:03)
[2023-03-01] MEDS: predniSONE 20 MG TABLET 40 MG PO (09:52)
[2023-03-01] MEDS: amLODIPine BESYLATE 5 MG TABLET 10 MG PO (09:52)
[2023-03-01] MEDS: lisinopriL 20 MG TABLET 40 MG PO (09:53)
[2023-03-01] MEDS: POTASSIUM CHLORIDE 20 MEQ ER TABLET PO (09:54)
[2023-03-01] MEDS: EZETIMIBE 10 MG TABLET PO (09:54)
[2023-03-01] MEDS: ATORVASTATIN 40 MG TABLET 80 MG PO (09:54)
[2023-03-01] MEDS: carvediloL 12.5 MG TABLET PO ×2 (09:54→21:03)
[2023-03-01] MEDS: CLOPIDOGREL BISULFATE 75 MG TABLET PO (09:54)
[2023-03-01] MEDS: hydrALAZINE HCL 25 MG TABLET PO ×3 (09:55→17:07)
[2023-03-01] MEDS: ALPRAZolam (*CRX) 0.5 MG TABLET 1 MG PO ×3 (10:04→21:03)
[2023-03-01] MEDS: ASPIRIN 81 MG ENTERIC TABLET PO (10:06)
--- NOTE | 2023-03-01 11:15 | PM.IMPN ---
Progress Note: A&P Assessment and Plan (1) Acute on chronic diastolic congestive heart failure: Code(s): I50.33 - Acute on chronic diastolic (congestive) heart failure Status: Acute Assessment and Plan: Continue diuresis. Respiratory status improved. (2) Hypokalemia: Code(s): E87.6 - Hypokalemia Status: Acute Assessment and Plan: Monitor and replace (3) COPD exacerbation: Code(s): J44.1 - Chronic obstructive pulmonary disease with (acute) exacerbation Status: Acute Assessment and Plan: Nebulizers Oral prednisone improved (4) Suspected sleep apnea: Code(s): R29.818 - Other symptoms and signs involving the nervous system Status: Acute (5) Insulin dependent diabetes mellitus: Status: Acute Assessment and Plan: monitor bs Plan likely dc in 1-2 days Subjective Date/time seen: 03/01/23 11:15 Interval history: No complaints Exam Narrative: General: Well-developed female in the semi-Ovalle position in bed in no acute distress. Weight: 104.5 kg. BMI: 42.1. HEENT: PERRL, EOMI.? Sclerae anicteric. Tacky mucous membranes. Oropharynx is crowded. Neck:? Supple. No obvious JVD or lymphadenopathy Though exam limited due to neck circumference. Respiratory: Respirations appear nonlabored. Lung sounds are diminished throughout with scattered end-expiratory wheezing. Cardiovascular:? Regular rate and rhythm with S1-S2.? Gastrointestinal:? Abdomen is soft, obese, nontender, and nondistended with positive bowel sounds. Skin:? Warm and dry. Extremities:? No cyanosis or clubbing. Bilateral lower extremity pitting edema, left greater than right. No palpable knots or cords. Equivocal Homans sign bilaterally. Neurologic: Alert and oriented. Cranial nerves 2-12 grossly intact. No gross focal deficits to casual conversation. Psychiatric: Pleasant and cooperative with appropriate mood and affect. Objective Data Vital Signs Vital Signs: Vital Signs - 24 hr 02/28/23 13:04 02/28/23 13:17 02/28/23 14:00 Temperature 97.6 F Pulse Rate 62 63 64 Respiratory Rate 18 18 16 Blood Pressure 143/57 H Pulse Oximetry 95 Oxygen Delivery Oxygen Flow Rate Fraction of Inspired Oxygen 02/28/23 19:53 02/28/23 19:53 02/28/23 20:20 Temperature Pulse Rate 64 74 Respiratory Rate 18 Blood Pressure Pulse Oximetry 93 Oxygen Delivery Nasal Cannula Oxygen Flow Rate 4 Fraction of Inspired Oxygen 36 02/28/23 20:00 02/28/23 22:00 03/01/23 06:00 Temperature 99 F 97.5 F L Pulse Rate 74 75 59 L Respiratory Rate 18 20 16 Blood Pressure 150/65 H 129/51 L Pulse Oximetry 93 97 98 Oxygen Delivery Nasal Cannula Oxygen Flow Rate 4 Fraction of Inspired Oxygen 36 03/01/23 09:54 Temperature Pulse Rate 60 Respiratory Rate Blood Pressure Pulse Oximetry Oxygen Delivery Oxygen Flow Rate Fraction of Inspired Oxygen Intake/Output Intake/Output: Intake & Output 02/26/23 02/27/23 02/28/23 03/01/23 23:59 23:59 23:59 23:59 Intake Total 572 044 9848 Balance 745 371 4524 Meds/Results Medications: Active Medications Generic Name Dose Route Start Last Admin Trade Name Freq PRN Reason Stop Dose Admin Acetaminophen 650 mg 02/27/23 23:43 Acetaminophen 325 Mg Tablet PO Q6H PRN Mild Pain (1-3) or Fever Albuterol 2.5 mg 02/28/23 02:00 03/01/23 02:04 Albuterol Sulfate Neb 2.5 Mg/3 Ml Inh INHALATION Not Given Q6HRT PALAK Alprazolam 1 mg 02/28/23 09:00 03/01/23 10:04 Alprazolam (*Crx) 0.5 Mg Tablet PO 1 mg BID PALAK Administration Alprazolam 1 mg 02/28/23 00:47 02/28/23 01:01 Alprazolam (*Crx) 0.5 Mg Tablet PO 1 mg ONCE PRN Administration Anxiety Amlodipine Besylate 10 mg 02/28/23 09:00 03/01/23 09:52 Amlodipine Besylate 5 Mg Tablet PO 10 mg DAILY PALAK Administration Aspirin 81 mg 02/28/23 09:00 03/01/23 10:06 Aspirin 81 Mg Enteric Tablet
[2023-03-01] MEDS: FUROSEMIDE INJ 40 MG/4 ML VIAL IV PUSH ×2 (11:48→17:07)
[2023-03-01 11:49] LABS: Glucose Point of Care 305 mg/dl (65-105)
[2023-03-01] MEDS: ALBUTEROL SULFATE NEB 2.5 MG/3 ML INH INHALATION ×2 (12:57→19:40)
[2023-03-01] MEDS: IPRATROPIUM BR 0.02% INH SOLN 0.5 MG/2.5 ML VIAL INHALATION ×2 (12:57→19:41)
[2023-03-01 16:52] LABS: Glucose Point of Care 401 mg/dl (65-105)
--- NOTE | 2023-03-01 17:27 | PC.NURSE ---
Patients BS at dinner was 401. Charge nurse spoke to Nella Aguayo by phone and was order to give 17 units of Novolog and recheck BS in two hours
[2023-03-01] MEDS: ACETAMINOPHEN 325 MG TABLET 650 MG PO (21:02)
[2023-03-01] MEDS: INSULIN ASPART (*BKC) 100 UNITS/ML 6 UNITS SUB-Q (21:03)
[2023-03-01] MEDS: INSULIN GLARGINE (*BKC) 100 UNITS/ML 36 UNITS SUB-Q (21:03)
[2023-03-01 21:21] LABS: Glucose Point of Care 411 mg/dl (65-105)
[2023-03-01 23:05] LABS: Glucose Point of Care 443 mg/dl (65-105)
[2023-03-01] MEDS: INSULIN ASPART (*BKC) 100 UNITS/ML 10 UNITS SUB-Q (23:12)
[2023-03-02] VITALS (17 sets, daily range): BP systolic 104–159; BP diastolic 48–66; PULSE 51–80; RESP 16–20; TEMP 35.7–36.3; O2SAT 92–100
[2023-03-02 02:09] LABS: Glucose Point of Care 346 mg/dl (65-105)
[2023-03-02] MEDS: ACETAMINOPHEN 325 MG TABLET 650 MG PO (03:01)
[2023-03-02] MEDS: ALBUTEROL SULFATE NEB 2.5 MG/3 ML INH INHALATION ×4 (03:02→20:10)
[2023-03-02] MEDS: IPRATROPIUM BR 0.02% INH SOLN 0.5 MG/2.5 ML VIAL INHALATION ×4 (03:02→20:10)
[2023-03-02 07:52] LABS: Glucose Point of Care 235 mg/dl (65-105)
[2023-03-02] MEDS: INSULIN ASPART (*BKC) 100 UNITS/ML SUB-Q ×4 (08:24→21:00)
[2023-03-02] MEDS: INSULIN ASPART (*BKC) 100 UNITS/ML 11 UNITS SUB-Q ×3 (08:25→17:02)
[2023-03-02] MEDS: FUROSEMIDE INJ 40 MG/4 ML VIAL IV PUSH ×2 (08:27→16:59)
[2023-03-02] MEDS: ATORVASTATIN 40 MG TABLET 80 MG PO (08:27)
[2023-03-02] MEDS: amLODIPine BESYLATE 5 MG TABLET 10 MG PO (08:27)
[2023-03-02] MEDS: CLOPIDOGREL BISULFATE 75 MG TABLET PO (08:27)
[2023-03-02] MEDS: carvediloL 12.5 MG TABLET PO ×2 (08:28→21:00)
[2023-03-02] MEDS: lisinopriL 20 MG TABLET 40 MG PO (08:28)
[2023-03-02] MEDS: POTASSIUM CHLORIDE 20 MEQ ER TABLET PO (08:28)
[2023-03-02] MEDS: predniSONE 20 MG TABLET 40 MG PO (08:28)
[2023-03-02] MEDS: EZETIMIBE 10 MG TABLET PO (08:29)
[2023-03-02] MEDS: hydrALAZINE HCL 25 MG TABLET PO ×3 (08:29→17:02)
[2023-03-02] MEDS: ALPRAZolam (*CRX) 0.5 MG TABLET 1 MG PO ×3 (08:31→21:00)
[2023-03-02] MEDS: ASPIRIN 81 MG ENTERIC TABLET PO (08:32)
[2023-03-02 08:50] LABS: Albumin Level 3.6 g/dL (3.5-5.1); Anion Gap 1 mmol/L (8-16); Blood Urea Nitrogen 24 mg/dL (7-17); Calcium 8.7 mg/dL (8.4-10.2); Carbon Dioxide 35 mmol/L (22-30); Chloride 98 mmol/L (98-107); Estimated CRCL calculation 78 ml/min; Estimated Glomerular Filt Rate > 60; Glucose 233 mg/dL (65-110); Magnesium 2.2 mg/dL (1.6-2.3); Phosphorus 3.3 mg/dL (2.5-4.5); Potassium 3.8 mmol/L (3.4-5.0); Sodium 134 mmol/L (137-145)
--- NOTE | 2023-03-02 11:41 | PCCCNOTE ---
On 03/02/23, the student, [Lenore Velazquez], provided care and completed [facility] documentation on this patient. I have reviewed the student's documentation and agree with the findings.
[2023-03-02 11:52] LABS: Glucose Point of Care 221 mg/dl (65-105)
--- NOTE | 2023-03-02 14:34 | PM.IMPN ---
Progress Note: A&P Assessment and Plan (1) Acute on chronic diastolic congestive heart failure: Code(s): I50.33 - Acute on chronic diastolic (congestive) heart failure Status: Acute Assessment and Plan: BNP only 221 and CXR showing CMG but no active disease. Echo showing EF 65-70% with Grade I diastolic dysfunction. Rt atrial pressure 10. Patient with pedal edema probably related to diastolic dysfunction. Apnea link positive but Rt atrial pressure not significantly elevated. Doppler negative for DVT. Will continue diuresis one more day. Repeat CXR. (2) Hypokalemia: Code(s): E87.6 - Hypokalemia Status: Acute Assessment and Plan: Potassium 2.8 on admission. Normal since replacement. Contineu to monitor (3) COPD exacerbation: Code(s): J44.1 - Chronic obstructive pulmonary disease with (acute) exacerbation Status: Acute Assessment and Plan: Patient with COPD exacerbation on admission. No wheezing now. Continue Prednisone, neb treatments. (4) Suspected sleep apnea: Code(s): R29.818 - Other symptoms and signs involving the nervous system Status: Acute Assessment and Plan: Apnea Link showing AHI 26 and RI 28. She was on 4L and she inadvertently disconnected the ApneaLink after 2hrs. Will repeat on room air. (5) Insulin dependent diabetes mellitus: Status: Acute Assessment and Plan: A1c 9.4. The patient's blood glucose was reviewed on 03/02 Glucose remains poorly controlled related to steroids. Continue AccuCheks covering with sliding scale. Hypoglycemia protocol available as needed. Advance lantus Plan likely dc in 1-2 days Subjective Date/time seen: 03/02/23 14:34 Interval history: 67yo female with HTN, dCHF and COPD here for leg edema. Assuming care. Chart reviewed. She is not on O2 normally. Denies SOB or cough. No CP. Walking to the bathroom. Lives alone. Exam Narrative: AF 97.1 104/48 62 16 100% ra Gen - NARD Chest - inspiratory crackles mid and lower lung stokes bilatrally, nml RR CV - RRR S1/S2 Abd - soft, obese, NT Ext - 1-2+ pitting bilateral LE edema. Psych- nml mood and affect Skin - warm and dry Objective Data Vital Signs Vital Signs: Vital Signs - 24 hr 03/01/23 19:42 03/01/23 21:03 03/01/23 21:00 Temperature Pulse Rate 64 88 88 Respiratory Rate 17 17 Blood Pressure Pulse Oximetry 94 Oxygen Delivery Nasal Cannula Oxygen Flow Rate 2 Fraction of Inspired Oxygen 36 03/01/23 20:05 03/01/23 22:00 03/02/23 03:02 Temperature 96.7 F L Pulse Rate 74 71 Respiratory Rate 18 18 Blood Pressure 146/44 H Pulse Oximetry 95 98 Oxygen Delivery Nasal Cannula Oxygen Flow Rate 2 Fraction of Inspired Oxygen 28 03/02/23 03:08 03/02/23 06:00 03/02/23 08:28 Temperature 96.2 F L Pulse Rate 72 51 L 60 Respiratory Rate 18 20 Blood Pressure 141/55 H Pulse Oximetry 99 Oxygen Delivery Oxygen Flow Rate Fraction of Inspired Oxygen 03/02/23 09:45 03/02/23 09:46 03/02/23 08:20 Temperature Pulse Rate 56 L Respiratory Rate 16 Blood Pressure Pulse Oximetry 96 98 Oxygen Delivery Room Air Nasal Cannula Oxygen Flow Rate 2 Fraction of Inspired Oxygen 03/02/23 08:45 03/02/23 09:55 03/02/23 14:12 Temperature Pulse Rate 60 62 Respiratory Rate 16 16 Blood Pressure Pulse Oximetry 94 Oxygen Delivery Room Air Oxygen Flow Rate Fraction of Inspired Oxygen Intake/Output Intake/Output: Intake & Output 02/27/23 02/28/23 03/01/23 03/02/23 23:59 23:59 23:59 23:59 Intake Total 862 064 1598 854 Balance 761 818 6920 854 Meds/Results Medications: Active Medications Generic Name Dose Route Start Last Admin Trade Name Freq PRN Reason Stop Dose Admin Acetaminophen 650 mg 02/27/23 23:43 03/02/23 03:01 Acetaminophen 325 Mg Tablet PO 650 mg Q6H PRN Administration Mild Pain (1-3) or Fe
[2023-03-02 16:54] LABS: Glucose Point of Care 352 mg/dl (65-105)
--- NOTE | 2023-03-02 19:00 | PC.NURSE ---
On 03/02/23, the TECHNICAL SUPPORT SPECIALIST, Carolyn Asher, provided care and completed [facility] documentation on this patient. I have reviewed the TECHNICAL SUPPORT SPECIALIST's documentation and agree with the findings.
[2023-03-02] MEDS: INSULIN GLARGINE (*BKC) 100 UNITS/ML 42 UNITS SUB-Q (21:00)
[2023-03-02 21:37] LABS: Glucose Point of Care 361 mg/dl (65-105)
--- NOTE | 2023-03-02 23:07 | PCRCNOTE ---
Patient refused apnea link tonight stating she does not have sleep apnea, and if she did, she would not use a cpap machine. RT encouraged overnight study, in which patient stated she did not need to do it.
[2023-03-03] VITALS (8 sets, daily range): BP systolic 120–165; BP diastolic 45–60; PULSE 55–90; RESP 16–20; TEMP 36.1–36.2; O2SAT 94–96
--- NOTE | 2023-03-03 03:07 | PCRCNOTE ---
Pt refused 0200 updraft treatment due to wanting sleep. Treatment to continue at 0800.
[2023-03-03 07:59] LABS: Anion Gap 2 mmol/L (8-16); Blood Urea Nitrogen 23 mg/dL (7-17); Calcium 8.5 mg/dL (8.4-10.2); Carbon Dioxide 35 mmol/L (22-30); Chloride 97 mmol/L (98-107); Estimated CRCL calculation 77 ml/min; Estimated Glomerular Filt Rate > 60; Glucose 240 mg/dL (65-110); Potassium 3.8 mmol/L (3.4-5.0); Sodium 134 mmol/L (137-145)
[2023-03-03 08:02] LABS: Glucose Point of Care 234 mg/dl (65-105)
[2023-03-03] MEDS: INSULIN ASPART (*BKC) 100 UNITS/ML SUB-Q ×2 (08:23→12:21)
[2023-03-03] MEDS: INSULIN ASPART (*BKC) 100 UNITS/ML 11 UNITS SUB-Q ×2 (08:23→12:21)
[2023-03-03] MEDS: ATORVASTATIN 40 MG TABLET 80 MG PO (08:24)
[2023-03-03] MEDS: POTASSIUM CHLORIDE 20 MEQ ER TABLET PO (08:24)
[2023-03-03] MEDS: amLODIPine BESYLATE 5 MG TABLET 10 MG PO (08:24)
[2023-03-03] MEDS: CLOPIDOGREL BISULFATE 75 MG TABLET PO (08:24)
[2023-03-03] MEDS: lisinopriL 20 MG TABLET 40 MG PO (08:24)
[2023-03-03] MEDS: carvediloL 12.5 MG TABLET PO (08:25)
[2023-03-03] MEDS: predniSONE 20 MG TABLET 40 MG PO (08:25)
[2023-03-03] MEDS: hydrALAZINE HCL 25 MG TABLET PO ×2 (08:25→12:22)
[2023-03-03] MEDS: EZETIMIBE 10 MG TABLET PO (08:26)
[2023-03-03] MEDS: ASPIRIN 81 MG ENTERIC TABLET PO (08:27)
[2023-03-03] MEDS: ALPRAZolam (*CRX) 0.5 MG TABLET 1 MG PO (08:30)
[2023-03-03] MEDS: IPRATROPIUM BR 0.02% INH SOLN 0.5 MG/2.5 ML VIAL INHALATION ×2 (09:18→14:50)
[2023-03-03] MEDS: ALBUTEROL SULFATE NEB 2.5 MG/3 ML INH INHALATION ×2 (09:18→14:50)
[2023-03-03] MEDS: FUROSEMIDE INJ 40 MG/4 ML VIAL IV PUSH (09:48)
--- NOTE | 2023-03-03 15:41 | PM.DS ---
DS: Admitting Diagnosis Discharge Date 03/03/23 Admitting Diagnosis Leg edema DS: Discharge Diagnosis Discharge Diagnosis (1) Acute on chronic diastolic congestive heart failure: Code(s): I50.33 - Acute on chronic diastolic (congestive) heart failure Status: Acute (2) Hypokalemia: Code(s): E87.6 - Hypokalemia Status: Acute (3) COPD exacerbation: Code(s): J44.1 - Chronic obstructive pulmonary disease with (acute) exacerbation Status: Acute (4) Suspected sleep apnea: Code(s): R29.818 - Other symptoms and signs involving the nervous system Status: Acute (5) Insulin dependent diabetes mellitus: Status: Acute DS: Summary Hospital Course Reason for hospitalization: 67yo female with HTN, dCHF and COPD here for leg edema. Please see H&P for details. Hospital Course: Patient presents with increasing leg edema.BNP only 221 and CXR showing CMG but no active disease. Echo showing EF 65-70% with Grade I diastolic dysfunction. Rt atrial pressure 10. Patient with pedal edema probably related to diastolic dysfunction vs venous insufficiency. Apnea link positive but Rt atrial pressure not significantly elevated. Doppler negative for DVT. She was treated with IV Lasix with good results. Potassium was low on admission but this was replaced and has been normal since. It was felt that the patient had a COPD exacerbation on admission. She was treated with prednisone. No further wheezing. ApneaLink on 4 L showed AHI of 26 and on RI of 28 the patient disconnected from the device inadvertently after 2 hours. Plan for sleep study as an outpatient. She had clinical improvement. She was able be discharged home on 03/03/2023. Status at Discharge Cognitive/behavioral status at discharge: Stable Time Spent with Patient Time attestation: Total time spent providing and/or coordinating discharge services: 34 minutes Exam Narrative: AF 97.0 120/45 64 18 95% ra Gen - NARD Chest - few basilar crackles o/w clear. CV - RRR S1/S2 Abd - soft, obese, NT Ext - trace bilateral LE edema. Psych- nml mood and affect Skin - warm and dry DS: Data Data Completed and Pending Labs on day of discharge: Labs from last 24 hours 03/03/23 03/03/23 03/02/23 07:59 07:30 20:42 Sodium 134 L Potassium 3.8 Chloride 97 L Carbon Dioxide 35 H Anion Gap 2 L BUN 23 H Creatinine 0.70 Estim Creat Clear Calc 77 Estimated GFR > 60 Glucose 240 H POC Capillary Glucose 234 H 361 H Calcium 8.5 03/02/23 16:51 Sodium Potassium Chloride Carbon Dioxide Anion Gap BUN Creatinine Estim Creat Clear Calc Estimated GFR Glucose POC Capillary Glucose 352 H Calcium Discharge Plan Discharge Attending physician on discharge: El Perdomo Discharging Clinician: El Perdomo Anticipated Discharge Date/Time: 03/03/23 15:51 Patient Disposition: Home, Self-Care Activity: as tolerated Diet: heart healthy and diabetic Discharge Instructions: Please check glucose before meals and before bed. Record and bring into your doctor for review. Check blood pressure 1 to 2 times a day. Record and bring into your doctor for review. Call your doctor if your blood pressure is greater than 180/110. Take precautions to avoid falls. Rise slowly from a lying or sitting position. Pause before standing or walking. Check daily morning weights after voiding. Call your doctor if you gain more than 3 lb in 2 days or 5 lb in 1 week. Contact your doctor or call 911 and come to the Emergency Room if you have shortness of breath or other worrisome symptoms. Avoid NSAIDs (ibuprofen, naproxen, Aleve). Tylenol is safe to take. Wear compression hose on in the morning and off at bedtime. Follow-up with your primary care provider in 1-2 weeks. Please call for appointment. Please talk with your doctor about setting up a sleep yon
--- NOTE | 2023-03-03 16:10 | PC.NURSE ---
On 03/03/23, the PEACH GROWER, Carolyn Asher, provided care and completed [facility] documentation on this patient. I have reviewed the PEACH GROWER's documentation and agree with the findings.
[2023-03-03 19:46] LABS: Glucose Point of Care 269 mg/dl (65-105)
== END 2023-03-03 16:55 | disposition home or self-care (01) | DRG 291 ==
LOC: ANHED 11:03 → ANH3MEDSUR 13:37
PROVIDERS: Chiropractor; Physician Assistant; Admitting Provider Student in an Organized Health Care Education/Training Program; Emergency Provider Emergency Medicine; PCP Internal Medicine; Visit Provider Internal Medicine
DX: I11.0 Hypertensive heart disease with heart failure (principal); I50.33 Acute on chronic diastolic (congestive) heart failure; Z68.41 Body mass index [BMI] 40.0-44.9, adult; J44.1 Chronic obstructive pulmonary disease with (acute) exacerbation; E78.5 Hyperlipidemia, unspecified; E87.6 Hypokalemia; E11.9 Type 2 diabetes mellitus without complications; E66.9 Obesity, unspecified; Z86.73 Personal history of transient ischemic attack (TIA), and cerebral infarction without residual deficits; Z90.49 Acquired absence of other specified parts of digestive tract; Z90.710 Acquired absence of both cervix and uterus; Z87.891 Personal history of nicotine dependence; G47.30 Sleep apnea, unspecified
CPT/HCPCS: 36415; 71046; 80048; 80053; 80069; 82948; 83036; 83735; 83880; 84443; 84484; 85025; 85027; 85610; 85730; 93005; 93306; 93970; 94640; 94762; 99285; A9270; J1650; J1815; J1940; J3480; J7040; J7512

== ENCOUNTER 2023-05-23 12:51 | Inpatient (IN) | payer MEDICARE, MEDICAID, SELFPAY ==
[2023-05-23] VITALS (42 sets, daily range): BP systolic 127–157; BP diastolic 53–81; PULSE 58–71; RESP 15–26; TEMP 36.6–36.7; O2SAT 86–97; BMI 39.4
--- NOTE | ~2023-05-23 | XR_ITS ---
EXAMINATION: XR chest 2V 05/23/2023 13:37 INDICATION: Shortness of breath PROCEDURE: 2 view chest COMPARISON: Comparison to multiple prior studies sequentially, with oldest reviewed study dated 06/01. FINDINGS: The lungs are clear. The cardiomediastinal silhouette is within normal limits. There are no pleural effusions. There is no pneumothorax suspected. IMPRESSION: 1: NO ACUTE CARDIOPULMONARY DISEASE. Reviewed, dictated and finalized at location B.
--- NOTE | ~2023-05-23 | US_ITS ---
EXAMINATION:US venous doppler LE BI INDICATION:Leg swelling TECHNIQUE: Multiple grayscale, color flow and Doppler images of the right and left lower extremity de ep venous systems were obtained and reviewed. COMPARISON:02/28/2023 FINDINGS: The common femoral, superficial femoral and popliteal veins demonstrate normal respiratory variation, augmentation and compressibility. Color flow is also seen within the posterior tibial, pe roneal, greater saphenous and profunda veins. IMPRESSION: 1: No lower extremity deep venous thrombosis. Reviewed, dictated and finalized at location B.
--- NOTE | 2023-05-23 13:04 | ECG_ITS ---
Measurements Intervals [place] Rate: 58 P: 13 AL: 219 QRS: 46 QRSD: 108 T: 35 QT: 430 QTc: 424 Interpretive Statements SINUS BRADYCARDIA WITH FIRST DEGREE AV BLOCK LOW QRS VOLTAGE IN PRECORDIAL LEADS [QRS DEFLECTION < 1.0 mV IN CHEST LEADS] BORDERLINE ECG COMPARED TO ECG 02/27/2023 10:27:46 NO SIGNIFICANT DIFFERENCE Electronically Signed On 05-23-2023 15:00:38 CDT by Lennox Wu M.D.
[2023-05-23 13:22] LABS: Basophils Absolute Auto 0.1 K/mm3 (0.0-0.1); Basophils Percent Auto 0.8 % (0.2-1.2); Eosinophils Absolute Auto 0.3 K/mm3 (0-0.3); Eosinophils Percent Auto 4.3 % (0-4.4); Hematocrit 45.1 % (37.0-47.0); Hemoglobin 14.4 g/dL (12.0-15.0); Immature Granulocyte Absolute 0.02 K/mm3 (0.00-0.031); Immature Granulocyte Percent A 0.3 % (0-0.5); Lymphocytes Absolute Auto 2.36 K/mm3 (0.9-3.2); Lymphocytes Percent Auto 30.6 % (18.3-44.2); Mean Corpuscular HGB Conc 31.9 g/dl (32-36); Mean Corpuscular Hemoglobin 29.4 pg (26-34); Mean Platelet Volume 10.1 fl (7.4-10.4); Monocytes Absolute Auto 0.5 K/mm3 (0.1-0.6); Monocytes Percent Auto 6.3 % (2.6-8.5); Neutrophils Absolute Auto 4.5 K/mm3 (1.3-6.7); Neutrophils Percent Auto 57.7 % (45.5-73.1); Platelet Count Result 214 k/mm3 (150-375); White Blood Count 7.7 K/mm3 (4.5-10.0)
[2023-05-23 13:33] LABS: Alanine Aminotransferase 16 U/L (6-35); Albumin Level 4.4 g/dL (3.5-5.1); Alkaline Phosphatase 40 U/L (38-126); Anion Gap 6 mmol/L (8-16); Aspartate Amino Transferase 18 U/L (14-36); Bilirubin,Total 0.6 mg/dL (0.2-1.3); Blood Urea Nitrogen 12 mg/dL (7-17); Carbon Dioxide 32 mmol/L (22-30); Chloride 101 mmol/L (98-107); Estimated CRCL calculation 64 ml/min; Estimated Glomerular Filt Rate > 60; Glucose 252 mg/dL (65-110); Partial Thromboplastin Time 26.3 SECONDS (22.3-36.8); Potassium 3.6 mmol/L (3.4-5.0); Sodium 139 mmol/L (137-145)
[2023-05-23 13:44] LABS: NT Pro B Type Natriuretic Pept 218 pg/mL (19.9-100)
--- NOTE | 2023-05-23 13:48 | ED.GENADULT ---
HPI - General Adult General Chief complaint: Extremity Problem,Nontraumatic <Sena Trevizo November, SECURITY ADMINISTRATOR - Last Filed: 05/23/23 14:35> Stated complaint: leg/feet swelling <Sena Trevizo November, SECURITY ADMINISTRATOR - Last Filed: 05/23/23 14:35> Time Seen by Provider: 05/23/23 16:14 <Sena Trevizo November, SECURITY ADMINISTRATOR - Last Filed: 05/23/23 14:35> History of Present Illness HPI narrative: Marilynn Pinon is a 68 y/o female who presents with reported hx of CHF who presents with increased lower leg swelling that has been getting worse over the past week. Denies chest pain / she states she always feels SOB. No fevers/chills, she is also concerned that her left leg is more swollen then the right. <Sena Trevizo November, SECURITY ADMINISTRATOR - Last Filed: 05/23/23 14:35> Marilynn Pinon is a 68 y/o female who presents with reported hx of CHF who presents with increased lower leg swelling that has been getting worse over the past week. Denies chest pain / she states she always feels SOB. No fevers/chills, she is also concerned that her left leg is more swollen then the right. States that she has been compliant with her Lasix 80 mg daily. Denies any changes in her diet or other habits. <Betty Bermeo MD - Last Filed: 05/26/23 17:09> Related Data Home medications: Home Medications Medication Instructions Recorded Confirmed alprazolam 1 mg tablet 1 mg PO TID PRN Anxiety 01/14/21 05/24/23 carvedilol 12.5 mg tablet 12.5 mg PO BID 01/14/21 05/23/23 ezetimibe 10 mg tablet 10 mg PO DAILY 01/14/21 05/23/23 insulin lispro 100 unit/mL 15 unit subcut TID 08/18/21 05/23/23 subcutaneous solution (Humalog U-100 Insulin) albuterol sulfate 90 mcg/actuation 1 puff inhalation Q4H PRN 09/03/22 05/23/23 aerosol inhaler (Ventolin HFA) Shortness Of Breath amlodipine 10 mg tablet 10 mg PO DAILY 09/03/22 05/23/23 aspirin 81 mg tablet,delayed 81 mg PO DAILY 09/03/22 05/23/23 release furosemide 40 mg tablet 80 mg PO DAILY 09/03/22 05/23/23 hydralazine 25 mg tablet 25 mg PO TID 09/03/22 05/23/23 lisinopril 40 mg tablet 40 mg PO DAILY 09/03/22 05/23/23 metformin 500 mg tablet,extended 500 mg PO HS 09/03/22 05/23/23 release 24 hr insulin glargine 100 unit/mL (3 20 unit subcut HS 05/23/23 05/23/23 mL) subcutaneous pen (Lantus Solostar U-100 Insulin) <Sena Trevizo November, - Last Filed: 05/23/23 14:35> Allergies/adverse reactions: Allergies Allergy/AdvReac Type Severity Reaction Status Date / Time codeine AdvReac Unknown Nausea and Verified 05/23/23 21:49 Vomiting baclofen AdvReac Nausea and Verified 05/23/23 21:49 Vomiting sulfamethoxazole AdvReac Nausea and Verified 05/23/23 21:49 [From Bactrim] Vomiting trimethoprim [From Bactrim] AdvReac Nausea and Verified 05/23/23 21:49 Vomiting <Sena Trevizo November, - Last Filed: 05/23/23 14:35> Review of Systems Review of Systems: All systems reviewed & are unremarkable except as noted in HPI and below <Betty Bermeo MD - Last Filed: 05/26/23 17:09> [facility] Past Medical History Medical History: Medical History Anxiety Cerebrovascular accident Chronic obstructive pulmonary disease Diastolic congestive heart failure Hyperlipidemia Hypertension Insulin dependent diabetes mellitus Stenosis of left internal carotid artery <Sena Trevizo November, - Last Filed: 05/23/23 14:35> Surgical History Surgical History: Surgical History History of cholecystectomy History of hysterectomy History of tonsillectomy <Sena Trevizo November,N - Last Filed: 05/23/23 14:35> Family History Family History: Family History Father Diabetes mellitus Coronary artery disease Mother Diabetes mellitus Coronary artery disease Colon cancer Sibling Diabetes mellitus <Sena Henao, SECURITY ADMINISTRATOR - Last Filed: 05/23/23 14:35> Social History
[2023-05-23 14:13] LABS: Troponin I < 0.012 ng/mL (0.000-0.034)
[2023-05-23 16:06] LABS: Appearance Urine Cloudy (Clear); Bacteria Urine 4+ /hpf; Bilirubin Urine Negative (Negative); Blood Urine Negative (Negative); Color Urine Yellow (Yellow); Glucose Urine UA Negative (Negative); Ketones Urine Negative (Negative); Leukocyte Esterase Ur 1+ LEU/UL (Negative); Nitrate Urine Positive (Negative); Protein Urine Negative (Negative); RBC Urine 0-2 /hpf (0-2); Specific Grav Ur 1.009 (1.001-1.035); Squamous Epithelial Cell Urine None seen /hpf (Few); Urobilinogen Urine 0.2 mg/dL (<2.0); pH Urine 5.5 (5.0-9.0)
[2023-05-23 16:29] LABS: Add Urine Microscopic? YES
[2023-05-23] MEDS: ALBUTEROL SULFATE NEB 2.5 MG/3 ML INH 5 MG INHALATION (16:49)
[2023-05-23] MEDS: IPRATROPIUM BR 0.02% INH SOLN 0.5 MG/2.5 ML VIAL INHALATION (16:49)
[2023-05-23] MEDS: FUROSEMIDE INJ 100 MG/10 ML VIAL 80 MG IV PUSH (17:27)
[2023-05-23] MEDS: cefTRIAXone 2 GM/NS 100 ML 2 GM/100 ML BAG IVPB (17:28)
--- NOTE | 2023-05-23 19:33 | PM.IMHP ---
H&P: HPI History of Present Illness Date/Time: 05/23/23 19:33 Chief Complaint: leg swelling Narrative: THIS IS A 68-YEAR-OLD FEMALE WITH PAST MEDICAL HISTORY SIGNIFICANT FOR DIASTOLIC HEART FAILURE, TYPE 2 DIABETES MELLITUS, OBESITY, DYSLIPIDEMIA, PERIPHERAL NEUROPATHY DIABETIC, CHRONIC OBSTRUCTIVE DISEASE OF THE LUNG, CAROTID ARTERY DISEASE. PATIENT PRESENTED TO THE EMERGENCY ROOM WITH A COMPLAINT OF BILATERAL LOWER EXTREMITY PAIN AND WORSENING SWELLING STATES THAT HER LEGS REMAIN SWOLLEN AT ALL TIMES BUT HAS WORSENED OVER THE PERIOD OF THE LAST 3 WEEKS OR SO, DENIES ANY SHORTNESS OF BREATH, COUGH, SPUTUM PRODUCTION, FEVERS, RIGORS, CHILLS, LIGHTHEADEDNESS, SYNCOPE, NEAR SYNCOPE, DIZZINESS, CHEST PAIN, PALPITATIONS, ORTHOPNEA OR PND. UPON PRESENTATION TO THE EMERGENCY ROOM PATIENT WAS NOTED TO HAVE LOST LOW PULSE OX PLACED ON SUPPLEMENTAL OXYGEN BY NASAL CANNULA. PRELIMINARY WORKUP WAS SIGNIFICANT FOR URINALYSIS WAS NUMEROUS WBCS PRESENT CHEMISTRY PANEL BRAIN NATRIURETIC PEPTIDE WAS 800. PATIENT HAS BEEN ADMITTED FOR FURTHER EVALUATION MANAGEMENT AND TREATMENT. EXAMINATION: XR chest 2V 05/23/2023 13:37 INDICATION: Shortness of breath PROCEDURE:? 2 view chest COMPARISON: Comparison to multiple prior studies sequentially, with oldest reviewed study dated? 06/10/2004. FINDINGS: The lungs are clear.? The cardiomediastinal silhouette is within normal limits.? There are no pleural effusions.? There is no pneumothorax suspected.? IMPRESSION: 1:? NO ACUTE CARDIOPULMONARY DISEASE. EXAMINATION:US venous doppler LE BI INDICATION:Leg swelling TECHNIQUE: Multiple grayscale, color flow and Doppler images of the right and left lower extremity deep venous systems were obtained and reviewed. COMPARISON:02/28/2023 FINDINGS: The common femoral, superficial femoral and popliteal veins demonstrate normal respiratory variation, augmentation and compressibility.? Color flow is also seen within the posterior tibial, peroneal, greater saphenous and profunda veins. IMPRESSION: 1:? No lower extremity deep venous thrombosis. Rate 58 GA 219 QRSd 108 QT 430 QTc 424 --[place]urch[place]-- P 13 QRS 46 T 35 SINUS BRADYCARDIA WITH FIRST DEGREE AV BLOCK LOW QRS VOLTAGE IN PRECORDIAL LEADS [QRS DEFLECTION < 1.0 mV IN CHEST LEADS] BORDERLINE ECG COMPARED TO ECG 02/27/2023 10:27:46 NO SIGNIFICANT DIFFERENCE Electronically Signed On 05-23-2023 15:00:38 CDT by Lennox Church Provider: Estrella Nichols Lisandro AWAD Comment [id number] - Abnormal ECG - Confirmed By: Lennox Keith MD Review of Systems Review of Systems: WORSENING LEG SWELLING, LEG PAIN. Constitutional: Constitutional: Denies chills, Denies fatigue, Denies fever(s), Denies frequent falls, Denies malaise and Denies weakness Eyes: Eyes: Denies change in vision ENT: Denies dysphagia, Denies vertigo, Denies dizziness and Denies odynophagia Cardiovascular: Cardiovascular: Denies chest pain, Denies leg ulcers, Reports leg edema, Denies lightheadedness, Denies radiating jaw, neck or arm pain, Denies palpitations and Denies dyspnea on exertion Respiratory: Respiratory: Denies chest congestion, Denies cough, Denies excessive phlegm production and Denies dyspnea Gastrointestinal: Gastrointestinal: Denies abdominal pain, Denies dyspepsia, Denies heartburn, Denies diarrhea, Denies nausea and Denies vomiting Genitourinary: Genitourinary: Denies dysuria Musculoskeletal: Musculoskeletal: Denies back pain, Denies arthralgias and Denies joint swelling Integumentary/Breasts: Skin/Breast: Denies rash Neurologic: Denies vertigo, Denies dizziness, Denies focal weakness and Denies Sensory deficit (Neuro) Psychiatric: Psychiatric: Reports no additional psychiatric complaints and Reports as per HPI Endocrine: Endocrine: Denies cold intolerance, Denies fatigue, Denies flushing, Denies heat intolerance, Denies polyphagia, Denies polydipsia and Denies palpitations Hematologic/Lymphatic: Hematologic/Ly
[2023-05-23] MEDS: ACETAMINOPHEN 500 MG TABLET 1000 MG PO (20:08)
--- NOTE | 2023-05-23 20:58 | PC.NURSE ---
neelam applied after administration of lasix @4515
[2023-05-23 21:32] LABS: Glucose Point of Care 245 mg/dl (65-105)
--- NOTE | 2023-05-23 21:34 | ADMGEN ---
This patient, Marilynn Pinon, was admitted to 2 Medical Room 242-. Patient/family oriented to hospital policies and general routines including ID bracelet, bed and alarms, visiting hours, pain management, procedures, bathroom and other care routines, personal items, smoking policy, room service/diet, and visiting hours. Information on how to activate the Rapid Response Team has been discussed. Patient/Family are encouraged to report perceived risks to care and to ask questions if they do not understand what they are told or what they should do.
[2023-05-24] VITALS (15 sets, daily range): BP systolic 114–142; BP diastolic 54–61; PULSE 51–69; RESP 14–20; TEMP 36.4–36.9; O2SAT 90–98
[2023-05-24] MEDS: ACETAMINOPHEN 500 MG TABLET 1000 MG PO ×2 (05:27→23:10)
--- NOTE | 2023-05-24 07:17 | P.PNIM_ITS ---
Progress Note: A&P Assessment and Plan (1) UTI (urinary tract infection): Code(s): N39.0 - Urinary tract infection, site not specified Status: Acute Assessment and Plan: 05/23/23: (Copied from chart) * Started on Rocephin 05/24/23: * White blood cell count 7.7 * UA positive for nitrates, 1+ leukocytes, 4+ bacteria, many urine WBC's * urine culture obtained in pending * continue with Rocephin (2) Acute hypoxic respiratory failure: Code(s): J96.01 - Acute respiratory failure with hypoxia Status: Acute Assessment and Plan: 05/23/23:(copied from chart) * On supplemental oxygen by nasal cannula * Trying keep oxygen saturation at 94% 05/24/23: * hypoxic on admission, SpO2 86-89% on room air * patient started on 2 L nasal cannula, keep sat between 88-92% as patient has history of COPD * Current every day smoker, 0.5 pack/day * albuterol inhaler ordered (3) Acute on chronic diastolic congestive heart failure: Code(s): I50.33 - Acute on chronic diastolic (congestive) heart failure Status: Acute Assessment and Plan: 05/24/23: * patient given 80 mg IV push of Lasix x1 yesterday. * Continue Coreg and lisinopril * continue aspirin 81 mg daily (4) Chronic obstructive pulmonary disease: Code(s): J44.9 - Chronic obstructive pulmonary disease, unspecified Status: Acute Assessment and Plan: 05/24/23: * Currently on 2L due to hypoxia on admission, SPO2 86-89% * Titrate to keep between 88-92% (5) Chronic hypertension: Code(s): I10 - Essential (primary) hypertension Status: Acute Assessment and Plan: 05/23/23: * Continue home meds * Continue to monitor 05/24/23: * blood pressures ranging 128/60- 154/69 * continue with amlodipine a 10 mg daily and hydralazine 25 mg t.i.d. (6) Diabetes: Code(s): E11.9 - Type 2 diabetes mellitus without complications Status: Chronic Assessment and Plan: 05/24/2023: * blood sugars currently ranging 240-269 * continue with home dose Lantus 20 units at bedtime * continue with 15 units of aspart t.i.d. with meals and at bedtime * holding metformin * moderate dose sliding scale insulin ordered for correctional (7) Hyperlipidemia: Code(s): E78.5 - Hyperlipidemia, unspecified Status: Acute Assessment and Plan: 05/24/23: * continue atorvastatin 80 mg p.o. daily * continue Plavix 75 mg daily * Will check a lipid panel Time Spent With Patient Time with patient: Greater than 35 minutes Subjective Date/time seen: 05/24/23 07:17 Interval history: 05/24/23: Interval Summary: This is a 68-year-old female who presented to the hospital with complaints of leg swelling. She has a significant past medical history of diastolic heart failure, Type II DM, obesity, dyslipidemia, peripheral neuropathy, COPD, and CAD. On arrival to the ER patient was found to be hypoxic requiring 2L NC to be placed. Hospital work up included ECG which shown sinus josé miguel with 1st degree AV block, chest x-ray negative for any acute cardiopulmonary process, and venous dopplers which were negative for DVT. Labs revealed WBC 7.7, carbon dioxide 32, BUN 12, creatinine 0.8 potassium 3.6, sodium was 139, blood glucose ranging 242- 269, liver enzymes normal. UA positive for nitrates, 1+ leukocytes, 4+ bacteria, and many urine WBC's. Urine culture was obtained. Patient given 80 of Lasix and started on Rocephin. On examination today patient is alert and oriented x4, VSS, she is afebrile, currently o
--- NOTE | 2023-05-24 07:17 | PM.IMPN ---
Progress Note: A&P Assessment and Plan (1) UTI (urinary tract infection): Code(s): N39.0 - Urinary tract infection, site not specified Status: Acute Assessment and Plan: 05/23/23: (Copied from chart) Started on Rocephin 05/24/23: White blood cell count 7.7 UA positive for nitrates, 1+ leukocytes, 4+ bacteria, many urine WBC's urine culture obtained in pending continue with Rocephin (2) Acute hypoxic respiratory failure: Code(s): J96.01 - Acute respiratory failure with hypoxia Status: Acute Assessment and Plan: 05/23/23:(copied from chart) On supplemental oxygen by nasal cannula Trying keep oxygen saturation at 94% 05/24/23: hypoxic on admission, SpO2 86-89% on room air patient started on 2 L nasal cannula, keep sat between 88-92% as patient has history of COPD Current every day smoker, 0.5 pack/day albuterol inhaler ordered (3) Acute on chronic diastolic congestive heart failure: Code(s): I50.33 - Acute on chronic diastolic (congestive) heart failure Status: Acute Assessment and Plan: 05/24/23: patient given 80 mg IV push of Lasix x1 yesterday. Continue Coreg and lisinopril continue aspirin 81 mg daily (4) Chronic obstructive pulmonary disease: Code(s): J44.9 - Chronic obstructive pulmonary disease, unspecified Status: Acute Assessment and Plan: 05/24/23: Currently on 2L due to hypoxia on admission, SPO2 86-89% Titrate to keep between 88-92% (5) Chronic hypertension: Code(s): I10 - Essential (primary) hypertension Status: Acute Assessment and Plan: 05/23/23: Continue home meds Continue to monitor 05/24/23: blood pressures ranging 128/60- 154/69 continue with amlodipine a 10 mg daily and hydralazine 25 mg t.i.d. (6) Diabetes: Code(s): E11.9 - Type 2 diabetes mellitus without complications Status: Chronic Assessment and Plan: 05/24/2023: blood sugars currently ranging 240-269 continue with home dose Lantus 20 units at bedtime continue with 15 units of aspart t.i.d. with meals and at bedtime holding metformin moderate dose sliding scale insulin ordered for correctional (7) Hyperlipidemia: Code(s): E78.5 - Hyperlipidemia, unspecified Status: Acute Assessment and Plan: 05/24/23: continue atorvastatin 80 mg p.o. daily continue Plavix 75 mg daily Will check a lipid panel Time Spent With Patient Time with patient: Greater than 35 minutes Subjective Date/time seen: 05/24/23 07:17 Interval history: 05/24/23: Interval Summary: This is a 68-year-old female who presented to the hospital with complaints of leg swelling. She has a significant past medical history of diastolic heart failure, Type II DM, obesity, dyslipidemia, peripheral neuropathy, COPD, and CAD. On arrival to the ER patient was found to be hypoxic requiring 2L NC to be placed. Hospital work up included ECG which shown sinus josé miguel with 1st degree AV block, chest x-ray negative for any acute cardiopulmonary process, and venous dopplers which were negative for DVT. Labs revealed WBC 7.7, carbon dioxide 32, BUN 12, creatinine 0.8 potassium 3.6, sodium was 139, blood glucose ranging 242-269, liver enzymes normal. UA positive for nitrates, 1+ leukocytes, 4+ bacteria, and many urine WBC's. Urine culture was obtained. Patient given 80 of Lasix and started on Rocephin. On examination today patient is alert and oriented x4, VSS, she is afebrile, currently on 2L NC. Patient does have some pain to palpation over the bladder. She denies any fevers, chills, nausea, vomiting, diarrhea,chest pain, or SOB. She denies any new complaints today. Labs today revealed WBC 7.2, absolute neutrophils 3.7, Sodium 137, potassium 3.2, chloride 101, BUN 9, creatinine 0.6, blood sugars ranging 216-272, total cholesterol 1 0 a, LDL 42, HDL 54, triglycerides 115. We will continue with Rocephin IV while
[2023-05-24 07:47] LABS: Glucose Point of Care 230 mg/dl (65-105)
[2023-05-24 08:05] LABS: Basophils Absolute Auto 0.1 K/mm3 (0.0-0.1); Basophils Percent Auto 0.8 % (0.2-1.2); Eosinophils Absolute Auto 0.3 K/mm3 (0-0.3); Eosinophils Percent Auto 3.7 % (0-4.4); Hematocrit 41.7 % (37.0-47.0); Hemoglobin 13.3 g/dL (12.0-15.0); Immature Granulocyte Absolute 0.02 K/mm3 (0.00-0.031); Immature Granulocyte Percent A 0.3 % (0-0.5); Lymphocytes Absolute Auto 2.72 K/mm3 (0.9-3.2); Lymphocytes Percent Auto 37.6 % (18.3-44.2); Mean Corpuscular HGB Conc 31.9 g/dl (32-36); Mean Platelet Volume 10.2 fl (7.4-10.4); Monocytes Absolute Auto 0.5 K/mm3 (0.1-0.6); Monocytes Percent Auto 6.4 % (2.6-8.5); Neutrophils Absolute Auto 3.7 K/mm3 (1.3-6.7); Neutrophils Percent Auto 51.2 % (45.5-73.1); Platelet Count Result 190 k/mm3 (150-375); Red Blood Count 4.58 M/mm3 (4.2-5.4); Red Cell Distribution Width 14.9 % (11.5-14.5); White Blood Count 7.2 K/mm3 (4.5-10.0)
[2023-05-24] MEDS: carvediloL 12.5 MG TABLET PO ×2 (09:34→19:52)
[2023-05-24] MEDS: amLODIPine BESYLATE 5 MG TABLET 10 MG PO (09:34)
[2023-05-24] MEDS: CLOPIDOGREL BISULFATE 75 MG TABLET PO (09:35)
[2023-05-24] MEDS: ATORVASTATIN 40 MG TABLET 80 MG PO (09:35)
[2023-05-24] MEDS: lisinopriL 20 MG TABLET 40 MG PO (09:35)
[2023-05-24] MEDS: ASPIRIN 81 MG ENTERIC TABLET PO (09:35)
[2023-05-24] MEDS: INSULIN ASPART (*BKC) 100 UNITS/ML 15 UNITS SUB-Q ×3 (09:36→17:29)
[2023-05-24] MEDS: ENOXAPARIN 40 MG/0.4 ML SYRINGE SUB-Q (09:36)
[2023-05-24] MEDS: INSULIN ASPART (*BKC) 100 UNITS/ML SUB-Q ×2 (09:37→12:09)
[2023-05-24 11:47] LABS: Glucose Point of Care 272 mg/dl (65-105)
[2023-05-24 13:29] LABS: Alanine Aminotransferase 14 U/L (6-35); Albumin Level 3.6 g/dL (3.5-5.1); Alkaline Phosphatase 42 U/L (38-126); Anion Gap 4 mmol/L (8-16); Aspartate Amino Transferase 18 U/L (14-36); Bilirubin,Total 0.5 mg/dL (0.2-1.3); Blood Urea Nitrogen 9 mg/dL (7-17); Calcium 8.6 mg/dL (8.4-10.2); Carbon Dioxide 32 mmol/L (22-30); Chloride 101 mmol/L (98-107); Cholesterol 108 mg/dL (0-200); Estimated CRCL calculation 84 ml/min; Estimated Glomerular Filt Rate > 60; Glucose 216 mg/dL (65-110); HDL Direct 54 mg/dL; Potassium 3.2 mmol/L (3.4-5.0); Sodium 137 mmol/L (137-145); Triglycerides 115 mg/dL (<150)
[2023-05-24 13:40] LABS: LDL Cholesterol Direct 42 mg/dL
[2023-05-24 16:56] LABS: Glucose Point of Care 153 mg/dl (65-105)
[2023-05-24] MEDS: ALPRAZolam (*CRX) 0.5 MG TABLET 1 MG PO ×2 (17:24→19:52)
[2023-05-24] MEDS: cefTRIAXone 2 GM/NS 100 ML 2 GM/100 ML BAG IVPB (17:25)
[2023-05-24] MEDS: INSULIN GLARGINE (*BKC) 100 UNITS/ML 20 UNITS SUB-Q (19:55)
[2023-05-24 21:58] LABS: Glucose Point of Care 176 mg/dl (65-105)
[2023-05-25] VITALS (17 sets, daily range): BP systolic 118–148; BP diastolic 49–70; PULSE 56–74; RESP 18–20; TEMP 36.1–36.9; O2SAT 92–99
[2023-05-25 05:13] LABS: Basophils Absolute Auto 0.1 K/mm3 (0.0-0.1); Basophils Percent Auto 0.8 % (0.2-1.2); Eosinophils Absolute Auto 0.3 K/mm3 (0-0.3); Eosinophils Percent Auto 4.4 % (0-4.4); Hematocrit 38.5 % (37.0-47.0); Hemoglobin 12.3 g/dL (12.0-15.0); Immature Granulocyte Absolute 0.02 K/mm3 (0.00-0.031); Immature Granulocyte Percent A 0.3 % (0-0.5); Lymphocytes Absolute Auto 3.73 K/mm3 (0.9-3.2); Lymphocytes Percent Auto 49.9 % (18.3-44.2); Mean Corpuscular HGB Conc 31.9 g/dl (32-36); Mean Corpuscular Hemoglobin 29.1 pg (26-34); Mean Corpuscular Volume 91.2 fl (80-100); Mean Platelet Volume 10.2 fl (7.4-10.4); Monocytes Absolute Auto 0.5 K/mm3 (0.1-0.6); Monocytes Percent Auto 7.1 % (2.6-8.5); Neutrophils Absolute Auto 2.8 K/mm3 (1.3-6.7); Neutrophils Percent Auto 37.5 % (45.5-73.1); Platelet Count Result 192 k/mm3 (150-375); Red Blood Count 4.22 M/mm3 (4.2-5.4); Red Cell Distribution Width 14.7 % (11.5-14.5); White Blood Count 7.5 K/mm3 (4.5-10.0)
[2023-05-25 05:23] LABS: Alanine Aminotransferase 13 U/L (6-35); Albumin Level 3.4 g/dL (3.5-5.1); Alkaline Phosphatase 38 U/L (38-126); Anion Gap 5 mmol/L (8-16); Aspartate Amino Transferase 15 U/L (14-36); Bilirubin,Total 0.5 mg/dL (0.2-1.3); Blood Urea Nitrogen 17 mg/dL (7-17); Calcium 8.4 mg/dL (8.4-10.2); Carbon Dioxide 31 mmol/L (22-30); Chloride 100 mmol/L (98-107); Estimated CRCL calculation 65 ml/min; Estimated Glomerular Filt Rate > 60; Glucose 179 mg/dL (65-110); Potassium 3.3 mmol/L (3.4-5.0); Sodium 136 mmol/L (137-145)
[2023-05-25 08:34] LABS: Glucose Point of Care 191 mg/dl (65-105)
[2023-05-25] MEDS: CLOPIDOGREL BISULFATE 75 MG TABLET PO (09:05)
[2023-05-25] MEDS: ATORVASTATIN 40 MG TABLET 80 MG PO (09:05)
[2023-05-25] MEDS: ASPIRIN 81 MG ENTERIC TABLET PO (09:05)
[2023-05-25] MEDS: ENOXAPARIN 40 MG/0.4 ML SYRINGE SUB-Q (09:07)
[2023-05-25] MEDS: INSULIN ASPART (*BKC) 100 UNITS/ML 15 UNITS SUB-Q ×3 (09:08→18:03)
[2023-05-25] MEDS: lisinopriL 20 MG TABLET 40 MG PO (09:11)
--- NOTE | 2023-05-25 09:48 | P.PNIM_ITS ---
Progress Note: A&P Assessment and Plan (1) UTI (urinary tract infection): Code(s): N39.0 - Urinary tract infection, site not specified Status: Acute Assessment and Plan: 05/23/23: (Copied from chart) * Started on Rocephin 05/24/23: * White blood cell count 7.7 * UA positive for nitrates, 1+ leukocytes, 4+ bacteria, many urine WBC's * urine culture obtained in pending * continue with Rocephin 05/25/23: * White blood cell count 7.5 * UA positive for nitrates, 1+ leukocytes, 4+ bacteria, many urine WBC's * urine culture obtained in pending * continue with Rocephin (2) Acute hypoxic respiratory failure: Code(s): J96.01 - Acute respiratory failure with hypoxia Status: Acute Assessment and Plan: 05/23/23:(copied from chart) * On supplemental oxygen by nasal cannula * Trying keep oxygen saturation at 94% 05/24/23: * hypoxic on admission, SpO2 86-89% on room air * patient started on 2 L nasal cannula, keep sat between 88-92% as patient has history of COPD * Current every day smoker, 0.5 pack/day * albuterol inhaler ordered 05/25/23: * hypoxic on admission, SpO2 86-89% on room air * patient started on 2 L nasal cannula, keep sat between 88-92% as patient has history of COPD * Current every day smoker, 0.5 pack/day * albuterol inhaler ordered (3) Acute on chronic diastolic congestive heart failure: Code(s): I50.33 - Acute on chronic diastolic (congestive) heart failure Status: Acute Assessment and Plan: 05/24/23: * patient given 80 mg IV push of Lasix x1 yesterday. * Continue Coreg and lisinopril * continue aspirin 81 mg daily 05/25/23: * patient given 80 mg IV push of Lasix x1 05/23. * Continue lisinopril * continue aspirin 81 mg daily * Coreg given parameters to hold if HR <60 as patient has been running bradycardic in the 50s * K+ 40 mEq PO ordered for K= at 3.3 (4) Chronic obstructive pulmonary disease: Code(s): J44.9 - Chronic obstructive pulmonary disease, unspecified Status: Acute Assessment and Plan: 05/25/23: * Currently on 2L due to hypoxia on admission, SPO2 86-89% * Titrate to keep between 88-92% (5) Chronic hypertension: Code(s): I10 - Essential (primary) hypertension Status: Acute Assessment and Plan: 05/23/23: * Continue home meds * Continue to monitor 05/24/23: * blood pressures ranging 128/60- 154/69 * continue with amlodipine a 10 mg daily and hydralazine 25 mg t.i.d. 05/25/23: * blood pressures ranging 128/60- 154/69 * parameters given for BP <120 and holding antihypertensives * continue with amlodipine a 10 mg daily and hydralazine 25 mg t.i.d. (6) Diabetes: Code(s): E11.9 - Type 2 diabetes mellitus without complications Status: Chronic Assessment and Plan: 05/25/2023: * blood sugars currently ranging 170s-190s today * continue with home dose Lantus 20 units at bedtime * continue with 15 units of aspart t.i.d. with meals and at bedtime * holding metformin * moderate dose sliding scale insulin ordered for correctional (7) Hyperlipidemia: Code(s): E78.5 - Hyperlipidemia, unspecified Status: Acute Assessment and Plan: 05/25/23: * continue atorvastatin 80 mg p.o. daily * continue Plavix 75 mg daily * Will check a lipid panel Subjective Date/time seen: 05/25/23 09:48 Interval history: 05/25/23: Interval Summary: This is a 68-year-old female who presented to the hospital with
--- NOTE | 2023-05-25 09:48 | PM.IMPN ---
Progress Note: A&P Assessment and Plan (1) UTI (urinary tract infection): Code(s): N39.0 - Urinary tract infection, site not specified Status: Acute Assessment and Plan: 05/23/23: (Copied from chart) Started on Rocephin 05/24/23: White blood cell count 7.7 UA positive for nitrates, 1+ leukocytes, 4+ bacteria, many urine WBC's urine culture obtained in pending continue with Rocephin 05/25/23: White blood cell count 7.5 UA positive for nitrates, 1+ leukocytes, 4+ bacteria, many urine WBC's urine culture obtained in pending continue with Rocephin (2) Acute hypoxic respiratory failure: Code(s): J96.01 - Acute respiratory failure with hypoxia Status: Acute Assessment and Plan: 05/23/23:(copied from chart) On supplemental oxygen by nasal cannula Trying keep oxygen saturation at 94% 05/24/23: hypoxic on admission, SpO2 86-89% on room air patient started on 2 L nasal cannula, keep sat between 88-92% as patient has history of COPD Current every day smoker, 0.5 pack/day albuterol inhaler ordered 05/25/23: hypoxic on admission, SpO2 86-89% on room air patient started on 2 L nasal cannula, keep sat between 88-92% as patient has history of COPD Current every day smoker, 0.5 pack/day albuterol inhaler ordered (3) Acute on chronic diastolic congestive heart failure: Code(s): I50.33 - Acute on chronic diastolic (congestive) heart failure Status: Acute Assessment and Plan: 05/24/23: patient given 80 mg IV push of Lasix x1 yesterday. Continue Coreg and lisinopril continue aspirin 81 mg daily 05/25/23: patient given 80 mg IV push of Lasix x1 05/23. Continue lisinopril continue aspirin 81 mg daily Coreg given parameters to hold if HR <60 as patient has been running bradycardic in the 50s K+ 40 mEq PO ordered for K= at 3.3 (4) Chronic obstructive pulmonary disease: Code(s): J44.9 - Chronic obstructive pulmonary disease, unspecified Status: Acute Assessment and Plan: 05/25/23: Currently on 2L due to hypoxia on admission, SPO2 86-89% Titrate to keep between 88-92% (5) Chronic hypertension: Code(s): I10 - Essential (primary) hypertension Status: Acute Assessment and Plan: 05/23/23: Continue home meds Continue to monitor 05/24/23: blood pressures ranging 128/60- 154/69 continue with amlodipine a 10 mg daily and hydralazine 25 mg t.i.d. 05/25/23: blood pressures ranging 128/60- 154/69 parameters given for BP <120 and holding antihypertensives continue with amlodipine a 10 mg daily and hydralazine 25 mg t.i.d. (6) Diabetes: Code(s): E11.9 - Type 2 diabetes mellitus without complications Status: Chronic Assessment and Plan: 05/25/2023: blood sugars currently ranging 170s-190s today continue with home dose Lantus 20 units at bedtime continue with 15 units of aspart t.i.d. with meals and at bedtime holding metformin moderate dose sliding scale insulin ordered for correctional (7) Hyperlipidemia: Code(s): E78.5 - Hyperlipidemia, unspecified Status: Acute Assessment and Plan: 05/25/23: continue atorvastatin 80 mg p.o. daily continue Plavix 75 mg daily Will check a lipid panel Subjective Date/time seen: 05/25/23 09:48 Interval history: 05/25/23: Interval Summary: This is a 68-year-old female who presented to the hospital with complaints of leg swelling. She has a significant past medical history of diastolic heart failure, Type II DM, obesity, dyslipidemia, peripheral neuropathy, COPD, and CAD. On arrival to the ER patient was found to be hypoxic requiring 2L NC to be placed. Hospital work up included ECG which shown sinus josé miguel with 1st degree AV block, chest x-ray negative for any acute cardiopulmonary process, and venous dopplers which were negative for DVT. Labs revealed WBC 7.7, carbon dioxide 32, BUN 12, creati
[2023-05-25] MEDS: POTASSIUM CHLORIDE 20 MEQ ER TABLET 40 MEQ PO (10:09)
[2023-05-25] MEDS: amLODIPine BESYLATE 5 MG TABLET 10 MG PO (10:09)
[2023-05-25 11:57] LABS: Glucose Point of Care 219 mg/dl (65-105)
[2023-05-25] MEDS: INSULIN ASPART (*BKC) 100 UNITS/ML SUB-Q ×2 (12:19→20:01)
[2023-05-25] MEDS: ALPRAZolam (*CRX) 0.5 MG TABLET 1 MG PO ×2 (13:22→20:00)
[2023-05-25] MEDS: hydrALAZINE HCL 25 MG TABLET PO ×2 (13:22→18:03)
[2023-05-25 17:10] LABS: Glucose Point of Care 162 mg/dl (65-105)
[2023-05-25] MEDS: cefTRIAXone 2 GM/NS 100 ML 2 GM/100 ML BAG IVPB (18:03)
[2023-05-25 19:55] LABS: Glucose Point of Care 248 mg/dl (65-105)
[2023-05-25] MEDS: carvediloL 12.5 MG TABLET PO (20:00)
[2023-05-25] MEDS: INSULIN GLARGINE (*BKC) 100 UNITS/ML 20 UNITS SUB-Q (20:00)
[2023-05-25] MEDS: ACETAMINOPHEN 500 MG TABLET 1000 MG PO (20:01)
[2023-05-26] VITALS (11 sets, daily range): BP systolic 144–151; BP diastolic 62–68; PULSE 54–66; RESP 18; TEMP 36.4; O2SAT 93–100
[2023-05-26 05:00] LABS: Basophils Absolute Auto 0.1 K/mm3 (0.0-0.1); Eosinophils Absolute Auto 0.3 K/mm3 (0-0.3); Eosinophils Percent Auto 4.3 % (0-4.4); Hematocrit 38.6 % (37.0-47.0); Hemoglobin 12.2 g/dL (12.0-15.0); Immature Granulocyte Absolute 0.01 K/mm3 (0.00-0.031); Immature Granulocyte Percent A 0.2 % (0-0.5); Lymphocytes Absolute Auto 2.79 K/mm3 (0.9-3.2); Lymphocytes Percent Auto 47.4 % (18.3-44.2); Mean Corpuscular HGB Conc 31.6 g/dl (32-36); Mean Corpuscular Volume 91.9 fl (80-100); Mean Platelet Volume 10.4 fl (7.4-10.4); Monocytes Absolute Auto 0.5 K/mm3 (0.1-0.6); Monocytes Percent Auto 7.7 % (2.6-8.5); Neutrophils Absolute Auto 2.3 K/mm3 (1.3-6.7); Neutrophils Percent Auto 39.4 % (45.5-73.1); Platelet Count Result 171 k/mm3 (150-375); Red Cell Distribution Width 14.8 % (11.5-14.5); White Blood Count 5.9 K/mm3 (4.5-10.0)
[2023-05-26 05:09] LABS: Alanine Aminotransferase 15 U/L (6-35); Albumin Level 3.4 g/dL (3.5-5.1); Alkaline Phosphatase 33 U/L (38-126); Anion Gap 2 mmol/L (8-16); Aspartate Amino Transferase 15 U/L (14-36); Bilirubin,Total 0.4 mg/dL (0.2-1.3); Blood Urea Nitrogen 15 mg/dL (7-17); Calcium 8.5 mg/dL (8.4-10.2); Carbon Dioxide 30 mmol/L (22-30); Chloride 104 mmol/L (98-107); Estimated CRCL calculation 99 ml/min; Estimated Glomerular Filt Rate > 60; Glucose 208 mg/dL (65-110); Potassium 4.1 mmol/L (3.4-5.0); Sodium 136 mmol/L (137-145)
[2023-05-26] MEDS: ACETAMINOPHEN 500 MG TABLET 1000 MG PO ×2 (05:43→11:57)
[2023-05-26 08:07] LABS: Glucose Point of Care 220 mg/dl (65-105)
[2023-05-26] MEDS: lisinopriL 20 MG TABLET 40 MG PO (08:25)
[2023-05-26] MEDS: CLOPIDOGREL BISULFATE 75 MG TABLET PO (08:25)
[2023-05-26] MEDS: ASPIRIN 81 MG ENTERIC TABLET PO (08:25)
[2023-05-26] MEDS: hydrALAZINE HCL 25 MG TABLET PO (08:25)
[2023-05-26] MEDS: ATORVASTATIN 40 MG TABLET 80 MG PO (08:26)
[2023-05-26] MEDS: amLODIPine BESYLATE 5 MG TABLET 10 MG PO (08:26)
[2023-05-26] MEDS: ENOXAPARIN 40 MG/0.4 ML SYRINGE SUB-Q (08:27)
[2023-05-26] MEDS: INSULIN ASPART (*BKC) 100 UNITS/ML SUB-Q (08:28)
[2023-05-26] MEDS: INSULIN ASPART (*BKC) 100 UNITS/ML 15 UNITS SUB-Q ×2 (08:28→11:57)
[2023-05-26] MEDS: carvediloL 12.5 MG TABLET PO (08:45)
[2023-05-26] MEDS: DOCUSATE SODIUM 100 MG CAPSULE PO (10:28)
[2023-05-26] MEDS: polyethylene glycoL 3350 17 GM POWD.PACK PO (10:28)
--- NOTE | 2023-05-26 11:36 | HOMEO2EVAL ---
Evaluation was performed at [facility] Home Oxygen Evaluation RC: Home Oxygen (O2) Evaluation Start: 05/26/23 08:34 Freq: ONCE Status: Active Protocol: RPE Activity Type Activity Date Activity User E-sign Co-sign Detail Recorded Client Recorded Date Recorded By Document 05/26/23 11:00 DJO [email or web address] 05/26/23 11:36 DJO Document 05/26/23 11:05 DJO [email or web address] 05/26/23 11:36 DJO Document 05/26/23 11:15 [email or web address] [email or web address] 05/26/23 11:36 DJO 05/26/23 05/26/23 05/26/23 11:00 11:05 11:15 Home O2 Evaluation [Oxygen] -Test Phase Resting Exercise Resting -Oxygen Delivery Room Air Room Air Room Air [Pulse Oximetry] -Pulse Oximetry (90-100 %) 95 93 95 [Pulse Rate] -Pulse Rate (60-100 beats/min) 56 L 66 57 L [Evaluation] -Activity Tolerance Fair [Charges] -Treatment Charges O2 Evaluation - Inpatient
--- NOTE | 2023-05-26 11:37 | PCRCNOTE ---
HOME O2 EVAL COMPLETE, NO REQUIREMENTS
[2023-05-26 11:46] LABS: Glucose Point of Care 177 mg/dl (65-105)
--- NOTE | 2023-05-26 11:53 | PM.DS ---
DS: Admitting Diagnosis Discharge Date 05/26/23 Admitting Diagnosis acute hypoxic respiratory failure DS: Discharge Diagnosis Discharge Diagnosis (1) UTI (urinary tract infection): Code(s): N39.0 - Urinary tract infection, site not specified Status: Acute Assessment and Plan: UA positive for nitrates, 1+ leukocytes, 4+ bacteria, many urine WBC's urine culture sensitive to Macrobid, will send home with 7 doses (2) Acute hypoxic respiratory failure: Code(s): J96.01 - Acute respiratory failure with hypoxia Status: Acute Assessment and Plan: hypoxic on admission, SpO2 86-89% on room air patient started on 2 L nasal cannula, keep sat between 88-92% as patient has history of COPD Current every day smoker, 0.5 pack/day albuterol inhaler ordered O2 home eval performed, no need for at home oxygen (3) Acute on chronic diastolic congestive heart failure: Code(s): I50.33 - Acute on chronic diastolic (congestive) heart failure Status: Acute Assessment and Plan: patient given 80 mg IV push of Lasix x1 05/23. Continue lisinopril continue aspirin 81 mg daily Coreg given parameters to hold if HR <60 as patient has been running bradycardic in the 50s K+replaced while inpatient (4) Chronic obstructive pulmonary disease: Code(s): J44.9 - Chronic obstructive pulmonary disease, unspecified Status: Acute (5) Chronic hypertension: Code(s): I10 - Essential (primary) hypertension Status: Acute Assessment and Plan: continue with amlodipine a 10 mg daily and hydralazine 25 mg t.i.d. (6) Diabetes: Code(s): E11.9 - Type 2 diabetes mellitus without complications Status: Chronic Assessment and Plan: blood sugars currently ranging 170s-200s today continue with home dose Lantus 20 units at bedtime continue with 15 units of aspart t.i.d. with meals and at bedtime resume metformin (7) Hyperlipidemia: Code(s): E78.5 - Hyperlipidemia, unspecified Status: Acute Assessment and Plan: continue atorvastatin 80 mg p.o. daily continue Plavix 75 mg daily DS: Summary Hospital Course Reason for hospitalization: 68 YO female presented to the hospital with complaints of leg swelling. Hospital Course: She has a significant past medical history of diastolic heart failure, Type II DM, obesity, dyslipidemia, peripheral neuropathy, COPD, and CAD. On arrival to the ER patient was found to be hypoxic requiring 2L NC to be placed. Hospital work up included ECG which shown sinus josé miguel with 1st degree AV block, chest x-ray negative for any acute cardiopulmonary process, and venous dopplers which were negative for DVT. Labs revealed WBC 7.7, carbon dioxide 32, BUN 12, creatinine 0.8 potassium 3.6, sodium was 139, blood glucose ranging 242-269, liver enzymes normal. UA positive for nitrates, 1+ leukocytes, 4+ bacteria, and many urine WBC's. Urine culture was obtained. Patient given 80 of Lasix and started on Rocephin. On examination today patient is alert and oriented x4, VS but running bradycardic in the 50s, she is afebrile, currently on 2L NC. Patient does have some pain to palpation over the abdomen. She denies any fevers, chills, nausea, vomiting, diarrhea, chest pain, or SOB. She is reporting neuropathic pain in her lower legs bilaterally. This is something she deals with daily at home. Discussed lifestyle, use of PT and blood sugar management to help alleviate these symptoms. She may follow up outpatient for medication if needed. Labs today revealed WBC stable, blood sugars 170s-200s. Will send home on Macrobid for UTI coverage. Respiratory completed O2 home evaluation to determine if she needed to return home on supplemental oxygen, but deemed no needs. She can return home, she has 2 children that help her get to and from her appointments and tend to her needs. Status at Discharge Functional status at discharge:
[2023-05-26] MEDS: NITROFURANTOIN MONOHYD MACROCR 100 MG CAP PO (11:57)
== END 2023-05-26 13:15 | disposition home or self-care (01) | DRG 291 ==
LOC: ANHED 16:14 → ANH2MED 20:35
PROVIDERS: Emergency Medicine; Nurse Practitioner Acute Care; Nurse Practitioner Family; Admitting Provider Internal Medicine; Emergency Provider Emergency Medicine; PCP Internal Medicine; Visit Provider Nurse Practitioner
DX: I11.0 Hypertensive heart disease with heart failure (principal); I50.33 Acute on chronic diastolic (congestive) heart failure; J96.01 Acute respiratory failure with hypoxia; N39.0 Urinary tract infection, site not specified; I65.22 Occlusion and stenosis of left carotid artery; J44.9 Chronic obstructive pulmonary disease, unspecified; E11.42 Type 2 diabetes mellitus with diabetic polyneuropathy; E78.5 Hyperlipidemia, unspecified; F17.210 Nicotine dependence, cigarettes, uncomplicated; F41.9 Anxiety disorder, unspecified; Z86.73 Personal history of transient ischemic attack (TIA), and cerebral infarction without residual deficits; Z79.02 Long term (current) use of antithrombotics/antiplatelets; Z79.82 Long term (current) use of aspirin; Z79.4 Long term (current) use of insulin
CPT/HCPCS: 36415; 71046; 80053; 80061; 81001; 82948; 83880; 84484; 85025; 85610; 85730; 87077; 87086; 87186; 93005; 93970; 94618; 94640; 96365; 96366; 96375; 97110; 97161; 97165; 97530; 97535; 99285; A9270; G0378; J0696; J1650; J1815; J1940

== ENCOUNTER 2023-07-20 10:01 | Inpatient (IN) | payer MEDICARE, MEDICAID, SELFPAY ==
[2023-07-20] VITALS (21 sets, daily range): BP systolic 121–143; BP diastolic 45–117; PULSE 60–78; RESP 15–26; TEMP 36.3–37; O2SAT 89–100; BMI 41.1
--- NOTE | ~2023-07-20 | XR_ITS ---
Clinical Indication: Shortness of breath AP and lateral views of the chest: Comparison: 05/23/2023 Findings: The lungs are clear, without evidence of focal consolidation or pleural effusion. Cardiome diastinal silhouette is stable, with cardiac loop recorder. Bones and soft tissues are unremarkable. Impression: Clear lungs. Reviewed, dictated and finalized at location . HEAD PUMPER Impression: Clear lungs.
--- NOTE | 2023-07-20 10:18 | ED.GENADULT ---
HPI - General Adult General Chief complaint: Extremity Problem,Nontraumatic Stated complaint: LEG SWELLING, FELL OUT OF BED THIS Source: patient Mode of arrival: EMS ([place]) History of Present Illness HPI narrative: Patient presents with extremity issue. States she probably slipped out of bed, fell on her butt; denies frankly falling. Also complaining of general swelling, shortness of breath, headache, myalgias and generalized abdominal pain. No loss of consciousness. LBM this morning without diarrhea, constipation, blood. History of COPD and CHF; not currently on O2 but states it had been recommended previously. Has had a cough productive of yellow sputum. Experienced chest pain last night that resolved. CHronic NIYAH in the setting of her underlying medical conditions. No fevers. Related Data Home Medications Medication Instructions Recorded Confirmed alprazolam 1 mg tablet 1 mg PO TID PRN Anxiety 01/14/21 07/20/23 carvedilol 12.5 mg tablet 12.5 mg PO BID 01/14/21 07/20/23 ezetimibe 10 mg tablet 10 mg PO DAILY 01/14/21 07/20/23 insulin lispro 100 unit/mL 15 unit subcut TID 08/18/21 07/20/23 subcutaneous solution (Humalog U-100 Insulin) albuterol sulfate 90 mcg/actuation 1 puff inhalation Q4H PRN 09/03/22 07/20/23 aerosol inhaler (Ventolin HFA) Shortness Of Breath amlodipine 10 mg tablet 10 mg PO DAILY 09/03/22 07/20/23 aspirin 81 mg tablet,delayed 81 mg PO DAILY 09/03/22 07/20/23 release furosemide 40 mg tablet 80 mg PO DAILY 09/03/22 07/20/23 hydralazine 25 mg tablet 25 mg PO TID 09/03/22 07/20/23 lisinopril 40 mg tablet 40 mg PO DAILY 09/03/22 07/20/23 metformin 500 mg tablet,extended 500 mg PO HS 09/03/22 07/20/23 release 24 hr insulin glargine 100 unit/mL (3 20 unit subcut HS 05/23/23 07/20/23 mL) subcutaneous pen (Lantus Solostar U-100 Insulin) Allergies Allergy/AdvReac Type Severity Reaction Status Date / Time codeine AdvReac Unknown Nausea and Verified 05/23/23 21:49 Vomiting baclofen AdvReac Nausea and Verified 05/23/23 21:49 Vomiting sulfamethoxazole AdvReac Nausea and Verified 05/23/23 21:49 [From Bactrim] Vomiting trimethoprim [From Bactrim] AdvReac Nausea and Verified 05/23/23 21:49 Vomiting PMFSH Past Medical History Medical History Anxiety Cerebrovascular accident Chronic obstructive pulmonary disease Diastolic congestive heart failure Hyperlipidemia Hypertension Insulin dependent diabetes mellitus Stenosis of left internal carotid artery Surgical History Surgical History History of cholecystectomy History of hysterectomy History of tonsillectomy Family History Family History Father Diabetes mellitus Coronary artery disease Mother Diabetes mellitus Coronary artery disease Colon cancer Sibling Diabetes mellitus Social History Social History Social History: Surrogate medical decision maker: Ellen Valenciaand, sister. Code status: Full code. Smoking packs per day: 0.5 Smoking cigarettes per day: 10.0 Years smoked: 40 Smoking pack-years: 20.00 Smoking status: Current every day smoker Second hand tobacco smoke exposure: No Alcohol intake: never Substance use: never Do You Feel Safe in your Home?: Yes Lack of Transportation: No Lack of Food: Never True Current Housing: I Have Housing Concerned About Future Housing: No Difficulty Paying Gas/Electric Bills: No Difficulty Paying for Meds: No Currently Unemployed: No Education: Grade School Difficulty w/ Childcare or Family Care: No Additional living arrangements comments: . Lives alone. Has 2 children. Additional occupation/education comments: Disabled. Spiritual care concerns: No Exam Narrative: GENERAL: Well-ap
--- NOTE | 2023-07-20 10:31 | ECG_ITS ---
Measurements Intervals [place] Rate: 67 P: 56 CO: 234 QRS: 60 QRSD: 89 T: 18 QT: 407 QTc: 431 Interpretive Statements SINUS RHYTHM WITH FIRST DEGREE AV BLOCK BASELINE ARTIFACT NONSPECIFIC ST & T-WAVE ABNORMALITY BORDERLINE ECG COMPARED TO ECG 07/20/2023 10:16:07 FIRST DEGREE AV BLOCK NOW PRESENT Electronically Signed On 07-20-2023 16:04:27 [employer] SCREED OPERATOR by Edilberto Duque M.D.
--- NOTE | 2023-07-20 10:43 | ECG_ITS ---
Measurements Intervals [place] Rate: 68 P: 18 CO: 205 QRS: 55 QRSD: 103 T: 17 QT: 416 QTc: 443 Interpretive Statements SINUS RHYTHM BASELINE ARTIFACT NONSPECIFIC T-WAVE ABNORMALITY BORDERLINE ECG COMPARED TO ECG 05/23/2023 13:13:40 SINUS RHYTHM NOW PRESENT T-WAVE ABNORMALITY NOW PRESENT Electronically Signed On 07-20-2023 15:58:24 COMMUNICATIONS SYSTEMS ENGINEER by Edilberto Duque M.D.
[2023-07-20] MEDS: SODIUM CHLORIDE 0.9% IV 1,000 ML 999 ML IV CONT (11:00)
[2023-07-20 11:07] LABS: Basophils Percent Auto 0.7 % (0.2-1.2); Eosinophils Absolute Auto 0.1 K/mm3 (0-0.3); Eosinophils Percent Auto 1.4 % (0-4.4); Hematocrit 40.5 % (37.0-47.0); Hemoglobin 13.1 g/dL (12.0-15.0); Immature Granulocyte Absolute 0.02 K/mm3 (0.00-0.031); Immature Granulocyte Percent A 0.3 % (0-0.5); Lymphocytes Absolute Auto 1.66 K/mm3 (0.9-3.2); Lymphocytes Percent Auto 28.4 % (18.3-44.2); Mean Corpuscular HGB Conc 32.3 g/dl (32-36); Mean Corpuscular Volume 92.7 fl (80-100); Mean Platelet Volume 9.6 fl (7.4-10.4); Monocytes Absolute Auto 0.7 K/mm3 (0.1-0.6); Monocytes Percent Auto 12.2 % (2.6-8.5); Neutrophils Absolute Auto 3.3 K/mm3 (1.3-6.7); Platelet Count Result 161 k/mm3 (150-375); Red Blood Count 4.37 M/mm3 (4.2-5.4); Red Cell Distribution Width 14.8 % (11.5-14.5); White Blood Count 5.8 K/mm3 (4.5-10.0)
[2023-07-20 11:19] LABS: Alanine Aminotransferase 16 U/L (6-35); Albumin Level 3.7 g/dL (3.5-5.1); Alkaline Phosphatase 43 U/L (38-126); Anion Gap 3 mmol/L (8-16); Aspartate Amino Transferase 17 U/L (14-36); Bilirubin,Total 0.8 mg/dL (0.2-1.3); Blood Urea Nitrogen 11 mg/dL (7-17); Calcium 8.8 mg/dL (8.4-10.2); Carbon Dioxide 33 mmol/L (22-30); Chloride 103 mmol/L (98-107); Creatine Kinase 71 U/L (30-135); Estimated CRCL calculation 66 ml/min; Estimated Glomerular Filt Rate > 60; Glucose 201 mg/dL (65-110); Potassium 3.7 mmol/L (3.4-5.0); Sodium 139 mmol/L (137-145)
[2023-07-20 11:27] LABS: Lipase 53 U/L (23-300)
[2023-07-20 11:28] LABS: NT Pro B Type Natriuretic Pept 1020 pg/mL (19.9-100)
[2023-07-20 11:35] LABS: D Dimer 0.47 ug/mL (<0.48)
[2023-07-20 11:37] LABS: Troponin I < 0.012 ng/mL (0.000-0.034)
[2023-07-20 11:43] LABS: Influenza A QL RT-PCR Negative (Negative); Influenza B QL RT-PCR Negative (Negative); RSV RNA, RT-PCR Negative (Negative); SARS-CoV-2 RNA PCR Positive (Negative)
--- NOTE | 2023-07-20 13:56 | PM.IMHP ---
H&P: HPI History of Present Illness Date/Time: 07/20/23 13:55 Chief Complaint: Shortness of breath, weakness. Narrative: This is a 68-year-old female smoker with history of diastolic congestive heart failure, stroke, hyperlipidemia, carotid artery disease, insulin-dependent diabetes, and chronic obstructive pulmonary disease who presented to the emergency department for evaluation of shortness of breath and weakness. The patient provides the following history. She has not been feeling well since Tuesday with generalized malaise, headache, body aches, nonproductive cough, and increasing shortness of breath from baseline. This morning she slipped while trying to get out of bed and she decided to come in for evaluation. She sustained no injuries in the fall and there was no head trauma or loss of consciousness. She was afebrile on arrival with stable blood pressures. SpO2 was as low as 89% and she is currently on 2 L nasal cannula with an SpO2 in the mid 90s. CMP and CBC were pretty unremarkable. Troponin was negative and proBNP was 1020. Chest x-ray showed no acute findings. She tested positive for SARS-CoV-2 by PCR. With further questioning she reports that her niece recently had COVID and she assumes that she picked it up from her. She denies fever, sinus congestion, sore throat, decreased appetite, nausea, vomiting, diarrhea, chest pain, and pleuritic pain. She has chronic edema which is stable. In the ED she recieved 10 mg dexamethasone and 1 L of crystalloids and she is being admitted in this setting for further treatment. Review of Systems Review of Systems: Twelve systems were reviewed and are negative except for as per HPI. [facility] Past Medical History Medical History Anxiety Cerebrovascular accident Chronic obstructive pulmonary disease Diastolic congestive heart failure Hyperlipidemia Hypertension Insulin dependent diabetes mellitus Stenosis of left internal carotid artery Surgical History Surgical History History of cholecystectomy History of hysterectomy History of tonsillectomy Family History Family History Father Diabetes mellitus Coronary artery disease Mother Diabetes mellitus Coronary artery disease Colon cancer Sibling Diabetes mellitus Social History Social History Social History: Surrogate medical decision maker: Ellen Tomlinson, sister. Code status: Full code. Smoking packs per day: 0.5 Smoking cigarettes per day: 10.0 Years smoked: 40 Smoking pack-years: 20.00 Smoking status: Current every day smoker Second hand tobacco smoke exposure: No Alcohol intake: never Substance use: never Do You Feel Safe in your Home?: Yes Lack of Transportation: No Lack of Food: Never True Current Housing: I Have Housing Concerned About Future Housing: No Difficulty Paying Gas/Electric Bills: No Difficulty Paying for Meds: No Currently Unemployed: No Education: Grade School Difficulty w/ Childcare or Family Care: No Additional living arrangements comments: . Lives alone. Has 2 children. Additional occupation/education comments: Disabled. Spiritual care concerns: No Meds Home Medications and Allergies Home Medications Medication Instructions Recorded Confirmed Type alprazolam 1 mg tablet 1 mg PO TID PRN Anxiety 01/14/21 07/20/23 History carvedilol 12.5 mg tablet 12.5 mg PO BID 01/14/21 07/20/23 History ezetimibe 10 mg tablet 10 mg PO DAILY 01/14/21 07/20/23 History blood sugar diagnostic (Contour #[id number] ea 01/22/21 07/20/23 Rx Next Test Strips) insulin lispro 100 unit/mL 15 unit subcut TID 08/18/21 07/20/23 History subcutaneous solution (Humalog U-100 Insulin) albuterol sulfate 90 mcg/actuation 1 puff inhalation Q4H UT
[2023-07-20] MEDS: ACETAMINOPHEN 325 MG TABLET 650 MG PO ×2 (15:16→21:44)
[2023-07-20 16:49] LABS: Glucose Point of Care 335 mg/dl (65-105)
[2023-07-20] MEDS: hydrALAZINE HCL 25 MG TABLET PO (17:31)
[2023-07-20] MEDS: carvediloL 12.5 MG TABLET PO (17:31)
[2023-07-20] MEDS: INSULIN ASPART (*BKC) 100 UNITS/ML 15 UNITS SUB-Q (17:32)
[2023-07-20] MEDS: ALPRAZolam (*CRX) 0.5 MG TABLET 1 MG PO ×2 (17:37→23:19)
[2023-07-20 20:08] LABS: Glucose Point of Care 415 mg/dl (65-105)
[2023-07-20] MEDS: INSULIN GLARGINE (*BKC) 100 UNITS/ML 20 UNITS SUB-Q (21:35)
[2023-07-20] MEDS: REMDESIVIR 200 MG/NS 250 ML 200 MG/250 ML BAG 250 MG IVPB (21:35)
[2023-07-20 21:37] LABS: Prothrombin Time 13.9 Seconds (11.1-14.7)
[2023-07-20] MEDS: INSULIN ASPART (*BKC) 100 UNITS/ML 12 UNITS SUB-Q (23:11)
[2023-07-21] VITALS (8 sets, daily range): BP systolic 122–141; BP diastolic 45–66; PULSE 61–69; RESP 18–20; TEMP 35.8–36.6; O2SAT 97–98
[2023-07-21 04:57] LABS: Hematocrit 39.2 % (37.0-47.0); Hemoglobin 12.5 g/dL (12.0-15.0); Mean Corpuscular HGB Conc 31.9 g/dl (32-36); Mean Corpuscular Volume 94.2 fl (80-100); Mean Platelet Volume 10.5 fl (7.4-10.4); Platelet Count Result 174 k/mm3 (150-375); Red Blood Count 4.16 M/mm3 (4.2-5.4); Red Cell Distribution Width 14.4 % (11.5-14.5)
[2023-07-21 05:35] LABS: Alanine Aminotransferase 15 U/L (6-35); Albumin Level 3.6 g/dL (3.5-5.1); Alkaline Phosphatase 45 U/L (38-126); Anion Gap 5 mmol/L (8-16); Aspartate Amino Transferase 16 U/L (14-36); Bilirubin,Total 0.5 mg/dL (0.2-1.3); Blood Urea Nitrogen 17 mg/dL (7-17); CRP 1.1 mg/dL (<1.0); Calcium 8.3 mg/dL (8.4-10.2); Carbon Dioxide 33 mmol/L (22-30); Chloride 98 mmol/L (98-107); Estimated CRCL calculation 54 ml/min; Estimated Glomerular Filt Rate 55; Glucose 339 mg/dL (65-110); Magnesium 2.2 mg/dL (1.6-2.3); Potassium 4.4 mmol/L (3.4-5.0); Sodium 136 mmol/L (137-145)
[2023-07-21 06:10] LABS: Lactate Dehydrogenase 182 U/L (120-246)
[2023-07-21 08:12] LABS: Glucose Point of Care 317 mg/dl (65-105)
[2023-07-21] MEDS: DEXAMETHASONE 2 MG TABLET 6 MG PO (09:19)
[2023-07-21] MEDS: EZETIMIBE 10 MG TABLET PO (09:19)
[2023-07-21] MEDS: CLOPIDOGREL BISULFATE 75 MG TABLET PO (09:20)
[2023-07-21] MEDS: ASPIRIN 81 MG ENTERIC TABLET PO (09:20)
[2023-07-21] MEDS: ATORVASTATIN 40 MG TABLET 80 MG PO (09:20)
[2023-07-21] MEDS: lisinopriL 20 MG TABLET 40 MG PO (09:20)
[2023-07-21] MEDS: FUROSEMIDE 40 MG TABLET 80 MG PO (09:20)
[2023-07-21] MEDS: amLODIPine BESYLATE 5 MG TABLET 10 MG PO (09:20)
[2023-07-21] MEDS: hydrALAZINE HCL 25 MG TABLET PO ×3 (09:21→17:34)
[2023-07-21] MEDS: carvediloL 12.5 MG TABLET PO ×2 (09:21→17:34)
[2023-07-21] MEDS: INSULIN ASPART (*BKC) 100 UNITS/ML 15 UNITS SUB-Q ×3 (09:25→17:36)
[2023-07-21 12:15] LABS: Glucose Point of Care > 500 mg/dl (65-105)
[2023-07-21] MEDS: INSULIN ASPART (*BKC) 100 UNITS/ML 10 UNITS SUB-Q (12:39)
[2023-07-21] MEDS: ALPRAZolam (*CRX) 0.5 MG TABLET 1 MG PO ×2 (13:02→23:31)
--- NOTE | 2023-07-21 14:56 | PM.IMPN ---
Progress Note: A&P Assessment and Plan (1) Acute hypoxic respiratory failure: Code(s): J96.01 - Acute respiratory failure with hypoxia Status: Acute Assessment and Plan: Likely due to COVID and underlying, chronic COPD. Chest x-ray showed no evidence of consolidation or effusion. Pulmonary embolism seems less likely (very recent venous Doppler ultrasounds were negative for DVT). Wean oxygen as tolerated. (2) COVID: Code(s): U07.1 - COVID-19 Status: Acute Assessment and Plan: Patient was exposed to her niece who had COVID and tested positive today. Dexamethasone and remdesivir daily until discharge due to oxygen requirement and high risk for adverse outcome. Albuterol and ipratropium inhalers scheduled Initiate isolation precautions per protocol. (3) Chronic obstructive pulmonary disease: Code(s): J44.9 - Chronic obstructive pulmonary disease, unspecified Status: Acute Assessment and Plan: No evidence to suggest exacerbation. Continue maintenance inhalers. (4) Insulin dependent diabetes mellitus: Status: Acute Assessment and Plan: Hemoglobin A1c was 9.4% in January 2023. Fasting glucose today was 201. Continue basal insulin. Initiate sliding scale insulin, Accu-Cheks, and hypoglycemic protocol. (5) Suspected sleep apnea: Code(s): R29.818 - Other symptoms and signs involving the nervous system Status: Acute Assessment and Plan: ApneaLink and March 2023 showed suspected pathological breathing disorder with an AHI of 26. Patient is a formal outpatient sleep study. Subjective Date/time seen: 07/21/23 14:56 Interval history: Patient doing well today. She denies any difficulties breathing. States that she does not wear oxygen at home although she is a current smoker and admits to approximately 5 cigarettes daily. She has very uncontrolled diabetes and might need insulin adjustments while in the hospital. Inhalers were added to patient's treatment regimen. Patient does have some distant lung zones and bibasilar wheezing Exam Narrative: GENERAL: Comfortable, no acute distress HENMT: moist mucous membranes EYES: EOM intact b/l NECK: no lymphadenopathy RESPIRATORY: bibasilar wheezing CARDIO: RRR GI: soft, nontender, bowel sounds present SKIN: no rashes EXTREMITIES: +1 pedal edema Objective Data Vital Signs Vital Signs: Vital Signs - 24 hr 07/20/23 16:59 07/20/23 17:31 07/20/23 21:20 Temperature 98.6 F Pulse Rate 66 66 66 Respiratory Rate 18 17 Blood Pressure 121/45 L Pulse Oximetry 94 94 Oxygen Delivery Nasal Cannula Oxygen Flow Rate 4 07/20/23 21:25 07/21/23 05:17 07/21/23 09:21 Temperature 97.6 F Pulse Rate 62 63 Respiratory Rate 20 Blood Pressure 124/49 L Pulse Oximetry 94 98 Oxygen Delivery Nasal Cannula Oxygen Flow Rate 4 07/21/23 09:22 07/21/23 08:00 07/21/23 13:34 Temperature 97.9 F Pulse Rate 69 63 Respiratory Rate 20 Blood Pressure 130/66 141/63 H Pulse Oximetry 97 97 97 Oxygen Delivery Nasal Cannula Oxygen Flow Rate 3 Intake/Output Intake/Output: Intake & Output 07/18/23 07/19/23 07/20/23 07/21/23 23:59 23:59 23:59 23:59 Intake Total 440 590 Output Total 600 Balance 440 -10 Meds/Results Medications: Active Medications Generic Name Dose Route Start Last Admin Trade Name Freq PRN Reason Stop Dose Admin Acetaminophen 650 mg 07/20/23 12:53 07/20/23 21:44 Acetaminophen 325 Mg Tablet PO 650 mg Q4H PRN Administration Mild Pain (1-3) or Fever Albuterol 1 puff 07/20/23 16:56 Albuterol Sulfate (*Sp) Aerosol 1 Puff INHALATION Q4H PRN Shortness Of Breath Alprazolam 1 mg 07/20/23 16:56 07/21/23 13:02 Alprazolam (*Crx) 0.5 Mg Tablet PO 1 mg TID PRN Administration Anxiety Amlodipine Besylate 10 mg 07/21/23 09:00 07/21/23 09:20 Amlodipine Besylate 5 Mg Ta
[2023-07-21 17:34] LABS: Glucose Point of Care 271 mg/dl (65-105)
[2023-07-21] MEDS: REMDESIVIR 100 MG/NS 250 ML 100 MG/250 ML BAG 250 MG IVPB (21:52)
[2023-07-21] MEDS: INSULIN GLARGINE (*BKC) 100 UNITS/ML 20 UNITS SUB-Q (21:53)
[2023-07-21] MEDS: INSULIN ASPART (*BKC) 100 UNITS/ML SUB-Q (21:57)
[2023-07-21] MEDS: ACETAMINOPHEN 325 MG TABLET 650 MG PO (22:08)
[2023-07-21 22:17] LABS: Glucose Point of Care 370 mg/dl (65-105)
--- NOTE | 2023-07-21 23:06 | PCRCNOTE ---
Window of time for administration has passed. See next scheduled administration.
[2023-07-22] VITALS (11 sets, daily range): BP systolic 119–141; BP diastolic 39–58; PULSE 50–62; RESP 12–20; TEMP 35.8–36.9; O2SAT 93–98
[2023-07-22] MEDS: ALBUTEROL SULFATE (*SP) AEROSOL 1 PUFF INHALATION (03:55)
[2023-07-22 06:04] LABS: Hemoglobin 12.7 g/dL (12.0-15.0); Mean Corpuscular HGB Conc 31.8 g/dl (32-36); Mean Corpuscular Volume 94.3 fl (80-100); Mean Platelet Volume 10.8 fl (7.4-10.4); Platelet Count Result 171 k/mm3 (150-375); Red Blood Count 4.24 M/mm3 (4.2-5.4); Red Cell Distribution Width 14.6 % (11.5-14.5); White Blood Count 7.2 K/mm3 (4.5-10.0)
[2023-07-22 06:13] LABS: Prothrombin Time 13.6 Seconds (11.1-14.7)
[2023-07-22 06:25] LABS: Alanine Aminotransferase 14 U/L (6-35); Albumin Level 3.5 g/dL (3.5-5.1); Alkaline Phosphatase 40 U/L (38-126); Anion Gap 2 mmol/L (8-16); Aspartate Amino Transferase 17 U/L (14-36); Bilirubin,Total 0.4 mg/dL (0.2-1.3); Blood Urea Nitrogen 30 mg/dL (7-17); Calcium 8.6 mg/dL (8.4-10.2); Carbon Dioxide 33 mmol/L (22-30); Chloride 97 mmol/L (98-107); Estimated CRCL calculation 68 ml/min; Estimated Glomerular Filt Rate > 60; Glucose 322 mg/dL (65-110); Potassium 4.7 mmol/L (3.4-5.0); Sodium 132 mmol/L (137-145)
[2023-07-22 08:06] LABS: Glucose Point of Care 277 mg/dl (65-105)
[2023-07-22] MEDS: EZETIMIBE 10 MG TABLET PO (08:18)
[2023-07-22] MEDS: DEXAMETHASONE 2 MG TABLET 6 MG PO (08:18)
[2023-07-22] MEDS: FUROSEMIDE 40 MG TABLET 80 MG PO (08:18)
[2023-07-22] MEDS: ATORVASTATIN 40 MG TABLET 80 MG PO (08:18)
[2023-07-22] MEDS: amLODIPine BESYLATE 5 MG TABLET 10 MG PO (08:18)
[2023-07-22] MEDS: CLOPIDOGREL BISULFATE 75 MG TABLET PO (08:18)
[2023-07-22] MEDS: carvediloL 12.5 MG TABLET PO ×2 (08:19→17:01)
[2023-07-22] MEDS: ASPIRIN 81 MG ENTERIC TABLET PO (08:19)
[2023-07-22] MEDS: lisinopriL 20 MG TABLET 40 MG PO (08:19)
[2023-07-22] MEDS: hydrALAZINE HCL 25 MG TABLET PO ×3 (08:19→17:01)
[2023-07-22] MEDS: INSULIN ASPART (*BKC) 100 UNITS/ML 15 UNITS SUB-Q ×4 (08:19→17:01)
[2023-07-22] MEDS: ALBUTEROL SULFATE (*SP) INHALER 2 PUFF INHALATION ×2 (09:12→20:36)
[2023-07-22 11:52] LABS: Glucose Point of Care 438 mg/dl (65-105)
--- NOTE | 2023-07-22 12:00 | PM.IMPN ---
Progress Note: A&P Assessment and Plan (1) Acute hypoxic respiratory failure: Code(s): J96.01 - Acute respiratory failure with hypoxia Status: Acute Assessment and Plan: Likely due to COVID and underlying, chronic COPD. Chest x-ray showed no evidence of consolidation or effusion. Pulmonary embolism seems less likely (very recent venous Doppler ultrasounds were negative for DVT). Patient requiring 2 L of oxygen. Wean oxygen as tolerated. (2) COVID: Code(s): U07.1 - COVID-19 Status: Acute Assessment and Plan: Patient was exposed to her niece who had COVID and tested positive today. Dexamethasone and remdesivir daily until discharge due to oxygen requirement and high risk for adverse outcome. Albuterol and ipratropium inhalers scheduled Initiate isolation precautions per protocol. (3) Chronic obstructive pulmonary disease: Code(s): J44.9 - Chronic obstructive pulmonary disease, unspecified Status: Acute Assessment and Plan: No evidence to suggest exacerbation. Continue maintenance inhalers. (4) Insulin dependent diabetes mellitus: Status: Acute Assessment and Plan: Hemoglobin A1c was 9.4% in January 2023. Fasting glucose today was 201. Continue basal insulin. Initiate sliding scale insulin, Accu-Cheks, and hypoglycemic protocol. (5) Suspected sleep apnea: Code(s): R29.818 - Other symptoms and signs involving the nervous system Status: Acute Assessment and Plan: ApneaLink and March 2023 showed suspected pathological breathing disorder with an AHI of 26. Patient is a formal outpatient sleep study. Subjective Date/time seen: 07/22/23 12:00 Interval history: Patient doing well today still requiring oxygen this time. Encouraged nursing staff to wean oxygen on the patient. Patient to work with therapy today. Patient states she is not short of breath and does have any difficulties breathing either. She is eating well. Once patient can be weaned off oxygen she should be able to discharge. Exam Narrative: GENERAL: Comfortable, no acute distress HENMT: moist mucous membranes EYES: EOM intact b/l NECK: no lymphadenopathy RESPIRATORY: bibasilar wheezing CARDIO: RRR - distant heart sounds. GI: soft, nontender, bowel sounds present SKIN: no rashes EXTREMITIES: No edema Objective Data Vital Signs Vital Signs: Vital Signs - 24 hr 07/21/23 13:34 07/21/23 17:34 07/21/23 21:55 Temperature 97.9 F 96.4 F L Pulse Rate 63 63 61 Respiratory Rate 20 18 Blood Pressure 141/63 H 122/45 L Pulse Oximetry 97 97 Oxygen Delivery Oxygen Flow Rate 07/21/23 21:40 07/22/23 03:56 07/22/23 04:51 Temperature 96.5 F L Pulse Rate 50 L Respiratory Rate 18 20 Blood Pressure 139/58 L Pulse Oximetry 97 98 Oxygen Delivery Nasal Cannula Oxygen Flow Rate 3 07/22/23 08:50 07/22/23 08:50 07/22/23 09:14 Temperature 97.1 F L Pulse Rate 58 L 52 L Respiratory Rate 16 Blood Pressure 134/47 L Pulse Oximetry 96 Oxygen Delivery Nasal Cannula Oxygen Flow Rate 2 07/22/23 08:35 Temperature Pulse Rate Respiratory Rate Blood Pressure Pulse Oximetry 94 Oxygen Delivery Nasal Cannula Oxygen Flow Rate 2 Intake/Output Intake/Output: Intake & Output 07/19/23 07/20/23 07/21/23 07/22/23 23:59 23:59 23:59 23:59 Intake Total 440 1080 Output Total 1300 1200 Balance 440 -220 -1200 Meds/Results Medications: Active Medications Generic Name Dose Route Start Last Admin Trade Name Freq PRN Reason Stop Dose Admin Acetaminophen 650 mg 07/20/23 12:53 07/21/23 22:08 Acetaminophen 325 Mg Tablet PO 650 mg Q4H PRN Administration Mild Pain (1-3) or Fever Albuterol 1 puff 07/20/23 16:56 07/22/23 03:55 Albuterol Sulfate (*Sp) Aerosol 1 Puff INHALATION 1 puff Q4H PRN Administration Shortness Of Breath Albuterol 2 puff
[2023-07-22] MEDS: INSULIN ASPART (*BKC) 100 UNITS/ML SUB-Q ×4 (12:09→20:54)
[2023-07-22 16:52] LABS: Glucose Point of Care 343 mg/dl (65-105)
[2023-07-22] MEDS: ALPRAZolam (*CRX) 0.5 MG TABLET 1 MG PO ×2 (17:07→22:16)
[2023-07-22] MEDS: INSULIN GLARGINE (*BKC) 100 UNITS/ML 30 UNITS SUB-Q (20:54)
[2023-07-22] MEDS: REMDESIVIR 100 MG/NS 250 ML 100 MG/250 ML BAG 250 MG IVPB (20:59)
[2023-07-22 22:16] LABS: Glucose Point of Care 403 mg/dl (65-105)
[2023-07-22 22:16] LABS: Glucose Point of Care 349 mg/dl (65-105)
[2023-07-23 01:18] VITALS: PULSE 52; RESP 16
[2023-07-23] MEDS: ALBUTEROL SULFATE (*SP) INHALER 2 PUFF INHALATION ×2 (01:18→07:39)
[2023-07-23 02:59] VITALS: BP 157/54; PULSE 58; RESP 20; TEMP 36.3; O2SAT 95
[2023-07-23 05:49] LABS: Hematocrit 38.8 % (37.0-47.0); Hemoglobin 12.7 g/dL (12.0-15.0); Mean Corpuscular HGB Conc 32.7 g/dl (32-36); Mean Corpuscular Hemoglobin 29.8 pg (26-34); Mean Corpuscular Volume 91.1 fl (80-100); Mean Platelet Volume 10.7 fl (7.4-10.4); Platelet Count Result 184 k/mm3 (150-375); Red Blood Count 4.26 M/mm3 (4.2-5.4); Red Cell Distribution Width 14.4 % (11.5-14.5); White Blood Count 6.8 K/mm3 (4.5-10.0)
[2023-07-23 05:56] LABS: Alanine Aminotransferase 14 U/L (6-35); Albumin Level 3.3 g/dL (3.5-5.1); Alkaline Phosphatase 41 U/L (38-126); Anion Gap 7 mmol/L (8-16); Aspartate Amino Transferase 13 U/L (14-36); Bilirubin,Total 0.4 mg/dL (0.2-1.3); Blood Urea Nitrogen 32 mg/dL (7-17); Calcium 8.2 mg/dL (8.4-10.2); Carbon Dioxide 32 mmol/L (22-30); Chloride 95 mmol/L (98-107); Estimated CRCL calculation 69 ml/min; Estimated Glomerular Filt Rate > 60; Glucose 274 mg/dL (65-110); Potassium 4.3 mmol/L (3.4-5.0); Sodium 134 mmol/L (137-145)
[2023-07-23 07:39] VITALS: PULSE 55; RESP 16; O2SAT 92
[2023-07-23 08:01] LABS: Glucose Point of Care 253 mg/dl (65-105)
[2023-07-23] MEDS: FUROSEMIDE 40 MG TABLET 80 MG PO (08:20)
[2023-07-23] MEDS: DEXAMETHASONE 2 MG TABLET 6 MG PO (08:20)
[2023-07-23] MEDS: ATORVASTATIN 40 MG TABLET 80 MG PO (08:20)
[2023-07-23 08:21] VITALS: PULSE 62
[2023-07-23] MEDS: hydrALAZINE HCL 25 MG TABLET PO ×2 (08:21→12:27)
[2023-07-23] MEDS: lisinopriL 20 MG TABLET 40 MG PO (08:21)
[2023-07-23] MEDS: EZETIMIBE 10 MG TABLET PO (08:21)
[2023-07-23] MEDS: carvediloL 12.5 MG TABLET PO (08:21)
[2023-07-23] MEDS: CLOPIDOGREL BISULFATE 75 MG TABLET PO (08:21)
[2023-07-23] MEDS: ASPIRIN 81 MG ENTERIC TABLET PO (08:21)
[2023-07-23] MEDS: amLODIPine BESYLATE 5 MG TABLET 10 MG PO (08:21)
[2023-07-23] MEDS: INSULIN ASPART (*BKC) 100 UNITS/ML 15 UNITS SUB-Q ×2 (08:22→12:27)
[2023-07-23] MEDS: INSULIN ASPART (*BKC) 100 UNITS/ML SUB-Q ×2 (08:22→12:27)
[2023-07-23 08:30] VITALS: O2SAT 92
[2023-07-23 12:02] LABS: Glucose Point of Care 335 mg/dl (65-105)
--- NOTE | 2023-07-23 12:42 | PM.DS ---
DS: Admitting Diagnosis Discharge Date 07/23/23 Admitting Diagnosis COVID-19, hypoxia DS: Discharge Diagnosis Discharge Diagnosis (1) Acute hypoxic respiratory failure: Code(s): J96.01 - Acute respiratory failure with hypoxia Status: Acute (2) COVID: Code(s): U07.1 - COVID-19 Status: Acute (3) Chronic obstructive pulmonary disease: Code(s): J44.9 - Chronic obstructive pulmonary disease, unspecified Status: Acute (4) Insulin dependent diabetes mellitus: Status: Acute (5) Suspected sleep apnea: Code(s): R29.818 - Other symptoms and signs involving the nervous system Status: Acute DS: Summary Hospital Course Hospital Course: This is a 68-year-old female with a past medical history of diastolic CHF, stroke, hyperlipidemia, CAD, insulin-dependent diabetes, COPD and current every day smoker that presented to the ED on 07/20/2023 due to shortness of breath and weakness. Patient was found to have a SBO to as low as 89% and was started on 2 L nasal cannula. Her troponin was negative and her proBNP was 1020. Chest x-ray with no acute findings. She tested positive for COVID. Due to oxygen demand she was started on 10 mg g of dexamethasone and remdesivir. Patient's oxygen was slowly titrated down. She received 3 doses of remdesivir while in the hospital. Patient's lung sounds improved. Patient was able to be weaned off of oxygen. Smoking cessation was encouraged. Will give patient inhalers to go home on as well as completion of steroids. Advised to check blood sugars and adjust insulin accordingly due to being on steroid therapy. Her labs and vital signs are stable and she is medically cleared for discharge at this time. Time Spent with Patient Time attestation: Total time spent providing and/or coordinating discharge services: Exam Narrative: GENERAL: Comfortable, no acute distress HENMT: moist mucous membranes EYES: EOM intact b/l NECK: no lymphadenopathy RESPIRATORY: Clear to auscultation CARDIO: RRR - distant heart sounds. GI: soft, nontender, bowel sounds present SKIN: no rashes EXTREMITIES: No edema DS: Data Data Completed and Pending Labs on day of discharge: Labs from last 24 hours 07/23/23 07/23/23 07/23/23 11:50 07:50 04:58 WBC 6.8 RBC 4.26 Hgb 12.7 Hct 38.8 MCV 91.1 MCH 29.8 MCHC 32.7 RDW 14.4 Plt Count 184 MPV 10.7 H Sodium 134 L Potassium 4.3 Chloride 95 L Carbon Dioxide 32 H Anion Gap 7 L BUN 32 H Creatinine 0.80 Estim Creat Clear Calc 69 Estimated GFR > 60 Glucose 274 H POC Capillary Glucose 335 H 253 H Calcium 8.2 L Total Bilirubin 0.4 AST 13 L ALT 14 Alkaline Phosphatase 41 Total Protein 6.0 L Albumin 3.3 L 07/22/23 07/22/23 07/22/23 22:11 20:28 16:43 WBC RBC Hgb Hct MCV MCH MCHC RDW Plt Count MPV Sodium Potassium Chloride Carbon Dioxide Anion Gap BUN Creatinine Estim Creat Clear Calc Estimated GFR Glucose POC Capillary Glucose 349 H 403 H 343 H Calcium Total Bilirubin AST ALT Alkaline Phosphatase Total Protein Albumin Discharge Plan Discharge Attending physician on discharge: Cherie Damon Discharging Clinician: Cherie Damon Patient Disposition: Home Health Service Activity: as tolerated Diet: diabetic Discharge Instructions: Per Care Coordination Patient has been accepted to have [facility] for RN, PT, OT [phone] RN please fax completed discharge instructions to [phone] Medications: Dexamethasone daily through 07/30/2023 Albuterol and ipratropium every 4-6 hours as needed Encourage smoking cessation Take all medications as prescribed even if feeling better Wear a mask in public, and stay away from large crowds Eat well balanced meals and stay hydrate
[2023-07-23] MEDS: ALPRAZolam (*CRX) 0.5 MG TABLET 1 MG PO (13:41)
== END 2023-07-23 14:20 | disposition home health service (06) | DRG 177 ==
LOC: ANHED 10:38 → ANH2MED 13:17
PROVIDERS: Physician Assistant; Admitting Provider General Practice; Emergency Provider Student in an Organized Health Care Education/Training Program; PCP Internal Medicine; Visit Provider Internal Medicine Critical Care Medicine
DX: U07.1 COVID-19 (principal); J96.01 Acute respiratory failure with hypoxia; I50.32 Chronic diastolic (congestive) heart failure; E78.5 Hyperlipidemia, unspecified; E11.9 Type 2 diabetes mellitus without complications; F17.210 Nicotine dependence, cigarettes, uncomplicated; J44.9 Chronic obstructive pulmonary disease, unspecified; W06.XXXA Fall from bed, initial encounter; G47.30 Sleep apnea, unspecified; F41.9 Anxiety disorder, unspecified; I11.0 Hypertensive heart disease with heart failure; I65.22 Occlusion and stenosis of left carotid artery; Z90.49 Acquired absence of other specified parts of digestive tract; Z86.73 Personal history of transient ischemic attack (TIA), and cerebral infarction without residual deficits; Z90.710 Acquired absence of both cervix and uterus; Z79.84 Long term (current) use of oral hypoglycemic drugs; Z79.4 Long term (current) use of insulin; Z79.82 Long term (current) use of aspirin
CPT/HCPCS: 36415; 71046; 80053; 82248; 82550; 82728; 82948; 83615; 83690; 83735; 83880; 84484; 85025; 85027; 85380; 85610; 86140; 87637; 93005; 94640; 96361; 96374; 97161; 97166; 99285; A9270; G0378; J0248; J1100; J1815; J7030; J8540

== ENCOUNTER 2023-09-14 18:10 | Emergency (ER) | payer MEDICARE, MEDICAID, SELFPAY ==
[2023-09-14] VITALS (7 sets, daily range): BP systolic 113–156; BP diastolic 48–75; PULSE 62–75; RESP 14–20; TEMP 36.4; O2SAT 94–100
--- NOTE | ~2023-09-14 | XR_ITS ---
EXAMINATION: XR chest 2V DATE: 09/14/2023 20:35 INDICATION: Dyspnea TECHNIQUE: frontal and lateral views of the chest were obtained. COMPARISON: Chest radiograph dated 07/20/2023 FINDINGS: The lungs remain clear with no focal airspace opacities, pulmonary edema, pleural effusion or pneumot horax. The cardiomediastinal silhouette is normal. Left pectoral implantable cardiac technician. Cholecy stectomy clips in right upper quadrant. Mild thoracic kyphosis with moderate spondylosis. IMPRESSION: 1. No acute cardiopulmonary disease. Reviewed, dictated and finalized at location A. [employer] WORKER
--- NOTE | 2023-09-14 19:31 | ECG_ITS ---
Measurements Intervals [place] Rate: 64 P: 14 WI: 226 QRS: 43 QRSD: 94 T: 41 QT: 428 QTc: 444 Interpretive Statements SINUS RHYTHM WITH FIRST DEGREE AV BLOCK LOW QRS VOLTAGE IN EXTREMITY LEADS [QRS DEFLECTION < 0.5 mV IN LIMB LEADS] POOR R-WAVE PROGRESSION ABNORMAL ECG COMPARED TO ECG 07/20/2023 10:31:45 NO SIGNIFICANT CHANGES Electronically Signed On 09-15-2023 12:37:54 QA TESTER by Tito Buchanan M.D.
--- NOTE | 2023-09-14 19:43 | ED.SOB ---
HPI - SOB/Dyspnea General Chief Complaint: Shortness of Breath/Dyspnea Stated Complaint: SOB Time Seen by Provider: 09/14/23 19:27 Source: patient and family Limitations: no limitations History of Present Illness HPI Narrative: Patient is a 68-year-old female presents to the emergency department complaining of difficulty breathing, cough, body aches. Patient states she has been dealing with a cold with congestion and a cough body aches for the past 1 week and has gone away, notes that the cough is productive of yellow to green appearing sputum and she has also been having some difficulty breathing with it as of late. Patient admits to history of COPD and has tried her inhaler at home with only slight relief. Patient denies any known sick contacts. Patient denies history of blood clots or unilateral lower extremity swelling. Patient denies any recent steroid use. Patient admits to recent antibiotic use in which she completed a course of antibiotics a couple days ago for this upper respiratory type infection. Patient denies melena, hematochezia, chest pain, abdominal pain, nausea, vomiting, urinary discomfort, rash, sore throat, confusion. Patient denies wearing oxygen regular basis. Patient admits to history of poor circulation in her lower extremities. Patient admits to urinary frequency However she is on furosemide. Related Data Home Medications Medication Instructions Recorded Confirmed alprazolam 1 mg tablet 1 mg PO TID PRN Anxiety 01/14/21 07/20/23 carvedilol 12.5 mg tablet 12.5 mg PO BID 01/14/21 07/20/23 ezetimibe 10 mg tablet 10 mg PO DAILY 01/14/21 07/20/23 insulin lispro 100 unit/mL 15 unit subcut TID 08/18/21 07/20/23 subcutaneous solution (Humalog U-100 Insulin) albuterol sulfate 90 mcg/actuation 1 puff inhalation Q4H PRN 09/03/22 07/20/23 aerosol inhaler (Ventolin HFA) Shortness Of Breath amlodipine 10 mg tablet 10 mg PO DAILY 09/03/22 07/20/23 aspirin 81 mg tablet,delayed 81 mg PO DAILY 09/03/22 07/20/23 release furosemide 40 mg tablet 80 mg PO DAILY 09/03/22 07/20/23 hydralazine 25 mg tablet 25 mg PO TID 09/03/22 07/20/23 lisinopril 40 mg tablet 40 mg PO DAILY 09/03/22 07/20/23 metformin 500 mg tablet,extended 500 mg PO HS 09/03/22 07/20/23 release 24 hr insulin glargine 100 unit/mL (3 20 unit subcut HS 05/23/23 07/20/23 mL) subcutaneous pen (Lantus Solostar U-100 Insulin) Allergies Allergy/AdvReac Type Severity Reaction Status Date / Time codeine AdvReac Unknown Nausea and Verified 09/14/23 19:45 Vomiting baclofen AdvReac Nausea and Verified 09/14/23 19:45 Vomiting sulfamethoxazole AdvReac Nausea and Verified 09/14/23 19:45 [From Bactrim] Vomiting trimethoprim [From Bactrim] AdvReac Nausea and Verified 09/14/23 19:45 Vomiting Review of Systems Review of Systems: A 10 system review of systems was completed on the patient and is negative except for what is stated in the HPI. Nursing and ancillary documentation was reviewed. [facility] Past Medical History Medical History Anxiety Cerebrovascular accident Chronic obstructive pulmonary disease Diastolic congestive heart failure Hyperlipidemia Hypertension Insulin dependent diabetes mellitus Stenosis of left internal carotid artery Surgical History Surgical History History of cholecystectomy History of hysterectomy History of tonsillectomy Family History Family History Father Diabetes mellitus Coronary artery disease Mother Diabetes mellitus Coronary artery disease Colon cancer Sibling Diabetes mellitus Social History Social History Social History: Surrogate medical decision maker: Ellen Tomlinson, sister. Code status: Full code. Smoking packs per day: 0.5 Smo
[2023-09-14] MEDS: IPRATROPIUM 0.5 MG/ALBUTEROL SULFATE 2.5 MG AMPUL.NEB 3 ML 6 ML INHALATION (19:55)
[2023-09-14 20:13] LABS: Fractional Inspired Oxygen 28 %; HCO3 VBG 33.3 mEq/l (24.0-30.0); PCO2 VBG 56.6 mmHg (42.0-48.0); pH VBG 7.388 (7.300-7.400)
[2023-09-14 20:14] LABS: Device NASAL CANNULA
[2023-09-14] MEDS: methylPREDNISolone SOD SUCC 40 MG VIAL 100 MG IV PUSH (20:17)
[2023-09-14 20:18] LABS: Basophils Absolute Auto 0.1 K/mm3 (0.0-0.1); Basophils Percent Auto 0.7 % (0.2-1.2); Eosinophils Absolute Auto 0.3 K/mm3 (0-0.3); Eosinophils Percent Auto 3.6 % (0-4.4); Hematocrit 42.4 % (37.0-47.0); Hemoglobin 13.8 g/dL (12.0-15.0); Immature Granulocyte Absolute 0.03 K/mm3 (0.00-0.031); Immature Granulocyte Percent A 0.3 % (0-0.5); Lymphocytes Absolute Auto 2.62 K/mm3 (0.9-3.2); Lymphocytes Percent Auto 30.2 % (18.3-44.2); Mean Corpuscular HGB Conc 32.5 g/dl (32-36); Mean Corpuscular Hemoglobin 29.9 pg (26-34); Mean Platelet Volume 10.4 fl (7.4-10.4); Monocytes Absolute Auto 0.5 K/mm3 (0.1-0.6); Monocytes Percent Auto 6.2 % (2.6-8.5); Neutrophils Absolute Auto 5.1 K/mm3 (1.3-6.7); Platelet Count Result 179 k/mm3 (150-375); Red Blood Count 4.61 M/mm3 (4.2-5.4); Red Cell Distribution Width 14.7 % (11.5-14.5); White Blood Count 8.7 K/mm3 (4.5-10.0)
[2023-09-14 20:31] LABS: Alanine Aminotransferase 15 U/L (6-35); Albumin Level 3.6 g/dL (3.5-5.1); Alkaline Phosphatase 47 U/L (38-126); Anion Gap 2 mmol/L (8-16); Aspartate Amino Transferase 20 U/L (14-36); Bilirubin,Total 0.9 mg/dL (0.2-1.3); Blood Urea Nitrogen 14 mg/dL (7-17); Calcium 8.8 mg/dL (8.4-10.2); Carbon Dioxide 36 mmol/L (22-30); Chloride 102 mmol/L (98-107); Estimated CRCL calculation 70 ml/min; Estimated Glomerular Filt Rate > 60; Glucose 204 mg/dL (65-110); Potassium 3.7 mmol/L (3.4-5.0); Sodium 140 mmol/L (137-145)
[2023-09-14 20:38] LABS: Prothrombin Time 13.2 Seconds (11.1-14.7)
[2023-09-14 20:54] LABS: Influenza A QL RT-PCR Negative (Negative); Influenza B QL RT-PCR Negative (Negative); RSV RNA, RT-PCR Negative (Negative); SARS-CoV-2 RNA PCR Negative (Negative)
[2023-09-14 21:04] LABS: Troponin I < 0.012 ng/mL (0.000-0.034)
[2023-09-14 21:47] LABS: Appearance Urine Clear (Clear); Bacteria Urine None Seen /hpf; Bilirubin Urine Negative (Negative); Blood Urine Negative (Negative); Color Urine Yellow (Yellow); Glucose Urine UA Negative (Negative); Ketones Urine Negative (Negative); Leukocyte Esterase Ur 2+ LEU/UL (Negative); Nitrate Urine Negative (Negative); Protein Urine Negative (Negative); RBC Urine 0-2 /hpf (0-2); Specific Grav Ur 1.014 (1.001-1.035); Squamous Epithelial Cell Urine Occasional /hpf (Few); WBC Urine 21-50 /hpf; pH Urine 5.5 (5.0-9.0)
[2023-09-14 21:51] LABS: Add Urine Microscopic? YES
== END 2023-09-14 22:20 | disposition home or self-care (01) ==
PROVIDERS: Emergency Provider Student in an Organized Health Care Education/Training Program; PCP Internal Medicine
DX: J44.1 Chronic obstructive pulmonary disease with (acute) exacerbation (principal); Z20.822 Contact with and (suspected) exposure to COVID-19; F17.210 Nicotine dependence, cigarettes, uncomplicated; F41.9 Anxiety disorder, unspecified; I11.0 Hypertensive heart disease with heart failure; I50.9 Heart failure, unspecified; E11.9 Type 2 diabetes mellitus without complications; Z79.4 Long term (current) use of insulin; R82.998 Other abnormal findings in urine
CPT/HCPCS: 36415; 71046; 80053; 81001; 82803; 83735; 84484; 85025; 85380; 85610; 85730; 87086; 87637; 93005; 94640; 96374; 99284; J2920